=== PATIENT | male | born 1950 | race Caucasian/White ===

== ENCOUNTER 2017-07-05 22:05 | Observation (INO) | payer OTHER ==
[~2017-07-05] VITALS: Ht 172.7 cm; Wt 116.0 kg
[~2017-07-05 22:05] MED LIST: ASPI81TA28 PO; ATV/1 PO; CEPH500C2 PO; CHOL100027 PO; LPT40 PO; LSN/10125 PO; MELA1TAB54 PO; OMEG340C PO; PRLSR20 PO
[2017-07-05] MEDS ORDERED: ASPIRIN 324 MG CHEW PO STA (23:03)
--- NOTE | 2017-07-05 23:15 | EMERGENCY ROOM VISIT NOTE ---
History First contact with patient: 22:53 Chief Complaint: CHEST PAIN Stated Complaint: CHEST PAINS Nursing Triage Summary: Patient states "This afternoon when I was driving home, I started with a pain in my chest but it went away. Then it came back. It comes and goes." Denies pain at present. Denies shortness of breath, nausea, and diaphoresis. Hx anxiety. Patient had a heart catheterization in 1991 that came out negative. History of Present Illness The patient is a 67 year old male who presents to the Emergency Room for evaluation of persistent Chest Pain. Patient notes several increasing episodes of left chest pressure beginning this afternoon. Associated with nothing else. He was in car at the time. Denies sob, nausea, vomiting, palpitations, weakness, lightheadedness, leg swelling, calf pain. He has no dvt/pe history nor family history of this. Denies CAD history. He had cath 1991 and stress test "several years ago" which were both normal per patient. He has history of DLP, HTN, Obesity, Extensive Fam Hx CAD. Denies DMII, smoking. No trauma, injuries. Admits chronic sob with stairs which he relates secondary to sedentary lifestyle. No medications prior to arrival. Nothing makes better nor worse. Denies pain currently. No medications taken for this pain but he did take his normal ASA, Lisinopril and Statin today. Source of History: patient Onset: this afternoon Position: chest Quality: other (chest pain) Timing: other (persistent) Associated Symptoms: No nausea, No vomiting, No weakness Note: Patient denies: sob, palpitations, lightheadedness, leg swelling, calf pain Review of Systems See HPI for pertinent positives & negatives. A total of 10 systems reviewed and were otherwise negative. Past Medical/Surgical History Medical Problems: (1) Chest pain (2) Diverticulosis Colon (W/O Ment Of Hemorrhage) (3) Hyperlipidemia Nec/Nos (4) Hypertension Nos Family History Cancer Heart disease Social History Smoking Status: Never Smoker Marital Status: Housing Status: lives with family Occupation Status: employed Current/Historical Medications Scheduled Aspirin (Aspirin Ec), 81 MG PO DAILY Atorvastatin (Lipitor), 40 MG PO DAILY Cholecalciferol (Vitamin D 1000 Unit), 1,000 INTER.UNIT PO DAILY Hctz/Lisinopril (Lisinopril/Hctz 10/12.5 Mg), 1 TAB PO DAILY Melatonin (Melatonin), 5 MG PO HS [place]-3 Fatty Acids ([place] 3), 1 CAP PO DAILY Omeprazole (Prilosec), 20 MG PO DAILY Scheduled PRN Lorazepam (Ativan), 1 MG PO HS PRN for Sleep Meclizine HCl (Meclizine 25), 25 MG PO TID PRN for Dizziness or Vertigo Trazodone Hcl (Trazodone), 1-3 TABS PO HS PRN for Sleep Physical Exam Vital Signs Date Time Temp Pulse Resp B/P (MAP) Pulse Ox O2 Delivery O2 Flow Rate FiO2 07/06/17 00:36 51 17 95 07/06/17 00:31 120/65 07/06/17 00:06 54 18 95 07/06/17 00:01 115/62 07/05/17 23:36 58 19 96 07/05/17 23:31 119/59 07/05/17 23:30 57 19 94 07/05/17 23:23 113/59 07/05/17 22:38 55 07/05/17 22:37 55 20 144/80 97 Room Air 07/05/17 22:11 37.0 64 18 155/68 97 Room Air Physical Exam GENERAL: Patient is well appearing and in no acute distress. HEENT: No acute trauma, normocephalic atraumatic, mucous membranes moist, no nasal congestion, no scleral icterus. NECK: No stridor, no adenopathy, no meningismus, trachea is midline. LUNGS: No dyspnea. Clear to auscultation and equal bilaterally. No wheeze, no rhonchi. HEART: Regular rate and rhythm. No murmurs, rubs, gallops appreciated. ABDOMEN: Soft, nontender, bowel sounds positive, no masses appreciated, no peritonitis. BACK: No midline tenderness, no CVA tenderness EXTREMITIES: Normal motion all extremities, no cyanosis, no edema. NEUROLOGIC: Alert and oriented, no acute motor or sensory deficits, no focal weakness, cranial nerves grossly intact. SKIN: No rash, no jaundice, no diaphoresis. Medical Decision & Procedures ER Provider Diagnostic Interpretation: Radiology results and stated below per my review and radiologist interpretation: Chest x-ray: 2 views: Multiple nodules, no infiltrate, and no effusion. Laboratory Results Test 07/05/17 22:45 07/05/17 22:57 07/06/17 00:19 Est Creatinine Clear Calc Drug Dose 66.3 ml/min Creatine Kinase MB 1.9 ng/ml (0.5-3.6) Creatine Kinase MB Ratio (0-3.0) Bedside Troponin I < 0.030 ng/ml (0-0.045) Magnesium Level 1.9 mg/dl (1.8-2.4) Direct Bilirubin < 0.1 mg/dl (0-0.2) Total Creatine Kinase 115 U/L (39-308) Lipase 195 U/L (73-393) Thyroid Stimulating Hormone (TSH) 2.980 uIu/ml (0.300-4.500) Laboratory results as reviewed by me. Medications Administered Medications (Trade) Dose Ordered Sig/Terence Route Start Time Stop Time Status Last Admin Dose Admin Aspirin (Aspirin Chew) 162 mg NOW STAT PO 07/05/17 23:03 07/05/17 23:04 DC 07/05/17 23:03 162 MG ECG Per My Interpretation Indication: chest pain Rate (beats per minute): 63 Rhythm: normal sinus Findings: PVC, no acute ischemic change ED Course 2250: The patient was evaluated in room C9. A complete history and physical exam was performed. 0016: I reevaluated the patient and discussed some test findings. 0017: Discussed the patient's case with Evelin Zapata. He will evaluate the patient for further treatment. 0026: I reevaluated the patient and updated him on test findings and the treatment plan. He verbalized agreement of the treatment plan. Medical Decision Differential: Cardiac Ischemia (STEMI, NSTEMI, Unstable Angina, etc), Aortic Dissection, Arrhythmia, Pulmonary Embolism, Pneumonia, Pneumothorax, MSK, Infectious, Pericarditis/Myocarditis, Esophageal Rupture, Gastrointestinal, amongst other pathologies entertained. 67 yr old male arrives with left sided intermittent chest pressure. Multiple cardiac risk factors. No current symptoms. Given ASA. EKG negative for ischemia. Trop currently negative. Reviewed this with patient who is agreeable to staying in hospital for cardiac rule out as well as further eval of previously known lung nodules. Abdomen is soft, nontender. No current pain. Did just have care travel though without shob, tachy, leg pain/swelling, nor PE/DVT history I will defer CT Chest decision to hospitalist. Medication Reconcilliation Current Medication List: was personally reviewed by me Blood Pressure Screening Patient's blood pressure: Elevated blood pressure Blood pressure disposition: Elevated BP felt to be situational Consults Time Called: 16 Consulting Physician: Evelin Zapata Returned Call: 16 Discussed the patient's case with Evelin Zapata. He will evaluate the patient for further treatment. Impression Primary Impression: Left sided chest pain Departure Information Dispostion Being Evaluated By Hospitalist Referrals No Doctor, Assigned (PCP) Patient Instructions [facility]
[2017-07-05 23:30] LABS: BASO % 0.3 %; BASO ABS # 0.02 K/uL (0-0.2); EOS % 2.6 %; EOS ABS # 0.17 K/uL (0-0.5); HEMATOCRIT 38.4 % (42-52); HEMOGLOBIN 13.4 g/dL (14.0-18.0); IG# 0.02 K/uL (0.00-0.02); LYMPH % 40.8 %; LYMPH ABS # 2.66 K/uL (1.2-3.4); MEAN CELL VOLUME 92.8 fL (80-100); MEAN CORPUSCULAR HEMOGLOBIN 32.4 pg (25-34); MEAN CORPUSCULAR HGB CONC 34.9 g/dl (32-36); MEAN PLATELET VOLUME 9.1 fL (7.4-10.4); MONO % 7.1 %; MONO ABS # 0.46 K/uL (0.11-0.59); NEUT % 48.9 %; NEUT ABS # 3.19 K/uL (1.4-6.5); PLATELET COUNT 232 K/uL (130-400); RED CELL DISTRIBUTION WIDTH CV 13.4 % (11.5-14.5); RED CELL DISTRIBUTION WIDTH SD 45.7 fL (36.4-46.3); WHITE BLOOD COUNT 6.52 K/uL (4.8-10.8)
[2017-07-06] VITALS (7 sets, daily range): BP systolic 124–170; BP diastolic 68–78; PULSE 56–72; TEMP 36.7–37; O2SAT 94–98; Ht 172.7 cm; Wt 116.0 kg
[2017-07-06 00:08] LABS: BLOOD UREA NITROGEN 29 mg/dl (7-18); CALCIUM 8.9 mg/dl (8.5-10.1); CARBON DIOXIDE 25 mmol/L (21-32); CKMB 1.9 ng/ml (0.5-3.6); GLUCOSE 105 mg/dl (70-99); SODIUM 139 mmol/L (136-145)
[2017-07-06 00:40] LABS: POTASSIUM 4.2 mmol/L (3.5-5.1)
[2017-07-06 01:02] LABS: ALBUMIN 3.5 gm/dl (3.4-5.0); ALKALINE PHOSPHATASE 178 U/L (45-117); ALT/SGPT 107 U/L (12-78); AST/SGOT 64 U/L (15-37); LIPASE 195 U/L (73-393); TOTAL PROTEIN 7.1 gm/dl (6.4-8.2)
[2017-07-06] MEDS ORDERED: LORAZEPAM 1 MG TAB PO ONE (01:04)
[2017-07-06] MEDS ORDERED: NITROGLYCERIN 0.4 MG SL PER TAB CHARGE SL PRN (01:15)
[2017-07-06] MEDS ORDERED: ACETAMINOPHEN 325 MG TAB PO PRN ×2 (01:15→04:45)
[2017-07-06] MEDS ORDERED: LORAZEPAM 2 MG/ML 1 ML VIAL IV PRN (01:15)
[2017-07-06] MEDS ORDERED: MoRPHine SULFATE 4 MG/ML 1 ML CARP\\VIAL IV PRN (01:15)
[2017-07-06] MEDS ORDERED: PROCHLORPERAZINE INJ 5 MG in SYRINGE 4 ML IV PRN (01:15)
[2017-07-06] MEDS ORDERED: LORAZEPAM 1 MG TAB PO PRN (01:15)
[2017-07-06] MEDS ORDERED: TRAMADOL HCL 50 MG TAB PO PRN (01:15)
[2017-07-06 01:20] LABS: PTT PATIENT 26.1 SECONDS (21.0-31.0)
[2017-07-06] MEDS ORDERED: LORAZEPAM 1 MG TAB ONE (01:26)
[2017-07-06] MEDS ORDERED: OPTIRAY 320 IV PRN (01:30)
[2017-07-06] MEDS ORDERED: LORAZEPAM INJ 0.5 MG in SYRINGE 0.75 ML IV PRN (02:00)
[2017-07-06] MEDS ORDERED: NSS + 20MEQ KCL 1000ML 1,000 ML IV SCH (02:00)
[2017-07-06] MEDS ORDERED: TRAZ50TA35 PO (02:10)
[2017-07-06] MEDS ORDERED: MECL-91 PO (02:10)
[2017-07-06 04:18] LABS: BASO % 0.2 %; BASO ABS # 0.01 K/uL (0-0.2); EOS % 3.5 %; HEMATOCRIT 37.7 % (42-52); HEMOGLOBIN 12.9 g/dL (14.0-18.0); IG# 0.01 K/uL (0.00-0.02); LYMPH % 41.1 %; LYMPH ABS # 2.36 K/uL (1.2-3.4); MEAN CELL VOLUME 93.5 fL (80-100); MEAN CORPUSCULAR HGB CONC 34.2 g/dl (32-36); MEAN PLATELET VOLUME 8.9 fL (7.4-10.4); MONO % 5.1 %; MONO ABS # 0.29 K/uL (0.11-0.59); NEUT % 49.9 %; NEUT ABS # 2.87 K/uL (1.4-6.5); PLATELET COUNT 203 K/uL (130-400); RED CELL DISTRIBUTION WIDTH CV 13.2 % (11.5-14.5); RED CELL DISTRIBUTION WIDTH SD 45.2 fL (36.4-46.3); RETIC COUNT % 1.3 % (0.5-2.0); WHITE BLOOD COUNT 5.74 K/uL (4.8-10.8)
[2017-07-06 04:36] LABS: ALBUMIN 3.1 gm/dl (3.4-5.0); ALT/SGPT 97 U/L (12-78); AST/SGOT 54 U/L (15-37); BLOOD UREA NITROGEN 26 mg/dl (7-18); CALCIUM 8.1 mg/dl (8.5-10.1); CARBON DIOXIDE 24 mmol/L (21-32); GLUCOSE 115 mg/dl (70-99); POTASSIUM 4.1 mmol/L (3.5-5.1); SODIUM 139 mmol/L (136-145)
[2017-07-06 04:39] LABS: ALKALINE PHOSPHATASE 165 U/L (45-117); TOTAL PROTEIN 6.6 gm/dl (6.4-8.2); TRANSFERRIN 194 mg/dl (200-360)
[2017-07-06] MEDS ORDERED: IV FLUIDS COMPLETED PRN (05:30)
--- NOTE | 2017-07-06 05:59 | HISTORY & PHYSICAL EXAMINATION ---
DATE OF ADMISSION: 07/06/2017 PRIMARY CARE DOCTOR: Dr. Irby. HISTORY OF PRESENT ILLNESS: History obtained from patient, family, records. Medical history significant for hypertension, sleep apnea on CPAP, past tobacco abuse, hyperlipidemia, pulmonary nodules, anxiety disorder, chronic anemia (baseline hemoglobin of 13) Patient had left-sided chest pain today, nonradiating with some shortness of breath while driving. May have been from anxiety as per family. Patient currently comfortable in the Emergency Room. MEDICAL HISTORY: As above. A stress echo from February 2013 was normal, SURGERIES: He has had a hernia repair, shoulder repair, rotator cuff repair, knee surgery, and hand dorsum tendon repair. HOME MEDICATIONS: Include aspirin, atorvastatin, lisinopril/HCTZ, lorazepam, meclizine, melatonin, omeprazole. ALLERGIES: No known drug allergies. FAMILY HISTORY: Family history of heart disease, strokes, colon cancer. PERSONAL AND SOCIAL HISTORY: Past tobacco use. No chronic alcoholic beverages. 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 REVIEW OF SYSTEMS: As per HPI, all other ROS negative. PHYSICAL EXAMINATION: VITAL SIGNS: Blood pressure was noted to be 138/75, pulse rate 72, RR 17, T 37 sats 97% on room air. GENERAL: Noted to be obese, slightly anxious, no respiratory distress. SKIN: Pallor, warm. HEENT: alopecia. Pale conjunctivae. No ptosis. Dry mucosa. NECK: Short, supple. CHEST: Decreased effort. No tenderness. HEART: RRR, no murmur. ABDOMEN: Some distention, nontender EXTREMITIES: Minimal LE edema, no tenderness. no gross deformity ____ NEUROLOGIC: Coherent, no gross focality. LABORATORY DATA: Hemoglobin noted to be 13.4, WBC 4 platelets 200 Sodium noted to be 138, potassium 4.2, chloride noted to be 107, CO2 25, BUN 29, creatinine 1.3, glucose 105. Troponin 0.015. IMAGING DATA: CTA initial read CAD, no evidence of pulmonary embolus or aortic dissection, extensive mitral annular calcification; calcified granuloma, left lower lobe; small hiatal hernia. EKG as per my interpretation - rate 65, normal sinus rhythm, PVCs. ASSESSMENT: 1. Chest pain Possibly from anxiety rule out acute coronary syndrome. 2. Hyperlipidemia as per records. 3. Hypertension. Stable 4. Chronic anemia, hemoglobin at baseline Patient unaware of previous diagnosis 5. Past tobacco abuse 6. KINSEY on CPAP PLAN: Observation PCU ASA for now for CAD prevention until ACS ruled out. Follow cardiac markers. Dobutamine stress echo in the morning if next troponin negative. Anxiolytic when necessary Anemia workup DVT prophylaxis. Lovenox subQ. Full code. MTDD
[2017-07-06] MEDS ORDERED: ENOXAPARIN 40 MG/0.4 ML SYR SC SCH (06:00)
--- NOTE | 2017-07-06 06:30 | DIAGNOSTIC IMAGING REPORT ---
(CHEST FOR PE) ANGIO WITH CT DOSE: 759.20 mGy.cm HISTORY: Chest pain dyspnea TECHNIQUE: Multiaxial CT images of the chest were performed following the intravenous administration of contrast to evaluate the pulmonary arteries. Maximal intensity projection images were also obtained. A dose lowering technique was utilized adhering to the principles of ALARA. COMPARISON STUDY: None. FINDINGS: There is a normal caliber thoracic aorta with no evidence for dissection. There is no evidence for pulmonary embolus. No pleural effusions. No pneumothorax. The liver and spleen are unremarkable. No mediastinal or hilar lymphadenopathy. The central airways are patent. The lungs are clear. Slight peribronchial thickening throughout both hemithoraces. Scattered atelectasis. Calcified granuloma left midlung. Several calcified hilar and mediastinal nodes. IMPRESSION: No evidence for pulmonary embolus. The lungs are clear. Mild peribronchial thickening. The above report was generated using voice recognition software. It may contain grammatical, syntax or spelling errors. Electronically signed by: Cj Garcia M.D. 07/06/2017 6:29 AM Dictated Date/Time: 07/06/2017 6:22 AM
--- NOTE | 2017-07-06 06:46 | DIAGNOSTIC IMAGING REPORT ---
CHEST ONE VIEW PORTABLE CLINICAL HISTORY: Chest Pain dyspnea COMPARISON STUDY: 04/29/2011 FINDINGS: Poorly defined parenchymal atelectasis left lung base. Lungs otherwise are clear. Diaphragms are smooth. Costophrenic angles are sharp. IMPRESSION: Minimal atelectasis left base. Otherwise negative chest. The above report was generated using voice recognition software. It may contain grammatical, syntax or spelling errors. Electronically signed by: Cj Garcia M.D. 07/06/2017 6:45 AM Dictated Date/Time: 07/06/2017 6:43 AM
[2017-07-06] MEDS ORDERED: PANTOprazole SOD 40 MG TAB PO SCH (09:00)
[2017-07-06] MEDS ORDERED: LISINOPRIL 10 MG TAB PO SCH (09:00)
[2017-07-06] MEDS ORDERED: ASPIRIN 81 MG ECTAB PO SCH (09:00)
[2017-07-06] MEDS ORDERED: METOPROLOL TARTRATE 1 MG/ML VIAL ONE ×2 (13:57)
[2017-07-06] MEDS ORDERED: ATROPINE SULFATE 0.1 MG/ML 5ML SYR ONE ×2 (13:57)
[2017-07-06] MEDS ORDERED: DOBUTamine HCL 12.5 MG/ML 20 ML VIAL ONE (13:57)
--- NOTE | 2017-07-06 14:12 | Progress Note ---
Internal Med Progress Note Date of Service: Jul 06, 2017. Provider Documentation: SUBJECTIVE: Seen and examined at bedside States chest pain resolved Denies dizziness, nausea, SOB Family at bedside No other complaints OBJECTIVE: Vital Signs-as noted below Physical Exam: General Appearance: Obese, no apparent distress Head: normocephalic, Atraumatic Eyes: normal inspection, EOMI, PERRL Neck: supple, Trachea midline Respiratory/Chest: Normal breath sounds, CTA Cardiovascular: S1, S2, No murmur Abdomen/GI:Soft, Non tender, Bowel sounds present Extremities/Musculoskelatal:normal inspection, no edema Neurologic/Psych:AAOX3, grossly no focal neurological deficits Skin: normal color, warm Lab data as noted below. ASSESSMENT & PLAN: Chest Pain: R/O ACS Troponin: X 2:Negative EKG:NSR, 1st degree AV block CXR:Minimal atelectasis left base. Otherwise negative chest. CTA:No evidence for pulmonary embolus. The lungs are clear. Mild peribronchial thickening. TSH normal Continue Aspirin Negative stress test. Hypertension: Stable continue lisinopril Chronic anemia: hemoglobin at baseline Anxiety disorder: Lorazepam PRN Past tobacco abuse KINSEY continue CPAP Pulmonary Nodules: Advised to follow up with his Etl Bi Developer as outpatient DVT Px: Lovenox SQ Code Status: Full code Disposition: Expect to discharge home when stable Follow up with your PCP on July 11, 2017 at 10:45AM Follow up with your Match Maker on July at 2:45pm Seek immediate medical attention if your symptoms reoccur or worsen Vital Signs: Date Time Temp Pulse Resp B/P (MAP) Pulse Ox O2 Delivery O2 Flow Rate FiO2 07/06/17 11:37 36.7 57 16 125/74 (91) 94 Room Air 07/06/17 08:00 36.8 62 18 129/68 (88) 98 Room Air 07/06/17 08:00 98 Room Air 07/06/17 06:25 52 07/06/17 05:35 68 16 170/78 (108) 97 Room Air 07/06/17 03:11 56 17 07/06/17 03:04 97 Room Air 07/06/17 02:55 97 Room Air 07/06/17 02:41 66 16 07/06/17 02:37 36.9 56 16 137/75 97 Room Air 07/06/17 02:12 83 07/06/17 02:11 80 19 07/06/17 01:56 138/75 07/06/17 01:41 71 17 07/06/17 01:32 111/105 07/06/17 01:11 58 15 07/06/17 01:01 112/97 07/06/17 00:41 55 19 95 07/06/17 00:36 51 17 95 07/06/17 00:31 120/65 07/06/17 00:06 54 18 95 07/06/17 00:01 115/62 07/05/17 23:36 58 19 96 07/05/17 23:31 119/59 07/05/17 23:30 57 19 94 07/05/17 23:23 113/59 07/05/17 22:38 55 07/05/17 22:37 55 20 144/80 97 Room Air 07/05/17 22:11 37.0 64 18 155/68 97 Room Air Lab Results: Results Past 24 Hours Test 07/05/17 22:45 07/05/17 22:57 07/06/17 00:19 07/06/17 00:59 Range/Units White Blood Count 6.52 4.8-10.8 K/uL Red Blood Count 4.14 4.7-6.1 M/uL Hemoglobin 13.4 14.0-18.0 g/dL Hematocrit 38.4 42-52 % Mean Corpuscular Volume 92.8 80-100 fL Mean Corpuscular Hemoglobin 32.4 25-34 pg Mean Corpuscular Hemoglobin Concent 34.9 32-36 g/dl Platelet Count 232 130-400 K/uL Mean Platelet Volume 9.1 7.4-10.4 fL Neutrophils (%) (Auto) 48.9 % Lymphocytes (%) (Auto) 40.8 % Monocytes (%) (Auto) 7.1 % Eosinophils (%) (Auto) 2.6 % Basophils (%) (Auto) 0.3 % Neutrophils # (Auto) 3.19 1.4-6.5 K/uL Lymphocytes # (Auto) 2.66 1.2-3.4 K/uL Monocytes # (Auto) 0.46 0.11-0.59 K/uL Eosinophils # (Auto) 0.17 0-0.5 K/uL Basophils # (Auto) 0.02 0-0.2 K/uL RDW Standard Deviation 45.7 36.4-46.3 fL RDW Coefficient of Variation 13.4 11.5-14.5 % Immature Granulocyte % (Auto) 0.3 % Immature Granulocyte # (Auto) 0.02 0.00-0.02 K/uL Sodium Level 139 136-145 mmol/L Potassium Level 4.2 3.5-5.1 mmol/L Chloride Level 107 98-107 mmol/L Carbon Dioxide Level 25 21-32 mmol/L Anion Gap 7.0 3-11 mmol/L Blood Urea Nitrogen 29 7-18 mg/dl Creatinine 1.30 0.60-1.40 mg/dl Est Creatinine Clear Calc Drug Dose 66.3 ml/min Estimated GFR () 64.5 Estimated GFR (Non- 55.7 BUN/Creatinine Ratio 22.3 10-20 Random Glucose 105 70-99 mg/dl Calcium Level 8.9 8.5-10.1 mg/dl Total Creatine Kinase 115 39-308 U/L Creatine Kinase MB 1.9 0.5-3.6 ng/ml Creatine Kinase MB Ratio 0-3.0 Troponin I < 0.015 0-0.045 ng/ml Bedside Troponin I < 0.030 0-0.045 ng/ml Magnesium Level 1.9 1.8-2.4 mg/dl Total Bilirubin 0.3 0.2-1 mg/dl Direct Bilirubin < 0.1 0-0.2 mg/dl Aspartate Amino Transf (AST/SGOT) 64 15-37 U/L Alanine Aminotransferase (ALT/SGPT) 107 12-78 U/L Alkaline Phosphatase 178 45-117 U/L Total Protein 7.1 6.4-8.2 gm/dl Albumin 3.5 3.4-5.0 gm/dl Lipase 195 73-393 U/L Thyroid Stimulating Hormone (TSH) 2.980 0.300-4.500 uIu/ml Prothrombin Time 10.0 9.0-12.0 SECONDS Prothromb Time International Ratio 1.0 0.9-1.1 Activated Partial Thromboplast Time 26.1 21.0-31.0 SECONDS Partial Thromboplastin Ratio 1.0 D-Dimer 740 0-500 ug/L FEU Test 07/06/17 04:05 Range/Units White Blood Count 5.74 4.8-10.8 K/uL Red Blood Count 4.03 4.7-6.1 M/uL Hemoglobin 12.9 14.0-18.0 g/dL Hematocrit 37.7 42-52 % Mean Corpuscular Volume 93.5 80-100 fL Mean Corpuscular Hemoglobin 32.0 25-34 pg Mean Corpuscular Hemoglobin Concent 34.2 32-36 g/dl Platelet Count 203 130-400 K/uL Mean Platelet Volume 8.9 7.4-10.4 fL Neutrophils (%) (Auto) 49.9 % Lymphocytes (%) (Auto) 41.1 % Monocytes (%) (Auto) 5.1 % Eosinophils (%) (Auto) 3.5 % Basophils (%) (Auto) 0.2 % Neutrophils # (Auto) 2.87 1.4-6.5 K/uL Lymphocytes # (Auto) 2.36 1.2-3.4 K/uL Monocytes # (Auto) 0.29 0.11-0.59 K/uL Eosinophils # (Auto) 0.20 0-0.5 K/uL Basophils # (Auto) 0.01 0-0.2 K/uL RDW Standard Deviation 45.2 36.4-46.3 fL RDW Coefficient of Variation 13.2 11.5-14.5 % Immature Granulocyte % (Auto) 0.2 % Immature Granulocyte # (Auto) 0.01 0.00-0.02 K/uL Absolute Reticulocyte Count 0.05 0.02-0.10 10^6/uL Percent Reticulocyte Count 1.3 0.5-2.0 % Sodium Level 139 136-145 mmol/L Potassium Level 4.1 3.5-5.1 mmol/L Chloride Level 108 98-107 mmol/L Carbon Dioxide Level 24 21-32 mmol/L Anion Gap 7.0 3-11 mmol/L Blood Urea Nitrogen 26 7-18 mg/dl Creatinine 1.20 0.60-1.40 mg/dl Est Creatinine Clear Calc Drug Dose 71.8 ml/min Estimated GFR () 71.1 Estimated GFR (Non- 61.3 BUN/Creatinine Ratio 22.0 10-20 Random Glucose 115 70-99 mg/dl Calcium Level 8.1 8.5-10.1 mg/dl Iron Level 77 35-175 mcg/dl Total Iron Binding Capacity 242 250-450 mcg/dl Transferrin 194 200-360 mg/dl Transferrin % Saturation 28 20-50 % Ferritin 482.7 8.0-388.0 ng/ml Total Bilirubin 0.2 0.2-1 mg/dl Aspartate Amino Transf (AST/SGOT) 54 15-37 U/L Alanine Aminotransferase (ALT/SGPT) 97 12-78 U/L Alkaline Phosphatase 165 45-117 U/L Troponin I < 0.015 0-0.045 ng/ml Total Protein 6.6 6.4-8.2 gm/dl Albumin 3.1 3.4-5.0 gm/dl Globulin 3.5 2.5-4.0 gm/dl Albumin/Globulin Ratio 0.9 0.9-2 Vitamin B12 Level 241 211-911 pg/mL Folate 7.64 >5.38 ng/mL
[2017-07-06] MEDS ORDERED: PERFLUTREN LIPID MICROSPHERE (DEFINITY) IV ONE (15:26)
--- NOTE | 2017-07-06 16:37 | Discharge Instructions ---
Discharge Instructions Date of Service Jul 06, 2017. Admission Reason for Admission: Chest Pain Discharge Discharge Diagnosis / Problem: Chest Pain Discharge Goals Goal(s): Decrease discomfort, Improve function Activity Recommendations Activity Limitations: resume your previous activity Exercise/Sports Limitations: as tolerated . Instructions / Follow-Up Instructions / Follow-Up Follow up with your PCP on July 11, 2017 at 10:45AM Follow up with your Military Analyst on July at 2:45pm Seek immediate medical attention if your symptoms reoccur or worsen Current Hospital Diet Patient's current hospital diet: AHA Diet (Heart Healthy) Discharge Diet Recommended Diet: AHA Diet (Heart Healthy) Pending Studies Studies pending at discharge: no Medical Emergencies . Who to Call and When: Medical Emergencies: If at any time you feel your situation is an emergency, please call 911 immediately. . Non-Emergent Contact Non-Emergency issues call your: Primary Care Provider, Military Analyst Call Non-Emergent contact if: you have a fever, your pain is not controlled, your pain is worsening, your pain is unusual for you, your pain is concerning you, you have any medication questions Seek immediate medical attention if your symptoms reoccur or worsen . . "Provider Documentation" section prepared by Jeremy Donato. .
--- NOTE | 2017-07-06 16:40 | DOBUTAMINE ECHO ---
*NOTICE TO RECEIVING LIBERTARIAN AGENCY This information is strictly Confidential and protected under [place] law. [place] law prohibits you from making any further disclosure of this information unless further disclosure is expressly permitted by the written consent of the person to whom it pertains or is authorized by law. A general authorization for the release of medical or other information is not sufficient for this purpose. Hospital accepts no responsibility if the information is made available to any other person, INCLUDING THE PATIENT. Interpretation Summary * Name: SLADE FORTUNE Study Date: 07/06/2017 02:24 PM BP: 149/66 mmHg * Patient Location: [facility]\S\N288\S\1 HR: 63 * : 1950 (M/d/yyyy) Gender: Male Height: 68 in * Age: 67 yrs Ethnicity: [place] Weight: 255 lb * Ordering Physician: Arnol Massey * Referring Physician: Self, Referred * Performed By: Darwin Krueger RCS * * Reason For Study: CHEST PAIN * BSA: 2.3 m2 * -- Conclusions -- * Nonischemic exercise stress echocardiogram. * No arrhythmias. * Normal HR and BP response to dobutamine infusion. * At rest, normal LV chamber size with mild concentric LVH. * Normal LV systolic function, EF 65-70%. * No segmental left ventricular wall motion abnormalities are noted. * Grade II diastolic dysfunction. * Aortic valve sclerosis moderate, without significant aortic valvular stenosis. * Moderate mitral annular calcifications. * Mild left atrial enlargement. Procedure Details * DOBUTAMINE ECHO, CPT#[id number] * ECHO COLOR FLOW, CPT #[id number] * ECHO DOPPLER, CPT #[id number] * A contrast injection of Definity was performed to improve assessment of LV function. * Contrast was injected into an intravenous site in the right arm. * One vial of Definity ultrasound contrast was diluted in normal saline to a total volume of 10 ml. A total of '3' ml of solution was administered during imaging. * Lot # [id number] of Definity utilized for procedure. * Expiration date . * The attending nurse who injected the contrast agent was Mark Callahan RN. Left Ventricle * The left ventricle is normal in size. * There is mild concentric left ventricular hypertrophy. * Left ventricular systolic function is normal. * No segmental left ventricular wall motion abnormalities are noted. * Ejection Fraction = 65-70%. * Resting wall motion: Normal. Stress wall motion: Appropriate increase in Left ventricular systolic function and decrease in cavity size. No stress induced segmental wall motion abnormalities. Right Ventricle * The right ventricular cavity size is normal (basal dimension <4.2 cm in right ventricular apical 4-chamber view). * The right ventricular systolic function is normal as assessed by tricuspid annular plane systolic excursion (TAPSE) (normal >1.5 cm). Atria * The left atrium is mildly dilated. * Right atrial size is normal. * No ASD detected; PFO is not assessed. * The atrial septum is aneurysmal. Mitral Valve * There is moderate mitral annular calcification. * There is no mitral valve stenosis. * There is no mitral regurgitation noted. Tricuspid Valve * The tricuspid valve is normal in structure and function. Aortic Valve * The aortic valve is trileaflet. * Aortic valve sclerosis moderate, without significant aortic valvular stenosis. * There is no significant aortic regurgitation. Pulmonic Valve * The pulmonary valve is not well seen, but the Doppler examination is normal without significant regurgitation or stenosis. Great Vessels * The aortic root and proximal ascending aorta are normal sized. Pericardium * There is no pericardial effusion. Stress Parameters * Normal baseline electrocardiogram. * No arrhythmia were noted with stress. * Stress ECG: No ST changes. No arrhythmias. * The stress portion of this study was personally supervised by the undersigned interpreting physician. * Rest heart rate was '63' BPM. * Rest blood pressure was '149/66' * Maximum heart rate achieved was 148 bpm. * Maximum heart rate was 98 % of maximum age-predicted heart rate. * Maximum blood pressure was '151/64' * Maximum Dobutamine infusion rate was '40' mcg/kg/min. * Dobutamine infusion was terminated due to achieving target heart rate * A total of 5 mg of IV Metoprolol was administered to reverse Dobutamine-induced tachycardia. * The patient did not exhibit any symptoms during drug infusion. * Normal blood pressure response to exercise. Left Ventricular Diastolic Function * Diastolic dysfunction, Grade II (pseudonormalization pattern). MMode 2D Measurements and Calculations IVSd 1.1 cm IVSs 1.8 cm LVIDd 5.2 cm LVIDs 3.6 cm LVPWd 1.1 cm LVPWs 1.8 cm IVS/LVPW 1.0 FS 30.6 % EDV(Teich) 130.5 ml ESV(Teich) 55.2 ml EF(Teich) 57.7 % EDV(cubed) 142.0 ml ESV(cubed) 47.5 ml EF(cubed) 66.6 % % IVS thick 59.8 % % LVPW thick 55.6 % LV mass(C)d 229.3 grams LV mass(C)dI 101.2 grams/m\S\2 LV mass(C)s 268.3 grams LV mass(C)sI 118.4 grams/m\S\2 SV(Teich) 75.3 ml SI(Teich) 33.2 ml/m\S\2 SV(cubed) 94.5 ml SI(cubed) 41.7 ml/m\S\2 Ao root diam 3.6 cm Ao root area 10.4 cm\S\2 ACS 1.5 cm LA dimension 4.5 cm asc Aorta Diam 3.7 cm LA/Ao 1.3 EDV(MOD-sp4) 139.1 ml ESV(MOD-sp4) 41.3 ml EF(MOD-sp4) 70.3 % EDV(MOD-sp2) 131.8 ml ESV(MOD-sp2) 39.9 ml EF(MOD-sp2) 69.7 % SV(MOD-sp4) 97.8 ml SI(MOD-sp4) 43.2 ml/m\S\2 SV(MOD-sp2) 91.9 ml SI(MOD-sp2) 40.6 ml/m\S\2 Doppler Measurements and Calculations MV E max elroy 91.0 cm/sec MV A max elroy 83.8 cm/sec MV E/A 1.1 MV P1/2t max elroy 96.0 cm/sec MV P1/2t 73.5 msec MVA(P1/2t) 3.0 cm\S\2 MV dec slope 382.4 cm/sec\S\2 MV dec time 0.23 sec Ao V2 max 171.4 cm/sec Ao max PG 11.7 mmHg Ao max PG (full) 4.8 mmHg LV V1 max PG 6.9 mmHg LV V1 max 131.5 cm/sec PA V2 max 97.4 cm/sec PA max PG 3.8 mmHg TR max elroy 245.5 cm/sec
--- NOTE | 2017-07-06 16:42 | Discharge Summary ---
Discharge Summary Date of Service Jul 06, 2017. Discharge Summary Admission Date: Jul 06, 2017 at 00:36 Discharge Date: Jul 06, 2017 Discharge Disposition: Home Principal Diagnosis: Chest Pain Procedures: CTA: No evidence for pulmonary embolus. The lungs are clear. Mild peribronchial thickening. CXR: Minimal atelectasis left base. Otherwise negative chest. Stress Test: * Nonischemic exercise stress echocardiogram. * No arrhythmias. * Normal HR and BP response to dobutamine infusion. * At rest, normal LV chamber size with mild concentric LVH. * Normal LV systolic function, EF 65-70%. * No segmental left ventricular wall motion abnormalities are noted. * Grade II diastolic dysfunction. * Aortic valve sclerosis moderate, without significant aortic valvular stenosis. * Moderate mitral annular calcifications. * Mild left atrial enlargement. Consultations: None Medication Reconciliation Continued Medications: Aspirin (Aspirin Ec) 81 Mg Tab 81 MG PO DAILY Atorvastatin (Lipitor) 40 Mg Tab 40 MG PO DAILY Cholecalciferol (Vitamin D 1000 Unit) 1,000 Unit Cap 1000 INTER.UNIT PO DAILY, CAP Hctz/Lisinopril (Lisinopril/Hctz 10/12.5 Mg) 1 Ea Tab 1 TAB PO DAILY, TAB Lorazepam (Ativan) 1 Mg Tab 1 MG PO HS PRN for Sleep Meclizine HCl (Meclizine 25) 25 Mg Tab 25 MG PO TID PRN for Dizziness or Vertigo Melatonin (Melatonin) 5 Mg Tab 5 MG PO HS [place]-3 Fatty Acids ([place] 3) 1 Cap Cap 1 CAP PO DAILY Omeprazole (Prilosec) 20 Mg Capcr 20 MG PO DAILY, CAP TAKE THIS MEDICATION ONCE A DAY 30 MINUTES BEFORE A MEAL. Trazodone Hcl (Trazodone) 50 Mg Tab 1-3 TABS PO HS PRN for Sleep Admission Information HPI (per Admitting provider): HISTORY OF PRESENT ILLNESS: History obtained from patient, family, records. Medical history significant for hypertension, sleep apnea on CPAP, past tobacco abuse, hyperlipidemia, pulmonary nodules, anxiety disorder, chronic anemia (baseline hemoglobin of 13) Patient had left-sided chest pain today, nonradiating with some shortness of breath while driving. May have been from anxiety as per family. Patient currently comfortable in the Emergency Room. Physical Exam (per Admitting): PHYSICAL EXAMINATION: VITAL SIGNS: Blood pressure was noted to be 138/75, pulse rate 72, RR 17, T 37 sats 97% on room air. GENERAL: Noted to be obese, slightly anxious, no respiratory distress. SKIN: Pallor, warm. HEENT: alopecia. Pale conjunctivae. No ptosis. Dry mucosa. NECK: Short, supple. CHEST: Decreased effort. No tenderness. HEART: RRR, no murmur. ABDOMEN: Some distention, nontender EXTREMITIES: Minimal LE edema, no tenderness. no gross deformity ____ NEUROLOGIC: Coherent, no gross focality. Hospital Course Chest Pain: R/O ACS Troponin: X 2:Negative EKG:NSR, 1st degree AV block CXR:Minimal atelectasis left base. Otherwise negative chest. CTA:No evidence for pulmonary embolus. The lungs are clear. Mild peribronchial thickening. TSH normal Continue Aspirin Negative stress test. Hypertension: Stable continue lisinopril Chronic anemia: hemoglobin at baseline Anxiety disorder: Lorazepam PRN Past tobacco abuse KINSEY continue CPAP Pulmonary Nodules: Advised to follow up with his Head Bookkeeper as outpatient DVT Px: Lovenox SQ Code Status: Full code Disposition: Expect to discharge home when stable Follow up with your PCP on July 11, 2017 at 10:45AM Follow up with your Digital Printer on July at 2:45pm Seek immediate medical attention if your symptoms reoccur or worsen Total time spent on discharge = This includes examination of the patient, discharge planning, medication reconciliation, and communication with other providers. Discharge Instructions Discharge Instructions Date of Service Jul 06, 2017. Admission Reason for Admission: Chest Pain Discharge Discharge Diagnosis / Problem: Chest Pain Discharge Goals Goal(s): Decrease discomfort, Improve function Activity Recommendations Activity Limitations: resume your previous activity Exercise/Sports Limitations: as tolerated . Instructions / Follow-Up Instructions / Follow-Up Follow up with your PCP on July 11, 2017 at 10:45AM Follow up with your Digital Printer on July at 2:45pm Seek immediate medical attention if your symptoms reoccur or worsen Current Hospital Diet Patient's current hospital diet: AHA Diet (Heart Healthy) Discharge Diet Recommended Diet: AHA Diet (Heart Healthy) Pending Studies Studies pending at discharge: no Medical Emergencies . Who to Call and When: Medical Emergencies: If at any time you feel your situation is an emergency, please call 911 immediately. . Non-Emergent Contact Non-Emergency issues call your: Primary Care Provider, Digital Printer Call Non-Emergent contact if: you have a fever, your pain is not controlled, your pain is worsening, your pain is unusual for you, your pain is concerning you, you have any medication questions Seek immediate medical attention if your symptoms reoccur or worsen . . "Provider Documentation" section prepared by Jeremy Donato. . <Electronically signed by Jeremy Donato MD> Signed: 07/06/17 [id number] Signed: The status of this report is Signed * If report status is Draft, the document has not been finalized by the responsible provider.
== END 2017-07-06 16:25 | disposition home or self-care (01) ==
LOC: C.EDB 22:05 → C.EDINP 07-06 00:36 → ENRESERV 07-06 08:27 → C.MED 07-06 10:47
PROVIDERS: ADMIT Internal Medicine; ATTEND Internal Medicine
DX: R07.9 Chest pain, unspecified (principal); I10 Essential (primary) hypertension; G47.33 Obstructive sleep apnea (adult) (pediatric); D64.9 Anemia, unspecified; E78.5 Hyperlipidemia, unspecified; E66.9 Obesity, unspecified; Z68.38 Body mass index [BMI] 38.0-38.9, adult; Z79.82 Long term (current) use of aspirin; Z87.891 Personal history of nicotine dependence; Z99.89 Dependence on other enabling machines and devices; Z82.49 Family history of ischemic heart disease and other diseases of the circulatory system; Z82.3 Family history of stroke; Z80.0 Family history of malignant neoplasm of digestive organs

== ENCOUNTER 2018-12-25 07:54 | Inpatient (IN) ==
--- NOTE | 2018-11-05 14:30 | PAT Medication Instructions ---
Medication Instructions Date of Service November 05, 2018 Continue as directed Fish Oil 1 dose PO QAM aspirin 81 mg PO QAM atorvastatin 40 mg PO HS cholecalciferol (vitamin D3) [Vitamin D3] 1,000 unit PO QAM lisinopril-hydrochlorothiazide 1 tab PO QAM lorazepam 1 mg PO HS PRN meclizine 25 mg PO DAILY PRN melatonin 10 mg PO HS PRN omeprazole 20 mg PO BID STOP taking 2 weeks before surgery (or as soon as possible if surgery is within 2 weeks) Fish Oil 1 dose PO QAM DO NOT take the morning of surgery cholecalciferol (vitamin D3) [Vitamin D3] 1,000 unit PO QAM lisinopril-hydrochlorothiazide 1 tab PO QAM Take morning of surgery With a small sip of water, OTHERWISE NOTHING TO EAT OR DRINK AFTER MIDNIGHT: aspirin 81 mg PO QAM meclizine 25 mg PO DAILY PRN (if needed) omeprazole 20 mg PO BID Take evening before surgery atorvastatin 40 mg PO HS lorazepam 1 mg PO HS PRN meclizine 25 mg PO DAILY PRN (if needed) melatonin 10 mg PO HS PRN (if needed) omeprazole 20 mg PO BID Other Notes If you have any questions please call us at [phone] or [phone] or [phone] or [phone]
--- NOTE | 2018-11-06 12:52 | Anesthesiology Consultation ---
Date of Service November 06, 2018 Assessment & Plan (1) Encounter for pre-operative examination: - Preop EKG done 11/06/18 still unconfirmed at time of review. Will need to review confirmed EKG AM DOS. - ASA: OK to continue ASA perioperatively per surgeon. Chart Review Chart Review: Acceptable Risk for Surgery and Patient seen in Pre Admission Testing Teaching & Discussion Pre-Anesthesia Teaching/Discussion Notes: Instructed NPO after midnight before surgery,except medications with 15 cc of water. Medication instructions provided according to the PAT guidelines. History Surgery Operation Date: 12/25/18 07:00 Proposed Procedures p Left Knee Arthroplasty Uni Compartment versus - Rafael Keating MD s Total Knee Replacement - Rafael Keating MD Height/Weight Height: 5 ft 10 in Weight: 120.2 kg Allergies Allergy/AdvReac Type Severity Reaction Status Date / Time No Known Allergies Allergy Unknown Verified 11/01/18 14:38 Medications Home Medications Medication Instructions Recorded Confirmed Last Taken Fish Oil 1 dose PO QAM 11/01/18 11/01/18 Unknown aspirin 81 mg PO QAM 11/01/18 11/01/18 Unknown atorvastatin 40 mg PO HS 11/01/18 11/01/18 Unknown cholecalciferol (vitamin D3) 1,000 unit PO QAM 11/01/18 11/01/18 Unknown [Vitamin D3] lisinopril-hydrochlorothiazide 1 tab PO QAM 11/01/18 11/01/18 Unknown lorazepam 1 mg PO HS PRN 11/01/18 11/01/18 Unknown meclizine 25 mg PO DAILY PRN 11/01/18 11/01/18 Unknown melatonin 10 mg PO HS PRN 11/01/18 11/01/18 Unknown omeprazole 20 mg PO BID 11/01/18 11/01/18 Unknown Past Medical History Medical History Anxiety Degenerative disc disease Fatty liver GERD (gastroesophageal reflux disease) OCCASIONAL HTN (hypertension) Hard of hearing RIGHT EAR Hyperlipidemia Insomnia Obesity Osteoarthritis Sleep apnea CPAP Vertigo Exercise / Class Metabolic Activity III < 4 Walking/Shop/Light housework Past Family History Family History Brother Family history of diabetes mellitus Mother Family history of diabetes mellitus Brother Family hx of colon cancer Past Surgical History Surgical History History of arthroscopy of right knee History of cardiac cath 1994= NO STENTS History of carpal tunnel release LT History of colonoscopy W/ POLYPECTOMY History of esophagogastroduodenoscopy (EGD) History of inguinal hernia repair RT History of repair of rotator cuff RT History of tooth extraction History of umbilical hernia repair Past Anesthesia History No Hx of Anesthesia Complications and No Family Hx of Anesthesia Complications History of PONV No Hx of PONV and No Hx of Motion Sickness Social History Smoking Status: Never smoker Do You Dip or Chew Tobacco: No (QUIT ) Hx Alcohol Use: Yes alcohol intake frequency: holidays/special occasions only Hx Substance Use: No substance use type: does not use Review of Systems Occasional reflux. Patient denies chest pain, shortness of breath, cough, wheezing, palpitations. Physical Exam Vital Signs VITALS BP 110/64 P 68 TEMP 98.2 SP02 97%RA RESP 18 PHYSICAL Full neck and c-spine range of motion. Full TMJ range of motion. TMD 3 finger breaths Mallampati Score 2 Dentition: upper front "glued" in permanent teeth, several missing sides/molars Lungs: clear throughout to auscultation Cardiac: regular rate and rhythm, no murmurs noted, distant heart sounds Spine: normal Carotid arteries: negative bruit Extremities: no edema Short, thick neck Testing Laboratory Results 11/06/18 13:10 11/06/18 13:10 PT 10.1 Seconds (9.0-12.0) 11/06/18 13:10 INR 1.0 (0.9-1.1) 11/06/18 13:10 APTT 25.6 Seconds (21.0-31.0) 11/06/18 13:10 Blood Type O Positive 11/06/18 13:10 Antibody Screen NEGATIVE 11/06/18 13:10 Electrocardiogram Date: 11/06/18 SR with first degree AVB at 63bpm. Otherwise "normal" EKG (unconfirmed). Chest X-Ray Date: 11/07/18 Findings: + NAD Stress Test Date: 07/06/17 Type: exercise (+ DSE) Nonischemic exercise stress test. No arrhythmias. Mild cLVH. EF 65-70%. Grade II DD. Moderate AV sclerosis. Mild LAE. Moderate annular calcifications. 98% MPHR.
--- NOTE | 2018-11-06 13:55 | XRay Report ---
XR chest Pre-admission PA/Lat HISTORY: Preop. COMPARISON: Chest CTA 07/06/2017. FINDINGS: The lungs are clear. Cardiac silhouette is normal in size. No pleural effusions. No pneumot horax. IMPRESSION: No acute process. Electronically signed by: Sudeep Livingston M.D. 11/06/2018 1:54 PM
[2018-11-06 15:37] LABS: Basophils # (auto) 0.02 K/uL (0-0.2); Basophils % (auto) 0.3 %; Eosinophils # (auto) 0.18 K/uL (0-0.5); Eosinophils % (auto) 2.9 %; Hematocrit (blood only) 39.6 % (42-52); Hemoglobin 13.8 g/dL (14.0-18.0); Immature Granulocytes # (auto) 0.01 K/uL (0.00-0.02); Immature Granulocytes % (auto) 0.2 %; Lymphocytes # (auto) 2.32 K/uL (1.2-3.4); Lymphocytes % (auto) 37.7 %; Mean Corpuscular Hgb Conc 34.8 g/dL (32-36); Mean Corpuscular Volume 91.7 fL (80-100); Mean Platelet Volume 9.4 fL (7.4-10.4); Monocytes # (auto) 0.35 K/uL (0.11-0.59); Monocytes % (auto) 5.7 %; Neutrophils # (auto) 3.27 K/uL (1.4-6.5); Neutrophils % (auto) 53.2 %; Platelet Count 251 K/uL (130-400); RDW Coefficient of Variation 12.7 % (11.5-14.5); RDW Standard Deviation 42.6 fL (36.4-46.3); Red Blood Count 4.32 M/uL (4.7-6.1); White Blood Count 6.15 K/uL (4.8-10.8)
[2018-11-06 15:46] LABS: BUN Creatinine Ratio 21.3 (10-20); Calcium 9.2 mg/dl (8.5-10.1); Creatinine Clr Calc Pharmacy 66.2 ml/min; Est GFR (African American) 61.2; Est GFR (Non-African American) 52.8
[2018-11-06 15:49] LABS: Partial Thromboplastin Ratio 0.9; Partial Thromboplastin Time 25.6 Seconds (21.0-31.0); Prothrombin Time 10.1 Seconds (9.0-12.0)
--- NOTE | 2018-12-22 19:44 | History and Physical Report ---
DATE OF ADMISSION: 12/25/2018 CHIEF COMPLAINT: Bilateral knee pain and discomfort, left side greater than the right. HISTORY OF PRESENT ILLNESS: A 68-year-old gentleman who presents for surgical treatment of his left knee. He has a long history of bilateral knee pain and discomfort, left side a bit worse than the right. We have been treating with injections over the past several years that has become less successful over time. Pain is mostly on the medial side of his knee. He has a limited walking tolerance. The more he walks, the more it hurts. He now would like to proceed with surgical treatment. PAST MEDICAL HISTORY: 1. Hypertension. 2. Elevated cholesterol. 3. Sleep apnea with CPAP machine. 4. Anxiety/depression. 5. Spinal stenosis. 6. Obesity, BMI of 38. 7. Gastroesophageal reflux disease. PAST SURGICAL HISTORY: 1. Herniorrhaphy. 2. Left carpal tunnel release. 3. Right rotator cuff repair. 4. Right knee arthroscopy and microfracture in 2009. ALLERGIES: None. CURRENT MEDICATIONS: 1. Atorvastatin. 2. Lisinopril. 3. Omeprazole. 4. Lorazepam. 5. Low dose aspirin. 6. Fish oil. 7. Vitamin D. 8. Melatonin. SOCIAL HISTORY: A 68-year-old male. He is from [place]. Does not smoke. One drink per week. FAMILY HISTORY: Noncontributory. REVIEW OF HISTORY: Negative for diabetes, neurologic problems, vascular problems, or bleeding disorders. No chest pain or shortness of breath. No history of DVT or PE. PHYSICAL EXAMINATION: GENERAL: Shows a pleasant, middle-aged male. He looks to be in reasonably good health. HEENT: Benign. NECK: Supple, no lymphadenopathy. LUNGS: Clear to auscultation. HEART: Regular rate and rhythm. ABDOMEN: Soft, nontender, nondistended. EXTREMITIES: Grossly neurovascularly intact except as follows: Examination of both knees reveals the patient ambulates independently. He has got varus alignment to both knees. Examination of the left knee reveals tenderness over the medial joint line. Small knee effusion. Range of motion 0-125. No instability. ACL seems to be working appropriately. Examination of the right knee reveals varus alignment. He has got bony hypertrophy medially. Small knee effusion. Range of motion 5-125. No instability. X-RAYS: X-rays of both knees were reviewed. X-rays of left knee revealed fairly advanced medial compartment DJD. He has got complete loss of his medial joint space. The rest of his knee looks pretty good. Examination of the right knee reveals moderate tricompartment disease. He has got medial compartment narrowing. He has got osteophytes of the medial femoral condyle, subchondral sclerosis and chondrocalcinosis. ASSESSMENT: A 68-year-old male with advanced bilateral knee degenerative joint disease, left side more symptomatic than the right. He has been through extensive conservative treatment. He would like to proceed with left knee surgery. PLAN: We talked about treatment options. We are going to proceed with a left partial knee replacement. If we get in there and his knee is too advanced, we will do a full knee replacement. We are likely going to inject his right knee at the same time. The risks and benefits of these procedures were explained to the patient including but not limited to DVT, PE, , infection, neurological injury, vascular injury, bleeding problem, pain, limited range of motion, stiffness, failure to relieve symptoms, incomplete relief of symptoms, need for further surgery in the future, fracture, leg length inequality, nerve palsy, etc. The patient understands and desires to proceed. Informed consent was obtained. We did talk about bringing his CPAP to the hospital and holding lisinopril the morning of surgery. He is planning to be discharged home using [facility] home health program.
[~2018-12-25 07:54] MED LIST changes: +ACETAMINOPHEN 500 MG TAB PO SCH; -ASPI81TA28 PO; -ATV/1 PO; +BUPIVACAINE 0.25% 30 ML VIAL ONE; +BUPIVACAINE 0.5 % 5 MG/1 ML PF 10ML VIAL ONE; +BUPIVACAINE LIPOSOME/PF 266 MG, BUPIVACAINE/EPINEPHRINE 50 ML, SODIUM CHLORIDE 0.9% 30 ... INFIL SCH; +CEFAZOLIN 3000MG 72.5 ML IV SCH; -CEPH500C2 PO; -CHOL100027 PO; +FAMOTIDINE 20 MG TAB PO SCH; +GABAPENTIN 300 MG CAP PO SCH; +LACTATED RINGER'S 1,000 ML IV SCH; -LPT40 PO; +LR 500ML BOLUS, THEN 15ML/HR IV SCH; -LSN/10125 PO; -MELA1TAB54 PO; +METOCLOPRAMIDE HCL 10 MG TABLET PO SCH; -OMEG340C PO; -PRLSR20 PO; +TRANEXAMIC ACID 1,000 MG **IV Intra-op IV SCH
--- NOTE | 2018-12-25 08:27 | History & Physical Bridge Note ---
Date of Service December 25, 2018 History & Physical Bridge Note I have examined the patient, reviewed the History & Physical and in the interval since the performance of the History & Physical I have noted the following changes of clinical significance: no changes noted
[2018-12-25] MEDS ORDERED: PROPOFOL IV EMULSION 10 MG/ML 20 ML VIAL IV ONE ×2 (09:11→11:38)
[2018-12-25] MEDS ORDERED: fentaNYL citrate 100 MCG/2 ML VIAL ONE (09:11)
[2018-12-25] MEDS ORDERED: LIDOCAINE HCL 2% 2 ML VIAL/AMP(20MG/ML) INFIL ONE (09:11)
[2018-12-25] MEDS ORDERED: MIDAZOLAM HCL 1 MG/ML 2ML VIAL ONE ×2 (09:12→11:09)
[2018-12-25] MEDS ORDERED: BETAMETH SOD PHOS/ACETATE IA 6 MG/ML IM SCH (10:00)
[2018-12-25] MEDS ORDERED: BUPIVACAINE LIPOSOME 1.3% 266 MG/20 ML VIAL ONE (10:43)
[2018-12-25] MEDS ORDERED: BACITRACIN INJ 50,000 UNIT VIAL ONE (10:43)
[2018-12-25] MEDS ORDERED: SODIUM CHLORIDE 0.9% PF 50 ML VIAL ONE (10:43)
[2018-12-25] MEDS ORDERED: BUPIVACAINE 0.25% 30 ML VIAL ONE (10:44)
[2018-12-25] MEDS ORDERED: EPINEPHrine INJ 1 MG/ML AMP ONE (10:44)
[2018-12-25] MEDS ORDERED: BUPIVACAINE 0.5 % 5 MG/1 ML MPF 30ML VIAL ONE (10:45)
--- NOTE | 2018-12-25 10:53 | History & Physical Bridge Note ---
Date of Service December 25, 2018 History & Physical Bridge Note I have examined the patient, reviewed the History & Physical and in the interval since the performance of the History & Physical I have noted the following changes of clinical significance: Patient wants knee injection on right side during surgery. We will provide Celestone/Marcaine knee injection to right knee in OR.
[2018-12-25] MEDS ORDERED: fentaNYL citrate 100 MCG/2 ML VIAL IV PRN (11:21)
[2018-12-25] MEDS ORDERED: ePHEDrine sulfate 50 MG/ML AMP IV PRN (11:21)
[2018-12-25] MEDS ORDERED: ONDANSETRON INJ 2 MG/ML 2 ML VIAL IV PRN ×2 (11:21→14:48)
[2018-12-25] MEDS ORDERED: ATROPINE SULFATE 0.1 MG/ML 10ML SYR IV PRN (11:21)
--- NOTE | 2018-12-25 13:00 | Post Operative Brief Note ---
PG Immediate Post Op with CF Date of Surgery December 25, 2018 Pre & Post Diagnosis Operation Date: 12/25/18 10:40 Pre-Op Diagnosis: Bilateral Knee Advanced Degenerative Joint Disease Post-Op Diagnosis: Bilateral Knee Advanced Degenerative Joint Disease Procedure Operation Date: 12/25/18 10:40 Actual Procedures p Left Knee Arthroplasty Uni Compartmental(Left) - Rafael Keating MD s Right Knee Injection(Right) - Rafael Keating MD Surgeon Rafael Keating MD Warehouse Packaging Supervisor Astrid, PAC Estimated Blood Loss 25 Findings Consistent with Post-Op Diagnosis Specimens Specimen Description: A. Left Knee Bone and Tissue Drains Anderson Catheter (16 Tun[place]ian Anderson catheter inserted by Lizandro Duncan PA-C without difficulty. Clear yellow urine obtained, Anesthesia to monitor) Anesthesia Type Spinal MAC Complications none Disposition Accompanied Patient To Recovery: No Disposition: Recovery Room
--- NOTE | 2018-12-25 13:25 | XRay Report ---
XR knee LT 2V routine CLINICAL HISTORY: Surgical Post Op COMPARISON: 01/06/2009 DISCUSSION: Anatomic alignment post medial joint compartment hemiarthroplasty. Mild degenerative changes lateral joint compartment. Expected postoperative soft tissue change. IMPRESSION: 1. Anatomic alignment post medial joint compartment hemiarthroplasty. The above report was generated using voice recognition software. It may contain grammatical, syntax or spelling errors. Electronically signed by: Cj Garcia M.D. 12/25/2018 1:23 PM
--- NOTE | 2018-12-25 13:30 | Operative Report ---
DATE OF OPERATION: 12/25/2018 SURGEON: Rafael Keating MD TRANSMISSION SYSTEMS OPERATOR: BLU Campbell PREOPERATIVE DIAGNOSIS: Left knee medial compartment degenerative joint disease. Right Knee DJD POSTOPERATIVE DIAGNOSIS: Left knee medial compartment degenerative joint disease. Right Knee DJD PROCEDURE PERFORMED: Left Biomet [place] mobile bearing partial knee replacement. Right Knee Injection of Celestone/Marcain. COMPLICATIONS: None. ESTIMATED BLOOD LOSS: 25 mL. FLUID REPLACEMENT: 900 mL crystalloid fluid replacement. TOURNIQUET TIME: 69 minutes at 300 mmHg. ANESTHESIA: Spinal with adductor canal block. DRAINS: None. SPECIMENS: Left knee sent for pathology. OPERATIVE INDICATIONS: The patient is a 68-year-old gentleman who has a long history of bilateral knee pain and discomfort. He has been through extensive conservative treatment over the years. This became less successful and his left knee was bothered more than the right. He had more tricompartment disease in the right, but fairly isolated medial compartment disease on the left with medial side symptoms. He failed conservative care and elected to proceed with left partial knee replacement. Patient has tricompartment DJD in right knee and desired knee injection while spinal in effect. OPERATIVE FINDINGS: Operative findings were advanced left knee DJD. He had grade 4 [id number] disease of the medial femoral condyle and medial tibial plateau. He had some spotty grade 3 changes of the trochlea. The patella was pretty well preserved. The lateral compartment was well preserved. He did have a fairly large knee joint effusion with slight varus alignment to his knee. OPERATIVE IMPLANTS: Operative implants consisted of: 1. A Biomet [place] size large medial femoral component. 2. A Biomet [place] left medial size C tibial tray. 3. A 7 mm mobile-bearing insert. OPERATIVE PROCEDURE: The patient was taken to the operating room, identified and placed on the operating table in supine position. All contact areas were appropriately padded. IV antibiotics provided by anesthesia team. A spinal anesthetic and adductor canal block had been provided in the holding area. Anderson catheter was placed in sterile fashion. The right knee was prepped with alcohol and 2cc of Celestone and 8 cc of .5% Marcaine were injected into the left knee in a sterile fashion. A left thigh tourniquet was then placed. The left lower extremity was then prepped and draped in the usual sterile fashion. Left leg was elevated and exsanguinated with an Esmarch and tourniquet was placed at 300 mmHg. An anterior approach to the left knee was then performed through a longitudinal incision centered over the patella. Sharp dissection was carried through subcutaneous tissues down to the level of the extensor mechanism. A medial parapatellar arthrotomy incision was made. Some subperiosteal dissection was carried out medially. Great care was taken to protect the MCL from injury. The fat pad resected from beneath the patellar tendon. I then examined the lateral compartment and it was well preserved. He did have some mild to at best moderate patellofemoral changes particularly in the trochlea and I elected to accept these as he did not appear to have any symptoms from this. The intercondylar notch osteophyte was removed. The femur was then sized to a size large. The femoral spoon was placed. It was attached to the external tibial alignment jig with a 4G clamp. The tibial guide was then pinned in place. The proximal tibial cut was made. I did take a fairly large piece of the tibia. The tibia was then sized to a size C. Attention was then drawn to the femur. The distal femur was entered with a sharp drill bit. Intramedullary khalida was placed. The femoral template was then attached to the IM guide and the holes were drilled for the femoral component. Posterior cutting guide was placed and the posterior cut was made. The 0 spigot was used and the distal femur was milled. The medial meniscus was excised. I then trialed the knee and the 7 feeler gauge fit good in flexion and 6 in extension. We therefore removed the implants. I placed a 1 spigot and milled the distal femur. We did get down to bone with this. We then irrigated the wound extensively. We then placed the femoral preparation guide and the posterior osteophyte was removed as well as the milling for the anterior portion of the femoral component. The cement drill was then used to create holes in the distal femur for cement interdigitation. The tibial tray was then pinned and then a saw was used to create the keel for the tibial tray. I then trialed the knee and the 7 mm insert fit appropriately in flexion and extension. We elected to place these implants. All trial implants were removed. The wound was irrigated with copious amounts of pulsatile lavage solution. I injected with 100 mL a combination of 20 mL of Exparel, 30 mL of normal saline, 50 mL of 0.25% Marcaine with epinephrine. A single batch of [place] G cement was mixed. A left Biomet [place] size C medial tibial tray was then cemented in position followed by a large femoral component. I then placed the 7 feeler gauge. All extraneous cement was removed. The knee was brought down into 30 degrees short of full extension until the cement hardened. Once the cement was then hardened, a final cement check was then performed. I then trialed the knee with a 7 insert fit most appropriately. We placed a permanent 7 mm insert. The knee was once again irrigated. The tourniquet was then let down for a tourniquet time of 69 minutes. Hemostasis was assured with use of electrocautery. Extensor mechanism was then closed with combination of #1 PDS suture and #1 Vicryl suture in [id number] fashion. Extensor mechanism was checked and found to be intact. The subcutaneous tissue was then closed with #2 Dexon suture in a buried interrupted fashion. Skin was closed with skin flakito. Leg was then cleaned, dried and a sterile dressing of Xeroform, 4 x 4, sterile ABD pad and foam tape was applied. The patient then transferred to the recovery room in stable condition. The patient tolerated the procedure well with no complication. All needle and sponge counts were correct at the end of the operation. I attest to the content of the Intraoperative Record and any orders documented therein. Any exceptions are noted below. DIANA
--- NOTE | 2018-12-25 13:32 | Operative Report ---
DATE OF OPERATION: 12/25/2018 ADDENDUM The patient has right knee arthritis as well. He desired a right knee injection, so we provided a right knee injection to him at that time he was under anesthesia. Before the procedure was started, the right knee was prepped with alcohol. I then injected the right knee with 2 mL of Celestone and 8 mL of Marcaine. He tolerated the procedure well. A Band-Aid was placed and a NEDA stocking was placed followed by his SCD and then the left partial knee replacement procedure was performed. I attest to the content of the Intraoperative Record and any orders documented therein. Any exception s are noted below.
--- NOTE | 2018-12-25 14:16 | Anesthesiology Progress Note ---
Date of Service December 25, 2018 Anesthesia Post Procedure Vital Signs Vital Signs: Temp Pulse Pulse Resp BP Pulse Ox 12/25/18 14:10 36.8 C 73 14 133/68 98 12/25/18 14:00 36.8 C 66 15 135/62 97 12/25/18 13:50 36.8 C 66 16 129/68 98 12/25/18 13:40 36.6 C 67 14 129/68 98 12/25/18 13:30 36.6 C 71 14 138/65 99 12/25/18 13:20 36.6 C 65 60 16 136/65 98 12/25/18 13:10 36.6 C 75 60 14 134/67 96 12/25/18 13:03 36.6 C 75 18 113/61 96 12/25/18 08:29 36.6 C 67 18 155/69 H 96 Transfer of Care Handoff Completed per policy Notes Mental Status: alert / awake / arousable and participated in evaluation Nausea / Vomiting: adequately controlled Pain: adequately controlled Airway Patency, RR, SpO2: stable & adequate BP & HR: stable & adequate Hydration State: stable & adequate Neuraxial Anesthesia: was administered and sensory block is resolving Anesthetic Complications: no major complications apparent and Pt Satisfied with anesthetic care
[2018-12-25] MEDS ORDERED: MECLIZINE HCL 25 MG TAB PO PRN (14:48)
[2018-12-25] MEDS ORDERED: NO NSAIDS SCH (14:48)
[2018-12-25] MEDS ORDERED: SODIUM CHLORIDE 0.9% 1000ML 1,000 ML IV SCH (14:48)
[2018-12-25] MEDS ORDERED: OXYCODONE HCL IR 5 MG TAB (IMMEDIATE RELEASE) PO PRN (14:48)
[2018-12-25] MEDS ORDERED: ALUMINUM/MAGNESIUM SUSP 30 ML UDC PO PRN (14:48)
[2018-12-25] MEDS ORDERED: TAMSULOSIN HCL 0.4 MG CAP PO PRN (14:48)
[2018-12-25] MEDS ORDERED: NALOXONE HCL 0.4 MG/1 ML VIAL/CARP IV PRN (14:48)
[2018-12-25] MEDS ORDERED: HYDROmorphone INJ 0.5 MG/0.5 ML SYR IV PRN (14:48)
[2018-12-25] MEDS ORDERED: BISACODYL 10 MG SUPP PR PRN (14:48)
[2018-12-25] MEDS ORDERED: MAGNESIUM HYDROXIDE SUSP 30 ML UDC PO PRN (14:48)
[2018-12-25] MEDS ORDERED: LORazepam 1 MG TAB PO PRN (14:48)
[2018-12-25] MEDS ORDERED: METOCLOPRAMIDE HCL INJ 5 MG/ML 2 ML VIAL IV PRN (14:48)
[2018-12-25] MEDS: ACETAMINOPHEN 500 MG TAB PO SCH ×2 (15:27→21:02)
[2018-12-25] MEDS: ASCORBIC ACID 500 MG TAB PO SCH (16:59)
[2018-12-25] MEDS: FERROUS GLUCONATE 324 MG TAB PO SCH (16:59)
[2018-12-25] MEDS: CEFAZOLIN 2000MG 2,000 MG/15 ML SYR IV SCH (17:00)
[2018-12-25] MEDS ORDERED: TRANEXAMIC ACID 1,000 MG in 0.9 % SODIUM CHLORIDE 100 ML IV SCH (19:00)
[2018-12-25] MEDS: PANTOprazole 40 MG TAB PO SCH (20:03)
[2018-12-25] MEDS: DOCUSATE SODIUM 100 MG CAP PO SCH (20:03)
[2018-12-25] MEDS: ASPIRIN 81 MG ECTAB PO SCH (20:03)
[2018-12-25] MEDS: TAPENTADOL HCL ER 50 MG TABCR PO SCH (20:08)
[2018-12-25] MEDS ORDERED: SENNA 8.6 MG TAB PO SCH (21:00)
[2018-12-25] MEDS ORDERED: ATORVASTATIN 40 MG TAB PO SCH (21:00)
[2018-12-26] MEDS: CEFAZOLIN 2000MG 2,000 MG/15 ML SYR IV SCH (01:53)
[2018-12-26] MEDS: ACETAMINOPHEN 500 MG TAB PO SCH (05:21)
[2018-12-26 06:01] LABS: Hematocrit (blood only) 37.2 % (42-52); Hemoglobin 13.2 g/dL (14.0-18.0); Mean Corpuscular Hgb Conc 35.5 g/dL (32-36); Mean Corpuscular Volume 91.2 fL (80-100); Mean Platelet Volume 9.1 fL (7.4-10.4); Platelet Count 259 K/uL (130-400); RDW Coefficient of Variation 13.2 % (11.5-14.5); RDW Standard Deviation 43.7 fL (36.4-46.3); Red Blood Count 4.08 M/uL (4.7-6.1); White Blood Count 9.08 K/uL (4.8-10.8)
[2018-12-26 06:27] LABS: BUN Creatinine Ratio 18.4 (10-20); Calcium 8.7 mg/dl (8.5-10.1); Creatinine Clr Calc Pharmacy 70.6 ml/min; Est GFR (African American) 65.9; Est GFR (Non-African American) 56.9
--- NOTE | 2018-12-26 08:28 | Anesthesiology Progress Note ---
Date of Service December 26, 2018 Anesthesia Post Procedure Vital Signs Vital Signs: Temp Pulse Pulse Pulse Resp BP Pulse Ox 12/26/18 07:11 36.5 C 80 16 161/78 H 96 12/26/18 03:43 36.7 C 87 18 156/89 H 95 12/25/18 23:10 36.5 C 90 20 161/66 H 96 12/25/18 19:18 36.4 C L 87 16 166/78 H 95 12/25/18 16:36 36.4 C L 80 16 157/73 H 94 12/25/18 15:36 36.4 C L 83 16 143/74 H 93 12/25/18 14:59 36.5 C 75 16 124/66 93 12/25/18 14:49 36.8 C 76 16 130/75 12/25/18 14:10 36.8 C 73 14 133/68 98 12/25/18 14:00 36.8 C 66 15 135/62 97 12/25/18 13:50 36.8 C 66 16 129/68 98 12/25/18 13:40 36.6 C 67 14 129/68 98 12/25/18 13:30 36.6 C 71 14 138/65 99 12/25/18 13:20 36.6 C 65 60 16 136/65 98 12/25/18 13:10 36.6 C 75 60 14 134/67 96 12/25/18 13:03 36.6 C 75 18 113/61 96 12/25/18 08:29 36.6 C 67 18 155/69 H 96 Pain Intensity Left Knee: Pain Intensity: 3 Notes Mental Status: alert / awake / arousable and participated in evaluation Patient Amnestic to Procedure: Yes Nausea / Vomiting: adequately controlled Pain: adequately controlled Airway Patency, RR, SpO2: stable & adequate BP & HR: stable & adequate Hydration State: stable & adequate Neuraxial Anesthesia: was administered and sensory block resolved Anesthetic Complications: no major complications apparent and Pt Satisfied with anesthetic care
--- NOTE | 2018-12-26 08:30 | Progress Note ---
DATE: 12/26/2018 SUBJECTIVE: A 68-year-old gentleman postop day 1 from a left partial knee replacement and injection to his right knee. He is doing well. Pain is controlled. He did get up and walking around some yesterday and did pretty well. Denies any chest pain or shortness of breath. Not feeling dizzy or lightheaded. OBJECTIVE: VITAL SIGNS: Temperature 36.5. Vital signs stable. GENERAL: Physical examination shows a pleasant, middle-aged male. He is sitting up and eating his breakfast. EXTREMITIES: Examination of both legs reveals the dressing to be clean and dry, and intact. He does have just a little bit of bloody drainage in the left knee. His calves are soft and supple. He is neurologically intact. He can dorsiflex and plantar flex his feet on both sides. LABORATORY DATA: Hemoglobin 13.2. Hematocrit 37.2. Electrolytes are stable. ASSESSMENT: A 68-year-old gentleman postop day 1 from a left partial knee replacement and injection to his right knee, doing well. His pain is controlled. He is neurologically intact. PLAN: 1. DVT prophylaxis including thigh-high TEDs, SCDs, and aspirin twice a day. 2. PT/OT. Weight bear as tolerated. Left total knee protocol. 3. Pain control, doing well with current pain regimen. 4. Disposition: Plan to discharge to home with some home health later today if pain controlled and does okay in therapy.
[2018-12-26] MEDS: DOCUSATE SODIUM 100 MG CAP PO SCH (08:50)
[2018-12-26] MEDS: FERROUS GLUCONATE 324 MG TAB PO SCH (08:50)
[2018-12-26] MEDS: ASPIRIN 81 MG ECTAB PO SCH (08:50)
[2018-12-26] MEDS: PANTOprazole 40 MG TAB PO SCH (08:50)
[2018-12-26] MEDS: ASCORBIC ACID 500 MG TAB PO SCH (08:50)
[2018-12-26] MEDS: TAPENTADOL HCL ER 50 MG TABCR PO SCH (08:54)
[2018-12-26] MEDS ORDERED: LISINOPRIL/HCTZ 10/12.5MG TAB PO SCH (09:00)
[2018-12-26] MEDS ORDERED: CHOLECALCIFEROL 1,000 UNITS TAB PO SCH (09:00)
[2018-12-26] MEDS ORDERED: MULTIVITAMIN TAB PO SCH (09:00)
--- NOTE | 2018-12-31 22:17 | Discharge Summary ---
ADMITTING PHYSICIAN AND SURGEON: Rafael Keating MD ADMITTING DIAGNOSES: 1. Left knee medial compartment degenerative joint disease. 2. Right knee degenerative joint disease. PROCEDURE PERFORMED: 1. Left partial knee replacement. 2. Right knee injection. SECONDARY DIAGNOSES: Hypertension, elevated cholesterol, sleep apnea, anxiety, depression, spinal stenosis, obesity, gastroesophageal reflux disease. CONSULTATIONS: None obtained. HISTORY AND PHYSICAL EXAMINATION: Well documented in the patient's chart. HOSPITAL COURSE: The patient was admitted on 12/25/2018, underwent partial knee replacement as well as a right knee injection, tolerated the procedure well and there were no complications. He was transferred to the PACU postoperatively and later to the orthopedic floor for further care. He was given Ancef for antibiotic prophylaxis, NEDA stockings, SCDs and aspirin for DVT prophylaxis. Hemoglobin, hematocrit and vital signs were monitored during his hospital stay and remained stable. He did not require any blood transfusions. There were no complications. By postoperative day 1, he was tolerating a regular diet. Pain was controlled with oral pain medicine. He was participating in physical therapy. Postop day 1, he was discharged home, set up with home health services, given printed discharge instructions as well as new prescriptions for Extra Strength Tylenol, aspirin, and oxycodone. Continue his home medicines. Continue physical therapy, weightbearing as tolerated, NEDA stockings. Follow up in approximately 2 weeks postop or sooner if there are any problems or concerns.
== END 2018-12-26 14:02 | disposition home health service (06) | DRG 470 ==
LOC: ASU 07:54 → 3E 13:04

== ENCOUNTER 2022-02-03 22:21 | Inpatient (IN) ==
[2022-02-03] MEDS ORDERED: SODIUM CHLORIDE 0.9% 1000ML 500 ML IV ONE (23:14)
--- NOTE | 2022-02-03 23:14 | Emergency Department Note ---
Impression & Plan Lower gastrointestinal hemorrhage Admission ED Provider Note HPI: The patient is a 71-year-old male with history of atrial fibrillation, on Coumadin, presents to the emergency department tonight with 4 episodes of rectal bleeding that he has been experiencing since around 7 PM this evening status post colonoscopy that was performed at [facility] earlier today. Patient states that shortly prior to my assessment here in the ED he did have another episode of bleeding per rectum. Patient denies any abdominal pain, denies any vomiting, on arrival here to the ED the patient is hemodynamically stable, he is in no acute distress. ROS: -GI: Rectal bleeding status post colonoscopy this morning *10 point review systems was conducted and is otherwise negative unless stated above *Outpatient medications and allergy history reviewed PE: General: Alert HEENT: Normocephalic, trachea midline Eyes: Extraocular eye movement is intact, no scleral erythema Pulmonary: Clear to auscultation bilaterally, no wheezing Cardio: Regular rate and rhythm GI: Abdomen is soft, nontender : No suprapubic tenderness MSK: No evidence of trauma or malformation of the extremities, no edema Skin: No evidence of rash Neuro: Alert, no focal deficits Psychiatric: Cooperative shelter monitor: - An order was placed for continuous cardiac monitoring - Patient was noted to be in sinus rhythm with a rate of 59 CT ABDOMEN & PELVIS With Contrast: Trace bilateral lower lobe subpleural atelectasis otherwise clear lung bases. Normal cardiac size with coronary artery calcifications. Atherosclerotic disease of aorta with no aneurysm or dissection. Normal liver. Contracted gallbladder otherwise unremarkable biliary system. Normal pancreas and spleen. Normal bilateral adrenal glands. Mild bilateral perinephric stranding otherwise normal right kidney. Left mid upper renal pole stone measuring 3.8 mm. Otherwise normal left kidney. Unremarkable stomach. Nonspecific small bowel. Normal appendix. Mild gaseous distention of the transverse portion of the colon, nonspecific. No significant dilatation to suggest obstruction. Normal urinary bladder. Normal size of prostate gland. No free fluid. Advanced degenerative disease of the spine. Radiologist: Julia Brice MD Medical Decision Making: Shortly after the patient arrived IV was established, lab work obtained, patient was placed on phototypesetting equipment monitor, CT imaging of the abdomen pelvis does not show any evidence of perforation or free air, no evidence of active extravasation per stat rad radiology preliminary read. Patient's hemoglobin is stable at 13.4, patient is hemodynamically stable here in the ED but he did have one episode of bright red blood per rectum. He states this was his fourth overall this evening. Patient's INR is subtherapeutic at 1.5, I discussed all the above findings with on-call gastroenterology tonight, Dr. Mcdaniel, who does recommend observation admission for the patient to the hospitalist service with GI consultation in the morning for reevaluation. I discussed this with the patient and his family at the bedside and they are in agreement. Patient was discussed with the on-call hospitalist for [facility], Dr. Bae, and the patient was admitted in stable condition. Diagnosis: 1. Blood per rectum status post colonoscopy 2. Subtherapeutic INR Disposition: Admission Cj Gomes DO Emergency Medicine Past Med/Surg History Medical History (Updated 02/04/22 @ 02:59 by Cj Gomes DO) Anxiety Degenerative disc disease Fatty liver GERD (gastroesophageal reflux disease) OCCASIONAL Hard of hearing RIGHT EAR HTN (hypertension) Hyperlipidemia Insomnia Obesity Osteoarthritis Right knee DJD Sleep apnea CPAP Vertigo Surgical History History of arthroscopy of right knee History of cardiac cath 1994= NO STENTS History of carpal tunnel release LT History of colonoscopy W/ POLYPECTOMY History of esophagogastroduodenoscopy (EGD) History of inguinal hernia repair RT History of repair of rotator cuff RT History of tooth extraction History of umbilical hernia repair Status post left partial knee replacement Family History Brother Family history of diabetes mellitus Mother Family history of diabetes mellitus Brother Family hx of colon cancer Social History Smoking Status: Never smoker Tobacco Type: Cigars Second Hand Exposure: No; Hx Alcohol Use: Yes Hx Substance Use: No Preferred Language: Swazi Communication Ability: Effective Information Delivery Analyst Required: No Beliefs That Will Affect Care: None marital status: Current Living Situation: Spouse Feels Safe at Home: Yes Assistive Devices: CPAP Allergies Allergies Allergy/AdvReac Type Severity Reaction Status Date / Time No Known Allergies Allergy Unknown Verified 06/23/21 22:08 Home Meds Home Medications Medication Instructions Recorded Confirmed cholecalciferol (vitamin D3) 25 1,000 unit PO QAM 11/01/18 10/28/20 mcg (1,000 unit) tablet (Vitamin D3) aspirin 81 mg chewable tablet 162 mg PO QAM 10/28/20 10/28/20 atorvastatin 80 mg tablet 80 mg PO .AFTERNOON 10/28/20 10/28/20 metoprolol tartrate 25 mg tablet 25 mg PO BID 10/28/20 10/28/20 omega-3 fatty acids 1,000 mg 1,000 mg PO QAM 10/28/20 10/28/20 capsule (Fish Oil Concentrate) omeprazole 20 mg capsule,delayed 20 mg PO DAILY 10/28/20 10/28/20 release trazodone 50 mg tablet 50 mg PO HS 10/28/20 10/28/20 warfarin 5 mg tablet 2.5 mg PO 2XWK 10/28/20 10/28/20 warfarin 5 mg tablet 5 mg PO 5XWK 10/28/20 10/28/20 albuterol sulfate 90 mcg/actuation 2 puff inhalation Q4H PRN 02/04/22 02/04/22 aerosol inhaler Shortness Of Breath Or Wheezing ezetimibe 10 mg tablet 10 mg PO DAILY 02/04/22 02/04/22 lorazepam 1 mg tablet 0.5 mg PO HS PRN Insomnia 02/04/22 02/04/22 Results & Data (ED) Vital Signs Vital Signs - 24 hr 02/03/22 22:26 02/03/22 23:15 02/04/22 00:00 Temperature 37.0 C Temperature Source Temporal Artery Scan Pulse Rate 62 Pulse Rate [Apical] 53 L 52 L Pulse Rate from SpO2 Sensor Pulse Rhythm [Apical] Regular Regular Pulse Strength [Apical] Normal Normal Respiratory Rate 18 18 18 Respiratory Effort / Characteristics Non-Labored Spontaneous Non-Labored Non-Labored Respiratory Depth Normal Normal Normal Respiratory Pattern Regular Regular Regular Blood Pressure 129/66 Blood Pressure [Right Arm] 136/62 163/66 H Blood Pressure Mean 87 Blood Pressure Mean [Right Arm] 86 98 Blood Pressure Position Sitting Blood Pressure Position [Right Arm] Sitting Pulse Oximetry 96 97 96 Oxygen Delivery Method Room Air Room Air Room Air Sepsis Recent Fever Within 48 Hours No Sepsis New/Unexplained Change in Mental Status N/A Sepsis Action Taken by Nursing No Action Required 02/04/22 00:17 02/03/22 23:01 02/03/22 23:30 Temperature Temperature Source Pulse Rate 53 L 52 L Pulse Rate [Apical] Pulse Rate from SpO2 Sensor 53 L 52 L Pulse Rhythm [Apical] Pulse Strength [Apical] Respiratory Rate 20 19 Respiratory Effort / Characteristics Respiratory Depth Respiratory Pattern Blood Pressure 136/62 Blood Pressure [Right Arm] Blood Pressure Mean 86 Blood Pressure Mean [Right Arm] Blood Pressure Position Blood Pressure Position [Right Arm] Pulse Oximetry 96 95 96 Oxygen Delivery Method Room Air Sepsis Recent Fever Within 48 Hours Sepsis New/Unexplained Change in Mental Status Sepsis Action Taken by Nursing 02/04/22 00:14 02/04/22 00:30 02/04/22 01:00 Temperature Temperature Source Pulse Rate 70 50 L 51 L Pulse Rate [Apical] Pulse Rate from SpO2 Sensor 70 50 L 52 L Pulse Rhythm [Apical] Pulse Strength [Apical] Respiratory Rate 15 18 20 Respiratory Effort / Characteristics Respiratory Depth Respiratory Pattern Blood Pressure 163/66 H Blood Pressure [Right Arm] Blood Pressure Mean 98 Blood Pressure Mean [Right Arm] Blood Pressure Position Blood Pressure Position [Right Arm] Pulse Oximetry 95 96 95 Oxygen Delivery Method Sepsis Recent Fever Within 48 Hours Sepsis New/Unexplained Change in Mental Status Sepsis Action Taken by Nursing 02/04/22 01:26 02/04/22 01:30 02/04/22 02:30 Temperature Temperature Source Pulse Rate 50 L 50 L 57 L Pulse Rate [Apical] Pulse Rate from SpO2 Sensor 50 L 50 L 54 L Pulse Rhythm [Apical] Pulse Strength [Apical] Respiratory Rate 16 16 18 Respiratory Effort / Characteristics Respiratory Depth Respiratory Pattern Blood Pressure 164/7 H 165/81 H 176/80 H Blood Pressure [Right Arm] Blood Pressure Mean 59 109 112 Blood Pressure Mean [Right Arm] Blood Pressure Position Blood Pressure Position [Right Arm] Pulse Oximetry 96 97 97 Oxygen Delivery Method Sepsis Recent Fever Within 48 Hours Sepsis New/Unexplained Change in Mental Status Sepsis Action Taken by Nursing Laboratory Data Result diagrams: 02/03/22 22:06 02/03/22 22:06 Lab Results 02/03/22 02/03/22 02/03/22 Range/Units 22:06 22:06 22:06 WBC 6.98 (4.8-10.8) K/ul RBC 4.09 L (4.63-6.08) M/uL Hgb 13.4 L (14.0-18.0) g/dl Hct 38.2 L (40.1-51.0) % MCV 93.4 (80.0-100.0) fL MCH 32.8 (25.0-34.0) pg MCHC 35.1 (32.0-36.0) g/dL RDW Std Deviation 45.1 (36.4-46.3) fL RDW Coeff of Geovani 13.2 (11.5-14.5) % Plt Count 225 (130-400) K/uL MPV 9.2 L (9.4-12.4) fL Immature Gran % (Auto) 0.3 % Neut % (Auto) 59.3 % Lymph % (Auto) 31.4 % Burnett % (Auto) 6.0 % Eos % (Auto) 2.3 % Baso % (Auto) 0.7 % Neut # (Auto) 4.14 (1.4-6.5) K/uL Lymph # (Auto) 2.19 (1.2-3.4) K/uL Burnett # (Auto) 0.42 (0.24-0.82) K/uL Eos # (Auto) 0.16 (0-0.50) K/uL Baso # (Auto) 0.05 (0-0.2) K/uL Immature Gran # (Auto) 0.02 (0.00-0.02) K/uL PT 15.6 H (9.0-12.0) Seconds INR 1.5 H (0.9-1.1) Sodium 139 (136-145) mmol/L Potassium 3.8 (3.5-5.1) mmol/L Chloride 107 (98-107) mmol/L Carbon Dioxide 25 (21-32) mmol/L Anion Gap 7 (3-11) BUN 18 (6-23) mg/dl Creatinine 1.17 (0.6-1.4) mg/dl Est Cr Clr Drug Dosing 73.7 ml/min Est GFR ( Amer) 71.3 ml/min Est GFR (Non-Af Amer) 61.5 ml/min BUN/Creatinine Ratio 15.4 (10-20) Glucose 131 H (70-99(Fasting)) mg/dl Calcium 9.2 (8.5-10.1) mg/dl Total Bilirubin 0.5 (0.2-1.0) mg/dl AST 18 (13-39) U/L ALT 15 (7-52) U/L Alkaline Phosphatase 93 (34-104) U/L Total Protein 7.5 (6.0-8.3) gm/dl Albumin 4.2 (3.4-5.0) gm/dl Globulin 3.3 (2.5-4.0) gm/dl Albumin/Globulin Ratio 1.3 (0.9-2) Lipase 31 (11-82) U/L Urine Color Urine Appearance (Clear) Urine pH (4.5-7.5) Ur Specific [place] (1.000-1.030) Urine Protein (Negative) Urine Glucose (UA) (Negative) Urine Ketones (Negative) Urine Blood (Negative) Urine Nitrite (Negative) Urine Bilirubin (Negative) Urine Urobilinogen (Negative) Ur Leukocyte Esterase (Negative) SARS-CoV-2, RNA, NAAT (NEGATIVE) 02/04/22 02/04/22 Range/Units 00:15 01:20 WBC (4.8-10.8) K/ul RBC (4.63-6.08) M/uL Hgb (14.0-18.0) g/dl Hct (40.1-51.0) % MCV (80.0-100.0) fL MCH (25.0-34.0) pg MCHC (32.0-36.0) g/dL RDW Std Deviation (36.4-46.3) fL RDW Coeff of Geovani (11.5-14.5) % Plt Count (130-400) K/uL MPV (9.4-12.4) fL Immature Gran % (Auto) % Neut % (Auto) % Lymph % (Auto) % Burnett % (Auto) % Eos % (Auto) % Baso % (Auto) % Neut # (Auto) (1.4-6.5) K/uL Lymph # (Auto) (1.2-3.4) K/uL [place]ett # (Auto) (0.24-0.82) K/uL Eos # (Auto) (0-0.50) K/uL Baso # (Auto) (0-0.2) K/uL Immature Gran # (Auto) (0.00-0.02) K/uL PT (9.0-12.0) Seconds INR (0.9-1.1) Sodium (136-145) mmol/L Potassium (3.5-5.1) mmol/L Chloride (98-107) mmol/L Carbon Dioxide (21-32) mmol/L Anion Gap (3-11) BUN (6-23) mg/dl Creatinine (0.6-1.4) mg/dl Est Cr Clr Drug Dosing ml/min Est GFR ( Amer) ml/min Est GFR (Non-Af Amer) ml/min BUN/Creatinine Ratio (10-20) Glucose (70-99(Fasting)) mg/dl Calcium (8.5-10.1) mg/dl Total Bilirubin (0.2-1.0) mg/dl AST (13-39) U/L ALT (7-52) U/L Alkaline Phosphatase (34-104) U/L Total Protein (6.0-8.3) gm/dl Albumin (3.4-5.0) gm/dl Globulin (2.5-4.0) gm/dl Albumin/Globulin Ratio (0.9-2) Lipase (11-82) U/L Urine Color Yellow Urine Appearance Clear (Clear) Urine pH 5.5 (4.5-7.5) Ur Specific [place] 1.029 (1.000-1.030) Urine Protein Negative (Negative) Urine Glucose (UA) Negative (Negative) Urine Ketones Negative (Negative) Urine Blood Negative (Negative) Urine Nitrite Negative (Negative) Urine Bilirubin Negative (Negative) Urine Urobilinogen Negative (Negative) Ur Leukocyte Esterase Negative (Negative) SARS-CoV-2, RNA, NAAT NEGATIVE (NEGATIVE) Administered Medications Discontinued Medications Sodium Chloride (Nss 1000ml) 500 mls @ 999 mls/hr IV .Q31M ONE Stop: 02/03/22 23:44 Last Infusion: 02/04/22 00:15 Dose: 0 mls/hr Documented By: Admin: 02/03/22 23:17 Dose: 999 mls/hr Documented By: MARIELENA Ioversol (Ioversol 350 Mg 100ml Prefilled Syringe) 92 ml IV ONCE ONE Stop: 02/04/22 00:35 Last Admin: 02/04/22 00:35 Dose: 92 ml Documented By: SHAILESH Discharge Plan Visit Data Chief Complaint: Rectal Bleed Stated Complaint: RECTAL BLEED ED Provider: Cj Gomes Discharge Problem: Lower gastrointestinal hemorrhage Forms Stand Alone Forms: My [facility] Prescriptions Prescriptions: No Action cholecalciferol (vitamin D3) [Vitamin D3] 1,000 unit Tablet 1,000 unit PO QAM lorazepam 1 mg tablet 0.5 mg PO HS PRN (Reason: Insomnia) albuterol sulfate 90 mcg/actuation HFA aerosol inhaler 2 puff INHALATION Q4H PRN (Reason: Shortness Of Breath Or Wheezing) ezetimibe 10 mg tablet 10 mg PO DAILY atorvastatin 80 mg tablet 80 mg PO .AFTERNOON omega-3 fatty acids [Fish Oil Concentrate] 1,000 mg Capsule 1,000 mg PO QAM aspirin 81 mg tablet,chewable 162 mg PO QAM Rx Instructions: TWO TABLET DOSE EVERY MORNING warfarin 5 mg tablet 5 mg PO 5XWK Rx Instructions: TAKE 5MG EVERY MONDAY/MONDAY/MONDAY/MONDAY/MONDAY. TAKE MID-DAY. warfarin 5 mg tablet 2.5 mg PO 2XWK Rx Instructions: TAKE 2.5MG EVERY MONDAY AND MONDAY. TAKE THIS MED MID-DAY. omeprazole 20 mg capsule,delayed release(DR/EC) 20 mg PO DAILY metoprolol tartrate 25 mg tablet 25 mg PO BID trazodone 50 mg tablet 50 mg PO HS Referrals Referrals: Cj Irby MD [Primary Care Provider] -
[2022-02-03 23:23] LABS: Basophils # (auto) 0.05 K/uL (0-0.2); Basophils % (auto) 0.7 %; Eosinophils # (auto) 0.16 K/uL (0-0.50); Eosinophils % (auto) 2.3 %; Hematocrit (blood only) 38.2 % (40.1-51.0); Hemoglobin 13.4 g/dl (14.0-18.0); Immature Granulocytes # (auto) 0.02 K/uL (0.00-0.02); Immature Granulocytes % (auto) 0.3 %; Lymphocytes # (auto) 2.19 K/uL (1.2-3.4); Lymphocytes % (auto) 31.4 %; Mean Corpuscular Hemoglobin 32.8 pg (25.0-34.0); Mean Corpuscular Hgb Conc 35.1 g/dL (32.0-36.0); Mean Corpuscular Volume 93.4 fL (80.0-100.0); Mean Platelet Volume 9.2 fL (9.4-12.4); Monocytes # (auto) 0.42 K/uL (0.24-0.82); Neutrophils # (auto) 4.14 K/uL (1.4-6.5); Neutrophils % (auto) 59.3 %; Platelet Count 225 K/uL (130-400); RDW Coefficient of Variation 13.2 % (11.5-14.5); RDW Standard Deviation 45.1 fL (36.4-46.3); Red Blood Count 4.09 M/uL (4.63-6.08); White Blood Count 6.98 K/ul (4.8-10.8)
[2022-02-03 23:35] LABS: INR 1.5 (0.9-1.1); Prothrombin Time 15.6 Seconds (9.0-12.0)
[2022-02-03 23:49] LABS: Albumin Globulin Ratio 1.3 (0.9-2); Albumin Level 4.2 gm/dl (3.4-5.0); BUN Creatinine Ratio 15.4 (10-20); Bilirubin,Total 0.5 mg/dl (0.2-1.0); Calcium 9.2 mg/dl (8.5-10.1); Creatinine Clr Calc Pharmacy 73.7 ml/min; Est GFR (African American) 71.3 ml/min; Est GFR (Non-African American) 61.5 ml/min; Globulin 3.3 gm/dl (2.5-4.0); Potassium 3.8 mmol/L (3.5-5.1); Total Protein 7.5 gm/dl (6.0-8.3)
[2022-02-04 00:31] LABS: Appearance Urine Clear (Clear); Bilirubin Urine Negative (Negative); Blood Urine Negative (Negative); Color Urine Yellow; Glucose Urine UA Negative (Negative); Ketones Urine Negative (Negative); Leukocyte Esterase Urine Negative (Negative); Nitrite Urine Negative (Negative); Protein Urine Negative (Negative); Specific Gravity Urine 1.029 (1.000-1.030); Urobilinogen Urine Negative (Negative); pH Urine 5.5 (4.5-7.5)
[2022-02-04] MEDS ORDERED: IOVERSOL 350 MG 100mL Prefilled Syringe IV ONE (00:34)
[2022-02-04] MEDS ORDERED: traZODone HCL 50 MG TAB PO ONE (02:24)
--- NOTE | 2022-02-04 04:01 | History and Physical Report ---
DATE OF ADMISSION: 02/03/2022. CHIEF COMPLAINT: Rectal bleed. HISTORY OF PRESENT ILLNESS: A 71-year-old male with past medical history significant for hyperlipidemia, prediabetes, sleep apnea, on CPAP; paroxysmal atrial fibrillation, hypertension, CAD, history of phlebitis of right arm, history of obesity, Boateng's esophagus without dysplasia, chronic kidney disease, stage III; osteoarthrosis, Mnire syndrome, history of postoperative anemia due to acute blood loss, history of seasonal affective disorder, history of anxiety, status post CABG, presents with rectal bleed. The patient had colonoscopy in the morning and had polypectomy and also found to have diverticulosis. After that, he started to have rectal bleed, came to the ER, had several episodes of rectal bleed so far. No abdominal pain, no nausea, no vomiting. Normal bladder movements. No chest pain, no shortness of breath, no cough, no headache, no dizziness, no blurred visions, no earache, no runny nose, no sore throat. Currently, resting comfortably and hemodynamically stable. His Coumadin was held for his colonoscopy. His INR is 1.5 in the ER. ALLERGIES: No known drug allergies. PAST MEDICAL HISTORY: As mentioned above. PAST SURGICAL HISTORY: CABG, left heart catheterization, colonoscopy, EGDs, lumbosacral spine injections, right hand dorsal tendon repair, right knee medial meniscal repair, right shoulder repair, inguinal hernia repair, umbilical hernia repair. MEDICATIONS: The patient is on albuterol 2 puffs inhalation q.4 hours p.r.n., aspirin 162 mg p.o. daily, atorvastatin 80 mg p.o. daily, vitamin D 1000 units p.o. a.m., Zetia 10 mg p.o. daily, lorazepam 0.5 mg p.o. at bedtime p.r.n., metoprolol tartrate 25 mg p.o. b.i.d., [place] fish oil 1000 mg p.o. a.m., omeprazole 20 mg p.o. daily, trazodone 50 mg p.o. at bedtime, warfarin 5 mg five times a week and 2.5 mg p.o. two times a week. FAMILY HISTORY: Significant for brother has diabetes; father has heart disorder; mother has hypertension and stroke. SOCIAL HISTORY: . Chews tobacco. Alcohol, social drinking. No drug use. REVIEW OF SYSTEMS: As per HPI. Rest of review of systems is negative. PHYSICAL EXAMINATION: GENERAL: The patient is obese, not in acute distress. VITAL SIGNS: Temperature 37, pulse 57, respiratory rate 18, blood pressure 176/80, oxygen 97% on room air. HEENT: Pupils equal, round and reactive to light. Oral mucosa moist. NECK: No JVD or neck masses. CARDIOVASCULAR: S1 and S2 heard. Regular rate and rhythm. No murmur, no gallop. RESPIRATORY SYSTEM: Normal AP diameter. No accessory muscle use. No wheezing or crackles. ABDOMEN: Soft, bowel sounds present, nontender, no distention. CENTRAL NERVOUS SYSTEM: Cranial nerves II-XII grossly intact, nonfocal. EXTREMITIES: Mild pedal edema, no erythema seen. LABORATORY DATA: WBC 6.9, hemoglobin 13.4, hematocrit 38.2, platelets 225. PT 15.6, INR 1.5. Sodium 139, potassium 3.8, chloride 107, bicarb 25, BUN 18, creatinine 1.1, serum glucose 131, calcium 9.2, total bilirubin 0.5, AST 18, ALT 15, alkaline phosphatase 93, lipase 31. Urinalysis negative. SARS-CoV-2 rapid test negative. IMAGING DATA: CT of abdomen and pelvis preliminary report, trace bilateral lower lobe subpleural atelectasis, left mid upper renal pole stone measuring 3.8 mm, otherwise unremarkable study. EKG: Sinus bradycardia with first-degree AV block at a rate of 51. No acute ST changes seen. ASSESSMENT AND PLAN: This 71-year-old male presents with rectal bleed. 1. Rectal bleed post-colonoscopy and polypectomy also found to have diverticulosis on colonoscopy. Hemoglobin stable at 13.4. Blood consent obtained. We will follow hemoglobin and hematocrit. We will keep him n.p.o., IV Protonix 40 b.i.d., IV fluids. Consult GI in the a.m. Closely monitor in the tele floor. 2. History of sleep apnea: On CPAP at bedtime. 3. History of prediabetes: Currently n.p.o. Will follow the blood sugars, follow HbA1c levels. 4. History of paroxysmal atrial fibrillation: Continue his metoprolol tartrate. Holding aspirin and Coumadin. 5. Hyperlipidemia: On statin. 6. History of coronary artery disease: Holding aspirin. Continue statin and beta alen. 7. Morbid obesity: Needs counseling. 8. Boateng's esophagus. We will place him on IV Protonix b.i.d. for now. 9. Chronic kidney disease, stage III: Presently creatinine of 1.1. We will follow the labs. 10. Deep venous thrombosis prophylaxis: SCDs for now. DISPOSITION: Closely monitor in the tele floor. Level 1 full code. Expect to discharge home and follow with family doctor. Job ID: [id number] GENESEE HOSPITALAshley
[2022-02-04] MEDS ORDERED: ONDANSETRON INJ 2 MG/ML 2 ML VIAL IV PRN (04:25)
[2022-02-04] MEDS ORDERED: NITROGLYCERIN SL 0.4 MG/TAB TAB SL PRN (04:25)
[2022-02-04] MEDS ORDERED: LORazepam 0.5 MG TAB PO PRN (04:25)
[2022-02-04] MEDS ORDERED: ACETAMINOPHEN 325 MG TAB PO PRN (04:25)
[2022-02-04] MEDS ORDERED: ALBUTEROL HFA 8 GM INHALER INH PRN (04:25)
[2022-02-04] MEDS: SODIUM CHLORIDE 0.9% 1000ML 1,000 ML IV SCH ×2 (04:43→14:22)
[2022-02-04] MEDS ORDERED: INFLUENZA VACCINE HIGH DOSE PF 65+ 0.7 ML SYR IM ONE (04:44)
[2022-02-04 05:48] LABS: Basophils # (auto) 0.04 K/uL (0-0.2); Basophils % (auto) 0.7 %; Eosinophils # (auto) 0.19 K/uL (0-0.50); Eosinophils % (auto) 3.2 %; Hemoglobin 12.5 g/dl (14.0-18.0); Immature Granulocytes # (auto) 0.01 K/uL (0.00-0.02); Immature Granulocytes % (auto) 0.2 %; Lymphocytes # (auto) 2.04 K/uL (1.2-3.4); Lymphocytes % (auto) 34.9 %; Mean Corpuscular Hgb Conc 34.7 g/dL (32.0-36.0); Mean Corpuscular Volume 92.1 fL (80.0-100.0); Mean Platelet Volume 9.2 fL (9.4-12.4); Monocytes # (auto) 0.39 K/uL (0.24-0.82); Monocytes % (auto) 6.7 %; Neutrophils # (auto) 3.18 K/uL (1.4-6.5); Neutrophils % (auto) 54.3 %; Platelet Count 194 K/uL (130-400); RDW Standard Deviation 43.6 fL (36.4-46.3); Red Blood Count 3.91 M/uL (4.63-6.08); White Blood Count 5.85 K/ul (4.8-10.8)
[2022-02-04 05:56] LABS: INR 1.5 (0.9-1.1); Prothrombin Time 15.3 Seconds (9.0-12.0)
[2022-02-04 06:13] LABS: BUN Creatinine Ratio 16.8 (10-20); Calcium 8.9 mg/dl (8.5-10.1); Creatinine Clr Calc Pharmacy 81.4 ml/min; Est GFR (African American) 79.4 ml/min; Est GFR (Non-African American) 68.5 ml/min; Magnesium 1.7 mg/dl (1.7-2.4)
[2022-02-04] MEDS ORDERED: PHYTONADIONE 5 MG TAB PO STA (08:21)
[2022-02-04] MEDS ORDERED: EZETIMIBE 10 MG TABLET PO SCH ×2 (09:00→17:00)
[2022-02-04] MEDS: PANTOprazole 40 MG in SYRINGE 0 ML IV SCH ×2 (09:24→19:33)
--- NOTE | 2022-02-04 09:59 | CT Scan Report ---
ABDOMEN AND PELVIS CT WITH IV CONTRAST CT DOSE: 1409.15 mGy.cm HISTORY: rectal bleeding, colonoscopy today TECHNIQUE: Multiaxial CT images of the abdomen and pelvis were performed following the use of intrave nous contrast. A dose lowering technique was utilized adhering to the principles of ALARA. COMPARISON STUDY: Chest CT 07/06/2017. FINDINGS: Stable partially calcified 1.4 cm nodule within the left lower lobe. This is likely benign given the long-term stability. A few additional subcentimeter nodules within the left lower lobe are also stable and therefore likely benign. No pneumoperitoneum. No pneumatosis. There are poststernotom y changes. Coronary artery and mitral annulus calcifications are noted. The liver, gallbladder, splee n, adrenal glands, and pancreas are unremarkable. Bilateral renal sinus calcifications may be vascula r. There is mild bilateral cortical renal scarring and mild bilateral perinephric edema. This is like ly chronic. No ureteral stones. No hydronephrosis. Main portal vein is patent. No retroperitoneal lym phadenopathy. Moderate calcified plaque within the normal caliber abdominal aorta. No pelvic free flu id. A few colonic diverticula. No evidence for acute diverticulitis. No bowel wall thickening or obst ruction. Normal appendix. IMPRESSION: 1. No bowel wall thickening or obstruction. 2. No pneumoperitoneum. No pneumatosis. 3. Colonic diverticulosis. No evidence for acute diverticulitis. 4. Bilateral renal sinus calcifications which may be vascular. No ureteral stones. No hydronephrosis. ACT 112: Negative or not required by law. Electronically signed by: Sudeep Livingston M.D. 02/04/2022 9:57 AM
[2022-02-04] MEDS ORDERED: Nursing to Pharmacy Communication SCH ×2 (10:15→13:45)
[2022-02-04] MEDS: METOPROLOL TARTRATE 25 MG TAB PO SCH ×2 (10:19→19:31)
[2022-02-04 11:28] LABS: Hematocrit (blood only) 38.2 % (40.1-51.0); Hemoglobin 13.5 g/dl (14.0-18.0)
--- NOTE | 2022-02-04 11:37 | Gastrointestinal Consultation ---
Date of Consultation February 04, 2022 Assessment & Plan (1) Lower gastrointestinal hemorrhage: Pt is a 71 yo male who presented w rectal bleeding, s/p colonoscopy w polypectomy. Blood ct stable, no acute changes in CT. - Monitor blood ct and transfuse prn - Keep NPO for now - Vit K 5mg PO x 1 dose - Monitor for further rectal bleeding, if present and increased in amt, may consider colonoscopy for bleeding management Supervising Physician Co-Signing Physician Notes I performed a history and physical examination of the patient today, including specifically on physical exam - soft abdomen. I have discussed the patient's management with the advanced practitioner. Please refer to the nurse practitioner's note for the documented findings and plan of care. Bleeding stopped spontaneously. Can start PO diet. May resume Coumadin after 48 hrs if no recurrent bleeding. Recall GI if needed. History of Present Illness Reason for Consultation: Rectal bleeding Requesting Physician: Dr. Shannan Terrazas Attending Physician: Dr. Frank Orourke History of Present Illness Pt is a 71 years old male with past medical histories including hyperlipidemia, prediabetes, KINSEY on CPAP, A. fib on Coumadin, hypertension, CAD, Boateng's esophagus without dysplasia, CKD type III, osteoarthritis, Mnire's disease, s/p CABG who presented last night with complaints of rectal bleeding. Patient had colonoscopy and EGD yesterday morning by Dr. Rojas. Was found to have several colon polyps in the ascending and transverse colon, removed by cold snare. He was doing well after his colonoscopy, came home around 11 AM. By 6 PM he had bowel movement with lots of bright red blood per rectum. He had a total of 3 bloody bowel movements before coming into the ER. Had 2 more episodes of bloody bowel movement while in the ER, and another 1 this morning around 830 however noticed that the amount of bleeding has significantly decreased, only noticeable on his toilet paper. He has held his Coumadin since before his colonoscopy. Has not restarted since his procedure was completed, INR upon recheck was 1.5. Lab work including CBC, CMP unremarkable. Blood count stable. CT abdomen pelvis with contrast without acute changes including no signs of obstruction, pneumoperitoneum or pneumonitis. Allergies Allergy/AdvReac Type Severity Reaction Status Date / Time No Known Allergies Allergy Unknown Verified 10/28/20 22:08 Home Medications Medication Instructions Recorded Confirmed Type cholecalciferol (vitamin D3) 25 1,000 unit PO QAM 11/01/18 10/28/20 History mcg (1,000 unit) tablet (Vitamin D3) aspirin 81 mg chewable tablet 162 mg PO QAM 10/28/20 10/28/20 History atorvastatin 80 mg tablet 80 mg PO .AFTERNOON 10/28/20 10/28/20 History metoprolol tartrate 25 mg tablet 25 mg PO BID 10/28/20 10/28/20 History omega-3 fatty acids 1,000 mg 1,000 mg PO QAM 10/28/20 10/28/20 History capsule (Fish Oil Concentrate) omeprazole 20 mg capsule,delayed 20 mg PO DAILY 10/28/20 10/28/20 History release trazodone 50 mg tablet 50 mg PO HS 10/28/20 10/28/20 History warfarin 5 mg tablet 2.5 mg PO 2XWK 10/28/20 10/28/20 History warfarin 5 mg tablet 5 mg PO 5XWK 10/28/20 10/28/20 History albuterol sulfate 90 mcg/actuation 2 puff inhalation Q4H PRN 02/04/22 02/04/22 History aerosol inhaler Shortness Of Breath Or Wheezing ezetimibe 10 mg tablet 10 mg PO DAILY 02/04/22 02/04/22 History lorazepam 1 mg tablet 0.5 mg PO HS PRN Insomnia 02/04/22 02/04/22 History Patient History Medical History Anxiety Degenerative disc disease Fatty liver GERD (gastroesophageal reflux disease) OCCASIONAL Hard of hearing RIGHT EAR HTN (hypertension) Hyperlipidemia Insomnia Obesity Osteoarthritis Right knee DJD Sleep apnea CPAP Vertigo Surgical History History of arthroscopy of right knee History of cardiac cath 1994= NO STENTS History of carpal tunnel release LT History of colonoscopy W/ POLYPECTOMY History of esophagogastroduodenoscopy (EGD) History of inguinal hernia repair RT History of repair of rotator cuff RT History of tooth extraction History of umbilical hernia repair Status post left partial knee replacement Family History Brother Family history of diabetes mellitus Mother Family history of diabetes mellitus Brother Family hx of colon cancer Social History Smoking Status: Never smoker Tobacco Type: Cigars Second Hand Exposure: No; Hx Alcohol Use: No Hx Substance Use: No Preferred Language: [place] Citizen Communication Ability: Effective Sample Builder Required: No Beliefs That Will Affect Care: None marital status: Current Living Situation: Spouse Other Information That Helps Us Care for You: No Feels Safe at Home: Yes Safety Concerns: Feels Safe At This Time Assistive Devices: Cane Review of Systems Review of Systems: All systems reviewed & are unremarkable except as noted in HPI & below Physical Exam Constitutional: WD/WN, vitals as above well groomed, cooperative and comfortable Eyes: PERRL, conjunctivae normal, anicteric sclerae ENMT: external ear and nose normal, oropharynx normal Respiratory: normal respiratory effort, lungs clear to auscultation Cardiovascular: RRR, no murmur, no edema Gastrointestinal (Abdomen): normal bowel sounds, soft, nontender, no hepatosplenomegaly Skin: no rashes, warm and dry no jaundice Psychiatric: A+Ox3, euthymic affect Lymphatic: no lymphedema Results & Data ([facility]) Vital Signs (Past 12 Hours) Vital Signs Temp Pulse Pulse Pulse Resp BP BP 02/04/22 10:18 52 L 138/88 02/04/22 07:37 36.6 C 58 L 19 02/04/22 05:07 177/84 H 02/04/22 04:29 36.4 C L 57 L 16 02/04/22 02:30 57 L 18 176/80 H 02/04/22 01:30 50 L 16 165/81 H 02/04/22 01:26 50 L 16 164/7 H 02/04/22 01:00 51 L 20 02/04/22 00:30 50 L 18 163/66 H 02/04/22 00:14 70 15 02/03/22 23:30 52 L 19 02/04/22 00:17 02/04/22 00:00 52 L 18 BP Pulse Ox O2 Del Method 02/04/22 10:18 02/04/22 07:37 156/83 H 98 Room Air 02/04/22 05:07 02/04/22 04:29 179/90 H 97 Room Air 02/04/22 02:30 97 02/04/22 01:30 97 02/04/22 01:26 96 02/04/22 01:00 95 02/04/22 00:30 96 02/04/22 00:14 95 02/03/22 23:30 96 02/04/22 00:17 96 Room Air 02/04/22 00:00 163/66 H 96 Room Air
--- NOTE | 2022-02-04 11:55 | Communication Note ---
Date of Service: February 04, 2022 Patient seen and examined Reported 2 bloody BM overnight since admission but none so far today. Exam is only notable for obesity. Hemoglobin currently stable Had received Vit K in AM per GI Discussed with GI. OK to start liquid diet Patient asked that his Shift Supervisor Melting be made aware. I discussed with Dr Damon his manager harbor. He recommends resuming ASA once possible and warfarin can be held for up to a week Will monitor overnight. Possible dc in AM Agree with other plans as detailed in H&P by Dr Bae this AM
[2022-02-04] MEDS ORDERED: ATORVASTATIN 40 MG TAB PO SCH ×2 (14:00→17:00)
[2022-02-04] MEDS ORDERED: traZODone HCL 50 MG TAB PO SCH (21:00)
--- NOTE | 2022-02-04 21:21 | Electrocardiogram Report ---
Test Reason : Blood Pressure : / mmHG Vent. Rate : 051 BPM Atrial Rate : 051 BPM P-R Int : 250 ms QRS Dur : 104 ms QT Int : 464 ms P-R-T Axes : 056 011 068 degrees QTc Int : 427 ms Sinus bradycardia with 1st degree A-V block Otherwise normal ECG When compared with ECG of 06-NOV-2018 13:08, Questionable change in QRS axis Confirmed by Jacob Doherty ([id number]) on 02/04/2022 9:20:51 PM Referred By: REFERRED SELF Confirmed By:Jacob Doherty
[2022-02-05] MEDS: SODIUM CHLORIDE 0.9% 1000ML 1,000 ML IV SCH (00:01)
[2022-02-05 07:17] LABS: Hematocrit (blood only) 35.5 % (40.1-51.0); Hemoglobin 12.4 g/dl (14.0-18.0); Mean Corpuscular Hemoglobin 32.4 pg (25.0-34.0); Mean Corpuscular Hgb Conc 34.9 g/dL (32.0-36.0); Mean Corpuscular Volume 92.7 fL (80.0-100.0); Mean Platelet Volume 9.3 fL (9.4-12.4); Platelet Count 199 K/uL (130-400); Red Blood Count 3.83 M/uL (4.63-6.08); White Blood Count 5.26 K/ul (4.8-10.8)
[2022-02-05 07:36] LABS: INR 1.2 (0.9-1.1); Prothrombin Time 12.6 Seconds (9.0-12.0)
[2022-02-05] MEDS: PANTOprazole 40 MG in SYRINGE 0 ML IV SCH (07:47)
[2022-02-05] MEDS: METOPROLOL TARTRATE 25 MG TAB PO SCH (07:47)
[2022-02-05 08:17] LABS: BUN Creatinine Ratio 14.4 (10-20); Calcium 8.7 mg/dl (8.5-10.1); Creatinine Clr Calc Pharmacy 89.8 ml/min; Est GFR (African American) 89.4 ml/min; Est GFR (Non-African American) 77.1 ml/min; Potassium 3.8 mmol/L (3.5-5.1)
[2022-02-05] MEDS ORDERED: amLODIPine BESYLATE 5 MG TAB PO SCH (09:00)
--- NOTE | 2022-02-05 12:11 | Discharge Summary ---
Discharge Summary Date of Service February 05, 2022 Notes For Next Care Provider Monitor blood pressure and manage Patient to follow up with Anticoagulation for INR check within the week Medication Changes From Visit Resume home ASA Can resume home warfarin tomorrow Started on amlodipine 5mg daily for hypertension Admission HPI Per Admitting Provider A 71-year-old male with past medical history significant for hyperlipidemia, prediabetes, sleep apnea, on CPAP; paroxysmal atrial fibrillation, hypertension, CAD, history of phlebitis of right arm, history of obesity, Boateng's esophagus without dysplasia, chronic kidney disease, stage III; osteoarthrosis, Mnire syndrome, history of postoperative anemia due to acute blood loss, history of seasonal affective disorder, history of anxiety, status post CABG, presents with rectal bleed. The patient had colonoscopy in the morning and had polypectomy and also found to have diverticulosis. After that, he started to have rectal bleed, came to the ER, had several episodes of rectal bleed so far. No abdominal pain, no nausea, no vomiting. Normal bladder movements. No chest pain, no shortness of breath, no cough, no headache, no dizziness, no blurred visions, no earache, no runny nose, no sore throat. Currently, resting comfortably and hemodynamically stable. His Coumadin was held for his colonoscopy. His INR is 1.5 in the ER. Admission Exam Per Admitting Provider GENERAL: The patient is obese, not in acute distress. VITAL SIGNS: Temperature 37, pulse 57, respiratory rate 18, blood pressure 176/80, oxygen 97% on room air. HEENT: Pupils equal, round and reactive to light. Oral mucosa moist. NECK: No JVD or neck masses. CARDIOVASCULAR: S1 and S2 heard. Regular rate and rhythm. No murmur, no gallop. RESPIRATORY SYSTEM: Normal AP diameter. No accessory muscle use. No wheezing or crackles. ABDOMEN: Soft, bowel sounds present, nontender, no distention. CENTRAL NERVOUS SYSTEM: Cranial nerves II-XII grossly intact, nonfocal. EXTREMITIES: Mild pedal edema, no erythema seen. Principal Dx & Hospital Course #1 = Principal Diagnosis (1) Lower gastrointestinal hemorrhage: (2) Hypertension: Plan Patient presented with rectal bleed episodes after colonoscopy with polypectomy Had 3 episodes at home On presentation, INR was 1.5. Had 2 episode of bloody bowel movements in the hospital. He was managed for post procedural gastrointestinal bleeding, likely complication of colonoscopy with polypectomy on patient on warfarin. Patient has been off warfarin for a few days prior to procedure Patient was evaluated by GI and got vitamin K Rectal bleeding resolved. Reported brown stool today. Hemoglobin remained stable. Patient to resume ASA today. Per discussion with GI yesterday, ok to resume warfarin tomorrow evening. Patient advised to follow up with Anticoagulation clinic within the week for INR check. Patient's blood pressure was persistently elevated during his stay with systolic BP of 160-179. He was started on 5mg amlodipine. This was prescribed on discharge. Patient reported he will get BP machine at his pharm today. Advised to keep a blood pressure log for PCP. Discharge Exam Constitutional + well hydrated and + obese; no acute distress Eyes PERRL, conjunctivae normal, anicteric sclerae ENMT external ear and nose normal, oropharynx normal Respiratory normal respiratory effort, lungs clear to auscultation Cardiovascular Rate/Rhythm: regular rate and regular rhythm S1 S2 Gastrointestinal (Abdomen) normal bowel sounds, soft, nontender, no hepatosplenomegaly Musculoskeletal no cyanosis or clubbing, extremities motor strength 5/5 Neurologic PERRL, EOMI, accommodation nl, no face palsy, no dysarthria Psychiatric A+Ox3, euthymic affect Updated Medication List Medication Instructions Recorded Confirmed Type cholecalciferol (vitamin D3) 25 1,000 unit PO QAM 11/01/18 10/28/20 History mcg (1,000 unit) tablet (Vitamin D3) aspirin 81 mg chewable tablet 162 mg PO QAM 10/28/20 10/28/20 History atorvastatin 80 mg tablet 80 mg PO .AFTERNOON 10/28/20 10/28/20 History metoprolol tartrate 25 mg tablet 25 mg PO BID 10/28/20 10/28/20 History omega-3 fatty acids 1,000 mg 1,000 mg PO QAM 10/28/20 10/28/20 History capsule (Fish Oil Concentrate) omeprazole 20 mg capsule,delayed 20 mg PO DAILY 10/28/20 10/28/20 History release trazodone 50 mg tablet 50 mg PO HS 10/28/20 10/28/20 History warfarin 5 mg tablet 2.5 mg PO 2XWK 10/28/20 10/28/20 History warfarin 5 mg tablet 5 mg PO 5XWK 10/28/20 10/28/20 History albuterol sulfate 90 mcg/actuation 2 puff inhalation Q4H PRN 02/04/22 02/04/22 History aerosol inhaler Shortness Of Breath Or Wheezing ezetimibe 10 mg tablet 10 mg PO DAILY 02/04/22 02/04/22 History lorazepam 1 mg tablet 0.5 mg PO HS PRN Insomnia 02/04/22 02/04/22 History amlodipine 5 mg tablet (Norvasc) 5 mg PO QAM #30 tabs 02/05/22 Rx Hospital Stay Data Consultations 02/04/22 00:58 ED Decision to Admit Stat 02/04/22 08:00 Consult Gastroenterology Routine Diagnostic Imagining Performed 02/03/22 23:14 CT abd pelvis IV con only Stat Stable partially calcified 1.4 cm nodule within the left lower lobe. This is likely benign given the long-term stability. A few additional subcentimeter nodules within the left lower lobe are also stable and therefore likely benign. No pneumoperitoneum. No pneumatosis. There are poststernotomy changes. Coronary artery and mitral annulus calcifications are noted. The liver, gallbladder, spleen, adrenal glands, and pancreas are unremarkable. Bilateral renal sinus calcifications may be vascular. There is mild bilateral cortical renal scarring and mild bilateral perinephric edema. This is likely chronic. No ureteral stones. No hydronephrosis. Main portal vein is patent. No retroperitoneal lymphadenopathy. Moderate calcified plaque within the normal caliber abdominal aorta. No pelvic free fluid. A few colonic diverticula. No evidence for acute diverticulitis. No bowel wall thickening or obstruction. Normal appendix. IMPRESSION: 1. No bowel wall thickening or obstruction. 2. No pneumoperitoneum. No pneumatosis. 3. Colonic diverticulosis. No evidence for acute diverticulitis. 4. Bilateral renal sinus calcifications which may be vascular. No ureteral stones. No hydronephrosis. Pending Results Patient Have Any Pending Studies at Discharge: No Discharge Instructions Given to Patient (Per Discharging Provider) Mr Virgen You came to the hospital with rectal bleeding after colonoscopy. Your aspirin was held. Your rectal bleeding stopped. You can resume your aspirin today. You can resume your home warfarin tomorrow evening and ensure follow up with Anticoagulation for testing within the week. You were started on amlodipine for high blood pressure. Please check your BP at home and keep a log for your Primary Doctor as we discussed. It was a pleasure taking care of you. Total Time Total Time Spent Total Time Spent (In Minutes): 45 Total Time Includes: Examination of the Patient, Discharge Planning and Medication Reconciliation
--- NOTE | 2022-02-05 12:24 | Communication Note ---
Date of Service: February 05, 2022 By CMS guidelines, a determination that the admission or continued stay is not medically necessary has been made by a member of the UR committee and a phy sician for this hospital stay, therefore a Code 44 will be completed and the Inpatient admission will be changed to outpatient. Lawson Tse MD Member, Utilization review committee
== END 2022-02-05 15:20 | disposition home or self-care (01) | DRG 920 ==
LOC: ED 22:21 → 2S 02-04 02:29 → SUATTDRO 02-04 02:29 → INTOOBSV 02-04 02:29 → OBSVTOIN 02-04 02:29 → 2S 02-04 04:14

== ENCOUNTER 2024-03-20 08:32 | Observation (INO) ==
--- NOTE | 2024-02-13 15:00 | PAT Medication Instructions ---
Medication Instructions Date of Service February 13, 2024 Home Medications cholecalciferol (vitamin D3) 25 mcg (1,000 unit) tablet (Vitamin D3) 1,000 unit PO QAM aspirin 81 mg chewable tablet 162 mg PO QAM atorvastatin 80 mg tablet 80 mg PO QPM metoprolol tartrate 25 mg tablet 25 mg PO BID omega-3 fatty acids 1,000 mg capsule (Fish Oil Concentrate) 1,000 mg PO QAM omeprazole 20 mg capsule,delayed release 20 mg PO QAM trazodone 50 mg tablet 50 mg PO HS PRN Insomnia warfarin 5 mg tablet 2.5 mg PO WK warfarin 5 mg tablet 5 mg PO 6XWK albuterol sulfate 90 mcg/actuation aerosol inhaler 2 puff inhalation Q4H PRN Shortness Of Breath Or Wheezing ezetimibe 10 mg tablet 10 mg PO QPM lorazepam 1 mg tablet 0.5 mg PO HS PRN Insomnia allopurinol 100 mg tablet 100 mg PO QAM amlodipine 2.5 mg tablet 2.5 mg PO QAM cyanocobalamin (vitamin B-12) 1,000 mcg tablet (Vitamin B-12) 1,000 mcg PO QAM furosemide 20 mg tablet 20 mg PO 3XWK lisinopril 10 mg tablet 10 mg PO QAM MEDICATION INSTRUCTIONS: Continue as directed albuterol sulfate 90 mcg/actuation aerosol inhaler 2 puff inhalation Q4H PRN Shortness Of Breath Or Wheezing (use if needed; BRING TO HOSPITAL) ASK your prescriber and surgeon warfarin 5 mg tablet 2.5 mg PO WK warfarin 5 mg tablet 5 mg PO 6XWK aspirin 81 mg chewable tablet 162 mg PO QAM STOP taking 2 weeks before surgery omega-3 fatty acids 1,000 mg capsule (Fish Oil Concentrate) 1,000 mg PO QAM DO NOT take the morning of surgery lisinopril 10 mg tablet 10 mg PO QAM cholecalciferol (vitamin D3) 25 mcg (1,000 unit) tablet (Vitamin D3) 1,000 unit PO QAM cyanocobalamin (vitamin B-12) 1,000 mcg tablet (Vitamin B-12) 1,000 mcg PO QAM furosemide 20 mg tablet 20 mg PO 3XWK Take morning of surgery With a small sip of water, OTHERWISE NOTHING TO EAT OR DRINK AFTER MIDNIGHT: metoprolol tartrate 25 mg tablet 25 mg PO BID omeprazole 20 mg capsule,delayed release 20 mg PO QAM allopurinol 100 mg tablet 100 mg PO QAM amlodipine 2.5 mg tablet 2.5 mg PO QAM Take evening before surgery atorvastatin 80 mg tablet 80 mg PO QPM ezetimibe 10 mg tablet 10 mg PO QPM lorazepam 1 mg tablet 0.5 mg PO HS PRN Insomnia metoprolol tartrate 25 mg tablet 25 mg PO BID trazodone 50 mg tablet 50 mg PO HS PRN Insomnia Other Notes If you have any questions please call us at [phone] or [phone] or [phone] or [phone]
--- NOTE | 2024-03-01 10:55 | Anesthesiology Consultation ---
Date of Service March 01, 2024 Assessment & Plan (1) Encounter for pre-operative examination: - optimization form to [facility] cardiology re symptoms with PAT testing. Patient was advised to contact [facility] cardiology to see if provider would still want EKG repeated 03/06. - right tooth pain-upcoming dentist appointment. Surgeon's office made aware. - cardiology office visit 01/15/24: "...preoperative cardiac assessment, history of coronary heart disease, CABG, mild aortic stenosis, paroxysmal atrial fibrillation...feeling well without any chest discomfort, shortness of breath, or subjective palpitations...to have a reassessment with regards to orthopedic surgery in March...will have him return for a resting EKG in late February...as long as the patient continues to do well without any new clinical complaints in [sic] his EKG is stable, I anticipate recommending proceeding to knee surgery with an estimated low risk of perioperative cardiac complication...return in about 1 year..." - Outpatient joint assessment: Patient is currently scheduled for inpatient pathway. If re-evaluated and patient/surgeon requests outpatient pathway, patient is not an advised candidate for outpatient joint program from anesthesia standpoint. Chart Review Chart Review: Pending: Refer to Additional Notes / Consult section and Patient seen in Pre Admission Testing Teaching & Discussion Pre-Anesthesia Teaching/Discussion Notes: Instructed NPO after midnight before surgery, except medications with 15 cc of water. Medication instructions provided according to the PAT guidelines. History Surgery Operation Date: 03/20/24 07:00 Proposed Procedures p Right Total Knee Arthroplasty - Rafael Keating MD Height/Weight Height: 5 ft 9 in Weight: 117 kg Allergies Allergy/AdvReac Type Severity Reaction Status Date / Time No Known Allergies Allergy Unknown Verified 02/13/24 13:15 Medications Home Medications Medication Instructions Recorded Confirmed Last Taken cholecalciferol (vitamin D3) 25 1,000 unit PO QAM 11/01/18 02/13/24 12/24/18 14:00 mcg (1,000 unit) tablet (Vitamin D3) aspirin 81 mg chewable tablet 162 mg PO QAM 10/28/20 02/13/24 Unknown atorvastatin 80 mg tablet 80 mg PO QPM 10/28/20 02/13/24 Unknown metoprolol tartrate 25 mg tablet 25 mg PO BID 10/28/20 02/13/24 03/22/23 05:15 omega-3 fatty acids 1,000 mg 1,000 mg PO QAM 10/28/20 02/13/24 Unknown capsule (Fish Oil Concentrate) omeprazole 20 mg capsule,delayed 20 mg PO QAM 10/28/20 02/13/24 03/22/23 05:15 release trazodone 50 mg tablet 50 mg PO HS PRN Insomnia 10/28/20 02/13/24 Unknown warfarin 5 mg tablet 2.5 mg PO WK 10/28/20 02/13/24 03/21/23 warfarin 5 mg tablet 5 mg PO 6XWK 10/28/20 02/13/24 03/21/23 albuterol sulfate 90 mcg/actuation 2 puff inhalation Q4H PRN 02/04/22 02/13/24 Unknown aerosol inhaler Shortness Of Breath Or Wheezing ezetimibe 10 mg tablet 10 mg PO QPM 02/04/22 02/13/24 Unknown lorazepam 1 mg tablet 0.5 mg PO HS PRN Insomnia 02/04/22 02/13/24 Unknown allopurinol 100 mg tablet 100 mg PO QAM 03/08/23 02/13/24 Unknown amlodipine 2.5 mg tablet 2.5 mg PO QAM 03/08/23 02/13/24 03/22/23 05:15 cyanocobalamin (vitamin B-12) 1,000 mcg PO QAM 03/08/23 02/13/24 Unknown 1,000 mcg tablet (Vitamin B-12) furosemide 20 mg tablet 20 mg PO 3XWK 03/08/23 02/13/24 Unknown lisinopril 10 mg tablet 10 mg PO QAM 02/13/24 02/13/24 Unknown Past Medical History Medical History (Updated 03/01/24 @ 14:33 by Tram Sparks PA-C) Anxiety Aortic stenosis mild CAD (coronary artery disease) CABG x 3 Degenerative disc disease Exertional angina "thinks it may be more of a muscular problem, but 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 Exercise / Class Metabolic Activity II 4-5 Yardwork/Stairs/Walk up hill (shortness of breath with one flight of stairs which he attributes to knee pain, denies change or worsening; denies chest discomfort) Past Family History Family History Brother Family history of diabetes mellitus Mother Family history of diabetes mellitus Brother Family hx of colon cancer Other No family history of adverse response to anesthesia Past Surgical History Surgical History History of arthroscopy of right knee History of cardiac cath 1994 @ [facility] or [facility], no stents 01/2020 @ [facility] sent for Triple Bypass @[facility]; f/u jessy mau History of carpal tunnel release lt/rt History of colonoscopy W/ POLYPECTOMY History of esophagogastroduodenoscopy (EGD) History of inguinal hernia repair right History of repair of rotator cuff right History of tooth extraction History of umbilical hernia repair S/P triple vessel bypass 01/2020 @ [facility] Past Anesthesia History No Hx of Anesthesia Complications and No Family Hx of Anesthesia Complications History of PONV No Hx of PONV and No Hx of Motion Sickness Social History Smoking Status: Former smoker tobacco type: smokeless tobacco Smoking cigarettes per day: years ago, only occasional Do You Dip or Chew Tobacco: No (quit 40+ years ago; advised) Hx Alcohol Use: Yes Alcohol type: beer alcohol intake frequency: other Alcohol Intake Frequency Comment: ~1-2 drinks/week Hx Substance Use: No substance use type: does not use Review of Systems Patient denies fever, chills, cough, wheezing, or palpitations. Physical Exam Vital Signs Vitals BP 120/72 P 54 TEMP 97.9 SP02 95% on RA RESP 18 Physical Patient resting comfortably in chair in no acute distress, alert and oriented, responding appropriately throughout visit Full cervical extension range of motion without pain TMD < 3 finger breadths Mallampati Score 3 Dentition: upper implant-also experiencing right lower tooth pain-has soon dentist appt; denies chipped or loose teeth, caps/crowns, or bridges Lungs: normal respiratory effort. Good air movement, clear throughout to auscultation, no adventitious breath sounds Cardiac: regular rate and rhythm, no murmurs noted Carotid arteries: negative bruit bilat Lab Results Anesthesia Preop Results Results Anesthesia Widget: WBC 5.46 K/ul (4.8-10.8) 03/01/24 Hgb 12.8 g/dl (14.0-18.0) L 03/01/24 Hct 37.3 % (42.0-52.0) L 03/01/24 Plt 200 K/uL (130-400) 03/01/24 Na 137 mmol/L (136-145) 03/01/24 K 4.2 mmol/L (3.5-5.1) 03/01/24 Cl 104 mmol/L (98-107) 03/01/24 CO2 25 mmol/L (21-32) 03/01/24 BUN 28 mg/dl (6-23) H 03/01/24 Creat 1.15 mg/dl (0.6-1.4) 03/01/24 Glucose Level 96 mg/dl (70-99(Fasting)) 03/01/24 PT 21.3 Seconds (9.0-12.0) H 03/01/24 PTT 36 Seconds (21-31) H 03/01/24 INR 2.1 (0.9-1.1) H 03/01/24 Blood Type O Positive 03/01/24 Antibody Screen NEGATIVE 03/01/24 Testing Electrocardiogram Date: 03/01/24 Sinus bradycardia with 1st degree AV block, rate 47 bpm Chest X-Ray Date: 03/01/24 No acute chest disease. Echocardiogram Date: 10/10/23 EF 55-59% Sinus bradycardia Normal LV wall motion Mild cLVH Grade II diastolic dysfunction Moderately enlarged LA Moderately calcified with focal calcification of the non coronary cusp Mild aortic stenosis (TRAN 1.3 cm2, mean PG 13 mmHg) Mild tricuspid regurgitation Borderline enlarged aortic root and proximal ascending aorta (3.8/4.0 cm) Stress Test Date: 10/11/23 Normal without evidence of inducible ischemia or myocardial scar MPHR 67% EF > 70% Cardiac Catheterization Date: 01/27/20 Left main: Moderately large caliber vessel with 50% narrowing at ostium and 90% hazy stenosis distally at its bifurcation Left anterior descending: Type III in distribution with modest distal vessel. It gives rise to a small bifurcating first diagonal and a small second diagonal in its midportion and continues to be on the apex. Within the left anterior descending there is a 50% narrowing at its origin and an 80% narrowing after the second diagonal branch Left circumflex: Large dominant vessel giving rise to a small obtuse marginal then along the AV groove to large posterior lateral branches in the posterior descending artery. There is moderate ectasia in the proximal vessel and diffuse luminal irregularities but no high-grade obstruction Right coronary artery: Small nondominant vessel consisting of 2 small right ventricular branches Critical coronary artery disease with left dominant anatomy including 90% distal left main stenosis
--- NOTE | 2024-03-15 07:28 | History & Physical Report ---
Date of Service March 15, 2024 Assessment & Plan (1) Right knee DJD: 74-year-old gentleman status post a left partial knee replacement in the past without underlying coronary artery disease status post bypass grafting with advanced right knee DJD. He is got tricompartment disease. He is failed conservative treatment would like to proceed with surgical treatment. Plan: We are going to take him to the operating room and do a right total knee replacement but the risks and benefits of this procedure explained and he understands. He has been seen by his dental cream maker and cleared from the cardiac standpoint. The left to hold his Coumadin 5 days preop. Will begin this immediately postop. He is planned to be discharged to home using home health. Will be using Coumadin for DVT prophylaxis. (2) Status post left partial knee replacement: (3) Hypertension: (4) CAD (coronary artery disease): (5) Obesity: (6) Hyperlipidemia: History of Present Illness Chief Complaint: . Persistent, progressive right knee pain and discomfort. Primary Care Provider: Cj Irby MD . The patient is a 74-year-old gentleman long-term patient of [facility] who now presents for surgical treatment of his right knee. He has a long history of knee problems and we did a left partial knee replacement on him back in 2019. He has done quite well from this. Over the past several years he has developed progressive right knee pain discomfort. We have been injecting his knee on a regular basis which has become less successful. He now like to proceed with right knee replacement. Of note he does have history of cardiac bypass surgery in 2020. He follows by Dr. Wallace and been cleared for surgery. Allergies Allergy/AdvReac Type Severity Reaction Status Date / Time No Known Allergies Allergy Unknown Verified 02/13/24 13:15 Home Medications Medication Instructions Recorded Confirmed Type cholecalciferol (vitamin D3) 25 1,000 unit PO QAM 11/01/18 02/13/24 History mcg (1,000 unit) tablet (Vitamin D3) aspirin 81 mg chewable tablet 162 mg PO QAM 10/28/20 02/13/24 History atorvastatin 80 mg tablet 80 mg PO QPM 10/28/20 02/13/24 History metoprolol tartrate 25 mg tablet 25 mg PO BID 10/28/20 02/13/24 History omega-3 fatty acids 1,000 mg 1,000 mg PO QAM 10/28/20 02/13/24 History capsule (Fish Oil Concentrate) omeprazole 20 mg capsule,delayed 20 mg PO QAM 10/28/20 02/13/24 History release trazodone 50 mg tablet 50 mg PO HS PRN Insomnia 10/28/20 02/13/24 History warfarin 5 mg tablet 2.5 mg PO WK 10/28/20 02/13/24 History warfarin 5 mg tablet 5 mg PO 6XWK 10/28/20 02/13/24 History albuterol sulfate 90 mcg/actuation 2 puff inhalation Q4H PRN 02/04/22 02/13/24 History aerosol inhaler Shortness Of Breath Or Wheezing ezetimibe 10 mg tablet 10 mg PO QPM 02/04/22 02/13/24 History lorazepam 1 mg tablet 0.5 mg PO HS PRN Insomnia 02/04/22 02/13/24 History allopurinol 100 mg tablet 100 mg PO QAM 03/08/23 02/13/24 History amlodipine 2.5 mg tablet 2.5 mg PO QAM 03/08/23 02/13/24 History cyanocobalamin (vitamin B-12) 1,000 mcg PO QAM 03/08/23 02/13/24 History 1,000 mcg tablet (Vitamin B-12) furosemide 20 mg tablet 20 mg PO 3XWK 03/08/23 02/13/24 History lisinopril 10 mg tablet 10 mg PO QAM 02/13/24 02/13/24 History Past Med/Surg History Problem List Right carpal tunnel syndrome Hypertension Lower gastrointestinal hemorrhage (Acute) 02/04/22 Pain of left great toe 01/27/21 Contusion of right foot 01/27/21 Hematoma 01/27/21 Exertional angina 01/27/20 Rotator cuff tear, left Tear of biceps tendon 10/31/19 Left shoulder pain 10/31/19 Peroneal tendonitis of right lower extremity 05/09/19 Status post left partial knee replacement 12/2018 Right knee DJD Encounter for pre-operative examination Erythema migrans (Lyme disease) (Acute) 05/14/14 Medical History Aortic stenosis mild History of phlebitis (~1980) right leg CAD (coronary artery disease) CABG x 3 Gout denies recent flare Exertional angina "thinks it may be more of a muscular problem, but dental cream maker is aware" patient states is intermittent-denies today/change or worsening Lower gastrointestinal hemorrhage hx, 2021, evening of his colonoscopy and had to stay overnight for observation History of COVID-19 2021--mild symptoms, no symptoms now Obesity Degenerative disc disease Osteoarthritis Fatty liver pt denies GERD (gastroesophageal reflux disease) controlled, stable per pt Hard of hearing right Anxiety Hyperlipidemia HTN (hypertension) controlled, stable per pt Sleep apnea CPAP Surgical History S/P triple vessel bypass 01/2020 @ [facility] History of tooth extraction History of inguinal hernia repair right History of umbilical hernia repair History of carpal tunnel release lt/rt History of arthroscopy of right knee History of repair of rotator cuff right History of esophagogastroduodenoscopy (EGD) History of colonoscopy W/ POLYPECTOMY History of cardiac cath 1994 @ [facility] or [facility], no stents 01/2020 @ [facility] sent for [facility] Bypass @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 Physical Exam . Physical examination reveals a pleasant middle-aged gentleman. Looks to be in pretty good health. Examination of the right knee reveal patient ambulates independently. Is got varus alignment to his knee. He is got bony hypertrophy medially. His range of motion is 5 degrees short of full extension to 120 degrees of flexion. There is no instability. No particular pain with hip motion. He is neurovascularly intact. Constitutional WD/WN, vitals as above Respiratory normal respiratory effort, lungs clear to auscultation Cardiovascular RRR, no murmur, no edema Gastrointestinal (Abdomen) normal bowel sounds, soft, nontender, no hepatosplenomegaly Results & Data Results & Data Laboratory Results . Diagnostic Findings . X-rays of the right knee reviewed. Shows advanced right knee DJD. Is got complete loss of his medial joint space. Got significant lateral compartment disease as well along with some chondrocalcinosis. PG Care Time/CCT Total # of Minutes Spent Total Time Spent with Patient: Total time spent is greater than 50% in coordination of care (as documented) at patient's floor/unit and/or counseling patient: Coding Level of Care Code None Diagnoses Right knee DJD M17.11 Status post left partial knee replacement Z96.652 Hypertension I10 CAD (coronary artery disease) I25.10 Obesity E66.9 Hyperlipidemia E78.5
[~2024-03-20 08:32] MED LIST changes: -ACETAMINOPHEN 500 MG TAB PO SCH; -BUPIVACAINE 0.25% 30 ML VIAL ONE; -BUPIVACAINE LIPOSOME/PF 266 MG, BUPIVACAINE/EPINEPHRINE 50 ML, SODIUM CHLORIDE 0.9% 30 ... INFIL SCH; -CEFAZOLIN 3000MG 72.5 ML IV SCH; -FAMOTIDINE 20 MG TAB PO SCH; -GABAPENTIN 300 MG CAP PO SCH; -LACTATED RINGER'S 1,000 ML IV SCH; -LR 500ML BOLUS, THEN 15ML/HR IV SCH; -METOCLOPRAMIDE HCL 10 MG TABLET PO SCH; +ROPIVACAINE 0.5% 5 MG/ML 30 ML VIAL ONE; -TRANEXAMIC ACID 1,000 MG **IV Intra-op IV SCH
--- NOTE | 2024-03-20 08:47 | History & Physical Bridge Note ---
Date of Service March 20, 2024 History & Physical Bridge Note I have examined the patient, reviewed the History & Physical and in the interval since the performance of the History & Physical I have noted the following changes of clinical significance: no changes noted
[2024-03-20] MEDS ORDERED: MIDAZOLAM HCL 1 MG/ML 2ML VIAL ONE (09:23)
[2024-03-20] MEDS ORDERED: PROPOFOL IV EMULSION 10 MG/ML 20 ML VIAL IV ONE ×4 (09:25→12:00)
[2024-03-20] MEDS: ACETAMINOPHEN 500 MG TAB PO SCH ×2 (09:27→15:28)
[2024-03-20] MEDS: METOCLOPRAMIDE HCL 10 MG TABLET PO SCH (09:27)
[2024-03-20] MEDS: LR 500ML BOLUS, THEN 15ML/HR IV SCH (09:27)
[2024-03-20] MEDS: CeleBREX 200 MG CAP PO SCH (09:27)
[2024-03-20] MEDS: LR 60ML/HR IV SCH (09:28)
[2024-03-20] MEDS: FAMOTIDINE 20 MG TAB PO SCH (09:28)
[2024-03-20] MEDS: dexAMETHasone**PF** 10 MG/ML VIAL ONE (09:28)
[2024-03-20] MEDS: DEXAMETHASONE SOD INJ 4 MG/ML VIAL IV STA (09:34)
[2024-03-20 09:39] LABS: INR 1.1 (0.9-1.1); Partial Thromboplastin Time 28 Seconds (21-31); Prothrombin Time 11.9 Seconds (9.0-12.0)
[2024-03-20] MEDS ORDERED: ONDANSETRON INJ 2 MG/ML 2 ML VIAL IV PRN ×2 (10:13→14:13)
[2024-03-20] MEDS ORDERED: ePHEDrine sulfate 50 MG/ML AMP IV PRN (10:13)
[2024-03-20] MEDS ORDERED: fentaNYL citrate PF 100 MCG/2 ML VIAL IV PRN (10:13)
[2024-03-20] MEDS ORDERED: ATROPINE SULFATE 0.1 MG/ML 10ML SYR IV PRN (10:13)
[2024-03-20] MEDS ORDERED: HYDROmorphone INJ 1 MG/ML SYRINGE IV PRN (10:13)
[2024-03-20] MEDS: ceFAZolin 2000MG 2,000 MG/15 ML SYR IV SCH ×2 (10:58→18:20)
[2024-03-20] MEDS: ORTHO JOINT ANESTHETIC ONE (11:24)
[2024-03-20] MEDS: ROPIV 0.5% 246mg, Ketorolac 30mg, EPINEPHrine 0.5mg in NSS INFIL SCH (11:24)
[2024-03-20] MEDS: TRANEXAMIC ACID 1,000 MG **IV Intra-op IV SCH (11:45)
--- NOTE | 2024-03-20 12:47 | Operative Report ---
PG Post Operative Report Pre & Post Diagnosis Operation Date: 03/20/24 10:40 Pre-Op Diagnosis: Right Knee Degenerative Joint Disease Post-Op Diagnosis: Right Knee Degenerative Joint Disease I identified the patient and participated in the time-out.: Yes Procedure Operation Date: 03/20/24 10:40 Actual Procedures p Right Total Knee Arthroplasty(Right) - Rafael Keating MD Surgeon Rafael Keating MD Drop Machine Operator Lizandro Resendiz PA-C Estimated Blood Loss 50 Findings Consistent with Post-Op Diagnosis Operative findings reveal advanced right knee tricompartment DJD. He had pretty extensive and diffuse changes in all 3 compartments most severe in the medial side. Moderate-sized joint effusion. He had about a 10 to 15 degree flexion contracture. Specimens Right knee sent for pathology. Anesthesia Type Spinal MAC Complications none Disposition Accompanied Patient To Recovery: No Indications Patient is a 74-year-old gentleman whose had a 7-year history of increasing right knee pain discomfort. Has been through extensive conservative treatment over the years which became less successful. X-rays showed advanced knee arthritis. He elected proceed with total knee arthroplasty. Description of Procedure Operative implants consist of: 1. Biomet Vanguard size 75 right posterior stabilized femoral component. 2. Biomet size 79 tibial tray. 3. 10 mm post stabilized polyethylene insert. 4. 34 x 8 and half all poly patella. The patient was taken to the operating, identified, placed on the operating table in the supine position. All contact areas were appropriately padded. IV antibiotics tried by anesthesia team. A spinal anesthetic and adductor canal block had been Weida in the holding area. Of right thigh tourniquet was then placed. The right lower extremity was then prepped and draped in the usual sterile fashion. The right leg was elevated and exsanguinated with use of an Esmarch and turn was placed at 300 mmHg. An anterior approach to the right knee was then performed to longitudinal incision centered over the patella. Sharp dissection was Through subcutaneous tissue down the extensor mechanism. A medial parapatellar arthrotomy incision was made. Some subperiosteal dissection was carried out medially. The fat pad was resected from Neath patella tendon. Lateral patellofemoral ligament was released. Patella subluxated laterally and the knee was flexed. The osteophytes taken off distal femur. The ACL and PCL were then released from distal femur the tibia subluxated anteriorly. The external treatment LYMErix then placed on the anterior face the tibia and adjusted 14 mm medially. Proximal tibial cut was made essentially flush with the most efficient aspect of the posterior medial tibial plateau. Some osteophytes taken off medially. The tibia was then sized to a size 79. Attention drawn the femur. The distal femur was entered with a sharp drill. Intramedullary canal was suction. A right 6 degree valgus cutting guide was placed but the distal femoral cutting block was pinned in place. This femoral cut was made take an additional 3 mm of bone off distal femur. The femur was then sized to a size 75. We downsize this almost an entire size. He is medial/lateral dimensions are smaller than the AP dimensions. The AP cutting block was then placed parallel to the epicondylar axis which was 4 degrees of external rotation. The anterior cut, anterior chamfer, posterior cut, posterior chamfer cuts were made. The box cutting guide was placed and just slight lateral and the box cut was made. The knee was flexed. The remnants of the medial and lateral menisci were excised. The osteophytes taken off the posterior aspect the femur. A trial femoral component was placed. The tibial tray was pinned Olivia external rotation and the drill and stem punch were used to create defect in proximal tibia for the tibial tray. Knee was then trialed and a 10 mm insert fit most appropriately. Attention drawn the patella. Patella was cleaned of all soft tissues. Patella thickness measured 26 mm and was cut down to 16. It was sized to a size 34 patella. The lug holes were drilled for 34 patella. The lateral osteophytes removed. The patella button was placed. Knee was taken through range of motion patella tracked nicely with no thumbs test. Attention then drawn toward placement permanent components. All trial components removed. Bone plug was placed in the distal femur limit blood loss. A double batch Palacos G cement was mixed. A Biomet Vanguard size 75 right posterior stabilized femoral component, a size 79 tibial tray, a 10 mm posterior stabilized polyethylene insert, and a 34 x 8 and half all poly patella then cemented in place. The knee was brought out into full extension till cement hardened. A final cement check was then performed. Pericapsular tissues were injected with total 100 cc of Ortho mix. Patient did receive 1 g tranexamic acid. The tourniquet was then let down for final tourniquet time of 55 minutes. Hemostasis assured use electrocautery. Extensor Metros then closed with combination 1 PDS suture and 1 Vicryl suture in a [id number] fashion. Extensor Meclomen checked found to be intact through the subcutaneous tissues then closed with 2 Dexon suture in a buried interrupted fashion the skin was closed skin flakito. Leg was then cleaned and dried and a sterile dressing with Xeroform, 4 fours, sterile cast padding, Carlton bandage were applied. Patient then transferred to the recovery room in stable condition. Patient tolerated procedure well and there were no complications. Lizandro Resendiz, my physician internal medicine physician assistant, was present for the entire procedure. His assistance was essential and required for appropriate patient positioning, prepping and draping, surgical exposure, performing the technical details of the operation, placement the implants, closure of the wound, and placement of the sterile bandage. I attest to the content of the Intraoperative Record and any orders documented therein. Any exceptions are noted below.
--- NOTE | 2024-03-20 13:07 | XRay Report ---
XR knee RT 1 or 2V routine CLINICAL HISTORY: Surgical Post Op COMPARISON: Right knee radiographs January 18, 2024. FINDINGS: Alignment of the total right knee arthroplasty is anatomic. There is no periprosthetic fra cture or unexpected radiopaque foreign body. There are skin flakito. IMPRESSION: Expected findings following total right knee arthroplasty. ACT 112: Negative or not required by law. Electronically signed by: Aftab James M.D. 03/20/2024 1:06 PM
[2024-03-20] MEDS ORDERED: NALOXONE HCL 0.4 MG/1 ML VIAL/CARP IV PRN (14:13)
[2024-03-20] MEDS ORDERED: MAGNESIUM HYDROXIDE SUSP 30 ML UDC PO PRN (14:13)
[2024-03-20] MEDS ORDERED: LORazepam 0.5 MG TAB PO PRN (14:13)
[2024-03-20] MEDS ORDERED: ALUMINUM/MAGNESIUM SUSP 30 ML UDC PO PRN (14:13)
[2024-03-20] MEDS ORDERED: METOCLOPRAMIDE HCL INJ 5 MG/ML 2 ML VIAL IV PRN (14:13)
[2024-03-20] MEDS ORDERED: ALBUTEROL HFA 8 GM INHALER INH PRN (14:13)
[2024-03-20] MEDS ORDERED: bisacodyL 10 MG SUPP PR PRN (14:13)
[2024-03-20] MEDS ORDERED: HYDROmorphone INJ 0.5 MG/0.5 ML SYR IV PRN (14:13)
--- OUTSIDE RECORDS SUMMARY | 2024-03-20 14:55 | External Medical Summary | Summary of Care ---
Author Name Unknown Organization [facility] Address [address] [facility] [place] [address] Phone [phone] Care Team Providers Care Licensing Representative Name Role Phone Cj Irby MD Primary Care Provider [phone] Reason for Visit * Reason Onset Date Comments Test Results 03/07/2024 Encounter Details Date Type Department Care Team (Late st Contact Info) Description 03/07/2024 Telephone Cardiology, [facility] [address] [place] [address] Rafael Damon, [address] [place] [address] Test Results Allergies No known active allergiesdocumented as of this encounter (statuses as of 03/13/2024) Medications Medication Sig Dispensed Refills Start Date End Date Status VITAMIN D 1000 UNIT PO CAPSIndications:Vi tamin D deficiency 1 capsule daily 30 Cap 11 01/04/2011 Active Vitamin B-12 1000 MCG Oral TabletIndications: B12 deficiency Take by mouth 1 Tablet in the morning. 100 Tablet 3 09/28/2021 Active Aspirin Low Dose 81 MG Oral Tablet Chewable (aspirin)Indicatio ns:Paroxysmal atrial fibrillation (HCC),CAD (coronary artery disease) TAKE 2 TABLETS BY MOUTH EVERY DAY 180 Tablet 3 08/09/2022 Active Meclizine HCl 25 MG Oral Tablet (Antivert)Indicati ons:Benign paroxysmal vertigo, unspecified laterality Take 1 Tablet by mouth 3 times a day as needed for Dizziness. 30 Tablet 1 12/12/2022 Active Ezetimibe 10 MG Oral Tablet (Zetia)Indications :Dyslipidemia, goal LDL below 70 TAKE 1 TABLET BY MOUTH EVERY DAY 90 Tablet 3 05/29/2023 Active Atorvastatin Calcium 80 MG Oral Tablet (Lipitor) TAKE 1 TABLET BY MOUTH EVERY DAY EVERY AFTERNOON 90 Tablet 3 06/07/2023 Active amLODIPine Besylate 2.5 MG Oral Tablet (Norvasc) TAKE 1 TABLET BY MOUTH EVERY DAY IN THE MORNING 90 Tablet 3 08/27/2023 Active Omeprazole 20 MG Oral Capsule Delayed Release (PriLOSEC)Indicati ons:Boateng's esophagus without dysplasia Take 1 capsule by mouth once daily 90 Capsule 3 08/30/2023 Active Furosemide 20 MG Oral Tablet (Lasix)Indications :HTN, goal below 130/80,SOB (shortness of breath) TAKE 1 TABLET BY MOUTH ONCE A DAY ON MONDAY, MONDAY, AND MONDAY ONLY. 90 Tablet 3 10/23/2023 Active Warfarin Sodium 5 MG Oral Tablet (Coumadin)Indicati ons:Paroxysmal atrial fibrillation (HCC) TAKE 1 TABLET BY MOUTH DAILY DIRECTED BY ANTICOAGULATION CLINIC 90 Tablet 3 11/02/2023 Active LORazepam 1 MG Oral Tablet (Ativan)Indication s:Anxiety disorder, unspecified type TAKE 1/2 - 1 TABLET BY MOUTH DAILY NEEDED FOR ANXIETY 30 Tablet 12/06/2023 Active Additional Information Patient not taking.Reported on 01/15/2024 Fish Oil 300 MG Oral Capsule Take by mouth. Active Allopurinol 100 MG Oral Tablet (Zyloprim)Indicati ons:Gouty arthropathy TAKE 1 TABLET BY MOUTH EVERY DAY IN THE MORNING 90 Tablet 1 12/08/2023 Active Lisinopril 10 MG Oral Tablet (Prinivil) Take 1 Tablet by mouth in the morning. 90 Tablet 3 01/15/2024 Active Metoprolol Tartrate 25 MG Oral Tablet (Lopressor)Indicat ions:HTN, goal below 140/90 TAKE 1 TABLET BY MOUTH EVERY 12 HOURS 180 Tablet 3 02/02/2024 Active traZODone HCl 50 MG Oral Tablet (Desyrel) TAKE 1 TO 2 TABLETS BY MOUTH AT BEDTIME 180 Tablet 3 03/06/2024 Active documented as of this encounter (statuses as of 03/13/2024) Active Problems Problem Noted Date Diagnosed Date Nonrheumatic aortic valve stenosis 07/31/2023 SHILOH (generalized anxiety disorder) 05/12/2022 Gouty arthropathy 05/12/2022 Prediabetes 09/13/2021 Overview: Per Prediabetes protocol Chronic kidney disease, stage 3a 09/15/2020 Overview: Per CKD protocol S/P CABG x 3 02/02/2020 Paroxysmal atrial fibrillation 02/02/2020 Coronary artery disease invo lving jena coronary artery of jena heart without angina pectoris 01/27/2020 Boateng's esophagus without dysplasia 07/22/2019 Seasonal affective disorder 10/18/2016 Meniere syndrome 08/18/2015 Lumbar degenerative disc disease 05/02/2014 Severe obstructive sleep apnea 10/04/2013 Overview: Auto CPAP 8 cwp. [facility] Vitamin D deficiency 08/12/2011 HTN, goal below 130/80 06/02/2010 Obesity, Class II, BMI 35-39.9, isolated (see ac tual BMI) 10/19/2009 Overview: Per Obesity Protocol, #19 Dyslipidemia 04/20/2009 Overview: Per Lipid Taxonomy. Generalized osteoarthritis 07/27/2001 documented as of this encounter (statuses as of 03/13/2024) Resolved Problems Problem Noted Date Diagnosed Date Resolved Date Hypertensive kidney disease with stage 3a chronic kidney disease 05/18/2020 05/12/2022 Overview: Per CKD protocol Atherosclerosis of aorta 05/13/202009/2022 Phlebitis of right arm 02/12/202005/12 Postoperative anemia due to acute blood loss 0 05/12/2022 Unstable angina 01/28/2020 05/13/2020 Class 2 severe obesity due t o excess calories with serious comorbidity and body mass index (BMI) of 39.0 to 39.9 in adult 03/18/2019 3 Hypertensive kidney disease with stage 3 chronic kidney disease 03/18/2019 05/21/2020 Overview: Per CKD protocol Calcified granuloma of lung 07/11/2017 07/13/2018 Anxiety 10/23/2014 05/12/2022 Dyslipidemia, goal LDL below 70 01/31/2012 05/12/2022 Overview: ICD-10 update of inactive term ADVANCE DIRECTIVE INFORMATION 01/25/2005 07/12/2017 Overview: No, Advance Directive brochure offered , patient declined. CHEST [id number] 11/25/200411/2017 Lung field abnormal 09/24/2004 07/07/19 19 BENIGN NEOPLASM LG BOWEL 05/08/2000 COUGH SECONDARY TO POST-NASAL DRIP 11/16/1999 10/18/2016 Mixed dyslipidemia 9 Overview: Per Lipid Taxonomy. documented as of this encounter (statuses as of 03/13/2024) Immunizations Name Administration Dates Next Due COVID-19 mRNA, LNP-s, No Pre serve, 2-Dose Series (Moderna) 06/26/2020,05/29/2020 Pneumococcal Conjugate Vacc, 13 Valent (Prevnar) 04/15/2015 Pneumococcal Polysaccharide PPV23 (Pneumovax) 03/17/2014,04/10/2013 Seasonal Influenza Vac., MDV , IM, 0.5 mL (Fluzone) 01/22/2015,02/06/2014,01/22/2013,01/07,03/06/2011,06/30/2008(Deferred : Patient Refused) Seasonal Influenza, High Dos e, Trivalent, PF, IM (Fluzone HD) 01/31/2024 Seasonal Influenza, PF, 6 M & above, IM , (FluLaval or Fluzone) 01/14/2020,01/14/2019,01/12/2018,01/0701/15/2020 Seasonal Influenza, Quadriva lent Hd (Fluzone Hd) 01/12/2023,02/10/2022,01/18/2021 Seasonal Influenza, Quadriva lent, No Preserve, IM 03/11/2016 TD - Tetanus/Diptheria (ADULT) 07/07/2000 TD, Preservative Free 10/15/2020 TDAP, Age 7 and older, IM (Adacel) 09/08/2010 Varicella Zoster Vaccine (Adult) 11/10/2011 documented as of this encounter Social History Tobacco Use Types Packs/Day Years Used Date Smoking Tobacco: Never Passive Smoke Exposure: Never Smokeless Tobacco: Former Chew Quit: 12/10/1979 Comments:Chewed 35 years ago . Alcohol Use Standard Drinks/Week Comments Yes 0 (1 standard drink = 0.6 oz pur e alcohol) on occasion PHQ-2 Answer Date Recorded PHQ Adult Total Score 0 10/24/2023 Hunger Vital Sign Answer Date Recorded Within the past 12 months, y ou worried that your food would run out before you got the money to buy more. Patient declined Within the past 12 months, t he food you bought just didn't last and you didn't have money to get more. Patient declined Childcare Answer Date Recorded Do you feel overwhelmed with taking care of a child, family member or friend? No 10/24/2023 Does your family need help f inding childcare? (Household - for ages 0-17 years) Not on file 10/24/2023 Clothing Answer Date Recorded Have you been unable to get clothing when it was really needed? No 10/24/2023 Is your family able to get c lothes or diapers when needed? (Household - for ages 0-17 years) Not on file 10/24/2023 Personal Safety Answer Date Recorded Do you feel unsafe or have concerns for your saf ety? No 10/24/2023 Do you have concerns for you r family's safety? (Household - for ages 0-17 years) Not on file 10/24/2023 Utilities Answer Date Recorded Do you have trouble paying y our heating, water, or electric bill? No 10/24/2023 Is your family able to pay t he heat, water, or electric bill? (Household - for ages 0-17 years) Not on file 10/24/2023 Does your family have access to good internet? (Household - for ages 0-17 years) Not on file 10/24/2023 Employment Status Answer Date Recorded Are you unemployed or without regular income? No 10/24/2023 Does the household have a re gular source of income? (Household - for ages 0-17 years) Not on file 10/24/2023 Social Connections Answer Date Recorded How often do you feel lonely or isolated from th ose around you? Never 10/24/2023 Financial Resource Strain Answer Date R ecorded Do you have any trouble payi ng for your medications, or do you think you might in the future? No 10/24/2023 Does your family have troubl e paying for medicine? (Household - for ages 0-17 years) Not on file 10/24/2023 Transportation Needs Answer Date Record ed Do you have trouble getting a ride to medical visits or work? (Adult - for ages 18 years and over) Not on file 10/24/2023 Does your family have a hard time getting a ride to doctors visits? (Household - for ages 0-17 years) Not on file 10/24/2023 Has lack of transportation k ept you from medical appointments, meetings, work, or from getting things needed for daily living? Check all that apply. No 10/24/2023 Do you (or your family) have trouble finding or paying for a ride (transportation)? (Household - for ages 0-17 years) Not on file 10/24/2023 Housing Stability Answer Date Recorded Do you currently live in a s helter or have no steady place to sleep at night? No 10/24/2023 Do you think you are at risk of becoming homeless? (Adult - for ages 18 years and over) Not on file 10/24/2023 Does your family worry about paying for your home or becoming homeless? (Household - for ages 0-17 years) Not on file 0 10/24/2023 Are you homeless or worried that you might be in the future? No 10/24/2023 Are you (or your family) he eless or worried that you might be in the future? (Household - for ages 0-17 years) Not on file Food Insecurity Answer Date Recorded Do you need food for this week? No 10/24/2023 Are you able to get enough f ood for your family? (Household - for ages 0-17 years) Not on file 10/24/2023 Does your family need food t his week? (Household - for ages 0-17 years) Not on file 10/24/2023 Do you always have enough fo od for your family? (Household - for ages 0-17 years) Not on file 10/24/2023 Sex and Gender Information Value Date Recorded Sex Assigned at Male 09/04/2018 7:32 AM EDT Gender Identity Male 09/04/2018 7:32 AM EDT Sexual Orientation Straight 09/04/2018 7: 32 AM EDT Job Start Date Occupation Industry Not on file Not on file Not on file documented as of this encounter Functional Status Functional Status Response Date of Assess ment Are you deaf or do you have serious difficulty h earing? No 01/28/2020 Are you blind or do you have serious difficulty seeing, even when wearing glasses? No 01/28/2020 Do you have serious difficul ty walking or climbing stairs? (5 years old or older) No 01/30/2020 Do you have difficulty dress ing or bathing? (5 years old or older) No 01/28/2020 Because of a physical, menta l, or emotional condition, do you have difficulty doing errands alone such as visiting a doctor s office or shopping? (15 years old or older) No 01/28/20 20 Cognitive Status Response Date of Assessm ent Because of a physical, menta l, or emotional condition, do you have serious difficulty concentrating, remembering, or making decisions? (5 years old or older) No 01/28/2020 documented as of this encounter Miscellaneous Notes * Telephone Encounter - Tunde Man LPN - 03/13/2024 9:46 AM EST Patient had repeat lab work and spoke to Dr. Damon on 03/11/24. Plan discussed with the patient. Questions answered to his satisfaction. Rafael Damon, * Telephone Encounter - Tunde Man LPN - 03/08/2024 9:52 AM EDT Sent patient a Drill Map message to make aware. * Telephone Encounter - Rafael Damon DO - 03/07/2024 2:06 PM EDT Cardiology nursing: Notify patient that I reviewed his lab work performed on 03/06/2024. His cholesterol looks great, LDL 68 which is less than his goal of less than 70. He should continue his present treatment. His chemistry panel however reveals that his kidney function is slightly worse than his previous baseline, in May his creatinine was 1.3 and now it is 1.6. Also his potassium has increased to 5. Continue lisinopril for now. He should have a repeat chemistry panel performed on 03/11/24 so that we make sure that we optimize his kidney function and electrolytes before his upcoming orthopedic surgery which is in mid March. I placed the bmp order Rafael Damon DO documented in this encounter Plan of Treatment Upcoming Encounters Date Type Department Care Team (Late st Contact Info) Description 04/12/2024 9:10 AM EST Anticoagulation Pharmacy, [place] [address] [place] [address] [facility] [address] [place] [address] 04/24/2024 2:00 PM EST Office Visit [facility] [address] [place] [address] Cj Irby MD [address] [place] [address] 07/01/2024 8:30 AM EST Office Visit Cardiology, [facility] [address] [place] [address] Rafael Damon DO [address] [place] [address] 09/18/2024 10:00 AM EDT Office Visit [facility] [place] [address] [place] [address] Vivian Del Cid CRNP [address] [place] [address] 10/07/2024 1:00 PM EDT Cardiac Studies Cardiac Studies, [facility] [address] [place] [address] 01/28/2025 9:30 AM EDT Office Visit Cardiology, [facility] [address] [place] [address] Rafael Damon, [address] [place] [address] Scheduled Procedures Name Priority Associated Diagnoses Date/Ti me COLONOSCOPY FLEXIBLE PROXIMAL DIAGNOSTIC Recall History of colon polyps Health Maintenance Due Date Last Done Comments Adult Wellness Visit 12/19/2018 12/19/2017 COVID-19 Vaccine ( season) 2024 02/24/2023, 06/26/2020, 05/29/2020 HbA1c 05/24/2024 05/24/2023, 10/07, 09/07/2021, Additional history exists GFR 09/08/2024 03/11/2024, 02/07, 05/24/2023, Additional history exists Albumin/Creatinine Ratio 10/23/2024 024, 10/27/2022, 09/07/2021, Additional history exists Depression Monitoring 10/23/2024 10/24/2023 Boateng's Esophagus Surveilance 02/03/2025 02/03/2022, 02/03/2022, 09/20/2018, Additional history exists CKD HGB USE SMARTSET 31320 03/06/202503/06, 03/29/2023, 03/29/2023, Additional history exists CKD PHOS USE SMARTSET 04344 03/06/202502/07, 10/27/2022, 09/05/2003 Colonoscopy 02/03/2027 02/03/2022, 01/07, 11/23/2016, Additional history exists DTap/Tdap Vaccines (3 - Td or Tdap) 10/15/2030 10/15/2020, 09/08/2010, 07/07/2000 Pneumococcal Vaccine: 65+ Years Completed 04/15/2015, 03/17/2014, 04/10/2013 RETIRED - COLONOSCOPY-EVERY 5 YRS AGES 18-100 Discontinued 02/03/2022, 02/03/2022, 11/23/2016, Additional history exists Zoster Vaccines Completed 02/02/2023, 08/2022, 11/10/2011 Influenza Vaccine (FLU shot) Completed 01/31/2024, 01/12/2023, 02/10/2022, Additional history exists HPV (Gardasil) Vaccine Aged Out No lo nger eligible based on patient's age to complete this topic Hepatitis B Vaccine Aged Out No longe r eligible based on patient's age to complete this topic MENINGOCOCCAL (MENACTRA/MENVEO) Aged Out No longer eligible based on patient's age to complete this topic documented as of this encounter Medical Devices Implanted Type Area Parliamentary Counsel Device Identifier Shelf Expiration Date Model / Serial / Lot Suture Steel 6 [id number] - [id number] Implanted:Qty: 4 on 01/29/2020 by Pavan Hernandez MD at OR [facility] [place] N/A: Sternum JNJ : [employer] 08/05/2024 [id number] / / QDBAKS documented as of this encounter Results * (ABNORMAL) BASIC METABOLIC PANEL (03/11/2024 9:04 AM EST) BUN 30(H) 6 - 20 mg/dL 03/11/2024 3:48 PM EST [facility] CREATININE 1.3(H) 0.6 - 1.2 mg/dL 03/11/2024 3:48 PM EST [facility] EGFR 56(L) >=60 mL/min 03/11/2024 3:48 PM EST [facility] Comment:eGFR is calculated b ased on the CKD-EPI 2020 equation. SODIUM 140 135 - 146 mmol/L 03/11/2024 3:48 PM EST [facility] POTASSIUM 4.7 3.5 - 5.1 mmol/L 03/11/2024 3:48 PM EST [facility] CHLORIDE 108(H) 98 - 107 mmol/L 03/11/2024 3:48 PM EST [facility] CO2 23 22 - 32 mmol/L 03/11/2024 3:48 PM EST [facility] ANION GAP 9 7 - 15 mmol/L 03/11/2024 3:48 PM EST [facility] GLUCOSE 101 70 - 120 mg/dL 03/11/2024 3:48 PM EST [facility] CALCIUM 9.1 8.4 - 10.2 mg/dL 03/11/2024 3:48 PM EST [facility] Blood Venous blood specimen / Unknown Venipuncture / Unknown 03/11/2024 9:04 AM EST 03/11/2024 9:04 AM EST Rafael Damon DO LAB BLOOD ORDERABLES [facility] [address] [place] [address] documented in this encounter Visit Diagnoses Diagnosis HTN, goal below 130/80- Primary Unspecified essential hypertension documented in this encounter Advance Directives * Full Code (Latest Code Status on File) Date Activated Date Inactivated Comments 01/29/2020 1:08 PM 02/03/2020 7:23 PM This order r eflects the patients wishes and were consensually agreed upon. Question Answer Comments Discussion of Advance Directives occurred with: Patient Does the patient have a Living Will? No Does the patient have Health Care Power of Attor sri? No * Full Code Date Activated Date Inactivated Comments 01/27/2020 7:38 PM 01/29/2020 1:08 PM This order r eflects the patients wishes and were consensually agreed upon. Question Answer Comments Discussion of Advance Directives occurred with: Patient Does the patient have a Living Will? Yes, not cu rrently available Care Teams Licensing Representative Relationship Specialty Start Date End Date Cj Irby MD [address] [place] [address] PCP - General 10/29/1997 documented as of this encounter
--- OUTSIDE RECORDS SUMMARY | 2024-03-20 14:55 | External Medical Summary | Summary of Care ---
Author Name Unknown Organization [facility] Address [address] [facility] [place] [address] Phone [phone] Care Team Providers Care Diamond Assorter Name Role Phone Cj Irby MD Primary Care Provider [phone] Reason for Visit * Reason Comments Dosage Adjustment Via Phone (anticoag Cl inic) Encounter Details Date Type Department Care Team (Latest Contact Info) Description 03/12/2024 6:00 AM [facility] Anticoagulation Pharmacy, [place] [address] [place] [address] [facility] [address] [place] [address] Anticoagulation management encounter*; Paroxysmal atrial fibrillation (HCC) Allergies No known active allergiesdocumented as of this encounter (statuses as of 03/11/2024) Medications Medication Sig Dispensed Refills Start Date [...] as of this encounter (statuses as of 03/11/2024) Active Problems Problem Noted Date Diagnosed Date Nonrheumatic aortic valve stenosis 07/31/2023 SHILOH (generalized anxiety disorder) 05/12/2022 Gouty arthropathy 05/12/2022 Prediabetes 09/13/2021 Overview: Per Prediabetes protocol Chronic kidney disease, stage 3a 09/15/2020 Overview: Per CKD protocol S/P CABG x 3 02/02/2020 Paroxysmal atrial fibrillation 02/02/2020 Coronary artery disease invo lving [place] coronary artery of [place] heart without angina pectoris 01/27/2020 Boateng's esophagus [...] as of this encounter (statuses as of 03/11/2024) Resolved Problems Problem Noted Date Diagnosed Date [...] Directive brochure offered , patient declined. CHEST [id number] 11/25/200411/2017 Lung field abnormal 09/24/2004 07/07/19 19 BENIGN NEOPLASM LG BOWEL 05/08/2000 COUGH SECONDARY TO POST-NASAL DRIP 11/16/1999 10/18/2016 Mixed dyslipidemia 9 Overview: Per Lipid Taxonomy. documented as of this encounter (statuses as of 03/11/2024) Immunizations Name Administration Dates Next Due COVID-19 [...] Influenza, Quadriva lent, No Preserve, IM 03/11/2016 TD, Preservative Free 10/15/2020 TDAP, Age 7 [...] (15 years old or older) No 01/28/20 Cognitive Status Response Date of Assessm ent Because of a physical, menta l, or emotional condition, do you have serious difficulty concentrating, remembering, or making decisions? (5 years old or older) No 01/28/2020 documented as of this encounter Progress Notes * Lalita Manjarrez, [facility] - 03/11/2024 3:16 PM EST Medication Therapy Disease Management - Anticoagulation Patient: Scott Virgen Sr. | : 1950 Subjective Contacts Contact Date/Time Type Contact Phone/Fax 03/11/2024 03:17 PM EST Phone (Outgoing) Scott Virgen Sr. (Self) [phone] (H) Left Message 03/11/2024 03:20 PM EST Email (Outgoing) Scott Virgen Sr. (Self) MyG message Patient-Reported Symptoms: Patient Findings Positives: Signs/symptoms of bleeding (has been having blood in his mouth upon waking (does sleep with a CPAP)) Negatives: Signs/symptoms of thrombosis, Change in health, Change in alcohol use, Change in activity, Upcoming invasive procedure, Missed doses, Extra doses, Change in medications, Change in diet/appetite, Bruising Objective Current Warfarin Dose As of 03/12/2024 Warfarin maintenance plan: 2.5 mg (5 mg x 0.5) every Mon; 5 mg (5 mg x 1) all other days INR Result As of 03/12/2024 INR goal: 2.0-3.0 INR used for dosin.7 (03/11/2024) Assessment & Plan Warfarin Plan As of 03/12/2024 Full warfarin instructions: 2.5 mg every Mon; 5 mg all other days Next INR check: 04/12/2024 Repeat PT/INR in 4 week(s) Weekly dose: not changed Additional Dosing Information: I spent a total of 10-19 minutes (exact time 10 mins) on the date of service in preparation, delivery, and documentation of the care provided to Hernanhiro Tania Virgen Sr. excluding any time spent in the performance of separately billed services or time spent by another provider/QHP. Lalita Manjarrez [facility] Clinical Pharmacist 03/11/2024, 3:17 PM documented in this encounter Plan of Treatment Upcoming Encounters Date Type Department Care Team (Late st Contact Info) Description 04/12/2024 9:10 AM EST Anticoagulation Pharmacy, [place] [address] [place] [address] [facility] [address] [place] [address] 04/24/2024 2:00 PM EST Office Visit Family [facility], [facility] [address] [place] [address] Cj Irby MD [address] [place] [address] 07/01/2024 8:30 AM EST Office Visit Cardiology, [facility] [address] [place] [address] Rafael Damon, DO [address] [place] [address] 09/18/2024 10:00 AM EDT Office Visit Sleep Disorders Ctr [facility] [address] [place] [phone] Vivian Del Cid CRNP [address] [place] [address] 10/07/2024 1:00 PM EDT Cardiac Studies Cardiac Studies, [facility] [address] [place] [address] 01/28/2025 9:30 AM EDT Office Visit Cardiology, [facility] [address] [place] [address] Rafael Damon, [address] [place] [address] Scheduled Procedures Name Priority Associated Diagnoses Date/Ti me COLONOSCOPY FLEXIBLE PROXIMAL DIAGNOSTIC Recall History of colon polyps Health Maintenance Due Date Last Done Comments Adult Wellness Visit 12/19/2018 12/19/2017 COVID-19 Vaccine ( season) 2024 02/24/2023, 06/26/2020, 05/29/2020 HbA1c 05/24/2024 05/24/2023, 10/07, 09/07/2021, Additional history exists GFR 09/04/2024 03/06/2024, 05/08, 11/17/2022, Additional history exists Albumin/Creatinine Ratio 10/23/2024 024, 10/27/2022, 09/07/2021, Additional history exists Depression Monitoring 10/23/2024 10/24/2023 Boateng's Esophagus Surveilance 02/03/2025 02/03/2022, 02/03/2022, 09/20/2018, Additional history exists CKD HGB USE SMARTSET 12429 03/06/202503/06, 03/29/2023, 03/29/2023, Additional history exists CKD PHOS USE SMARTSET 02793 03/06/202502/07, 10/27/2022, 09/05/2003 Colonoscopy 02/03/2027 02/03/2022, 01/07, [...] this encounter Medical Devices Implanted Type Area Insurance Claim Representative Device Identifier Shelf Expiration Date Model / Serial / Lot Suture Steel 6 B&S19 M654g - [id number] Implanted:Qty: 4 on 01/29/2020 [place]avan [place] [facility] [place] Sternum JNJ : [employer] 08/05/2024 [id number] / / QDBAKS documented as of this encounter Visit Diagnoses Diagnosis Anticoagulation management encounter- Primary Encounter for therapeutic drug monitoring Paroxysmal atrial fibrillation (HCC) Atrial fibrillation documented in this encounter Advance Directives * [...] Yes, not cu rrently available Care Teams Diamond Assorter Relationship Specialty Start Date End Date Cj Irby MD [address] [place] [address] PCP - General 10/29/1997 documented as of this encounter"
--- OUTSIDE RECORDS SUMMARY | 2024-03-20 14:55 | External Medical Summary | Summary of Care ---
Author Name Unknown Organization [facility] Address [address] Care Team Providers Care Aircraft Skin Burnisher Name Role Phone Cj Irby MD Primary Care Provider [phone] Reason for Visit * Reason Onset Date Comments Advice 03/12/2024 Encounter Details Date Type Department Care Team (Late st Contact Info) Description 03/12/2024 Telephone Pharmacy, [facility] [place] [address] [facility] [place] [address] [facility] [address] [place] [address] Advice Allergies No known active allergiesdocumented as of this encounter (statuses as of 03/12/2024) Medications Medication Sig Dispensed Refills Start Date [...] as of this encounter (statuses as of 03/12/2024) Active Problems Problem Noted Date Diagnosed Date Nonrheumatic aortic valve stenosis 07/31/2023 SHILOH (generalized anxiety disorder) 05/12/2022 Gouty arthropathy 05/12/2022 Prediabetes 09/13/2021 Overview: Per Prediabetes protocol Chronic kidney disease, stage 3a 09/15/2020 Overview: Per CKD protocol S/P CABG x 3 02/02/2020 Paroxysmal atrial fibrillation 02/02/2020 Coronary artery disease invo lving te[place] coronary artery of tejon heart without angina pectoris 01/27/2020 Boateng's esophagus [...] as of this encounter (statuses as of 03/12/2024) Resolved Problems Problem Noted Date Diagnosed Date [...] Directive brochure offered , patient declined. CHEST [id number] 11/25/200411/2017 Lung field abnormal 09/24/2004 07/07/19 19 BENIGN NEOPLASM LG BOWEL 05/08/2000 COUGH SECONDARY TO POST-NASAL DRIP 11/16/1999 10/18/2016 Mixed dyslipidemia 04/20/ 9 Overview: Per Lipid Taxonomy. documented as of this encounter (statuses as of 03/12/2024) Immunizations Name Administration Dates Next Due COVID-19 [...] encounter Miscellaneous Notes * Telephone Encounter - Lalita Manjarrez RP - 03/12/2024 3:01 PM EST Spoke to patient via phone. Reviewed Dr. Damon's documentation: Patient was to take his last dose of coumadin 03/14, then restart coumadin the evening of the procedure with 10 mg for 2 days, then resume previous dose. Repeat pt/inr 2 weeks after procedure. Lalita Manjarrez, PharmD, BCACP Clinical Pharmacist Medication Therapy Disease Management 03/12/2024, 3:03 PM * Telephone Encounter - Natalee Stewart CPhT - 03/12/2024 1:15 PM EST Caller's name: Scott Preferred call back number(OFFICE NUMBER FOR ): [phone] Reason for call: requesting a call from Lalita stating after he spoke with you yesterday he spoke with Dr. Damon and he would like to discuss what Dr. Damon advised him to do regarding the warfarin. Natalee Stewart CPhT, MD Structural Rigger II [facility] ([facility]) [phone] [place] [address] ext [phone] documented in this encounter Plan of Treatment Upcoming Encounters Date Type Department Care Team (Late st Contact Info) Description 04/12/2024 9:10 AM EST Anticoagulation Pharmacy, [place] [address] [place] [address] [facility] [address] [place] [address] 04/24/2024 2:00 PM EST Office Visit Family [facility] [address] [place] [address] Cj Irby MD [address] [place] [address] 07/01/2024 8:30 AM EST Office Visit Cardiology, [facility] [address] [facility] [place] [address] Rafael Damon, [address] [place] [address] 09/18/2024 10:00 AM EDT Office Visit Sleep Disorders Ctr [facility] [address] [place] [phone] Vivian Del Cid CRNP [address] [place] [address] 10/07/2024 1:00 PM EDT Cardiac Studies Cardiac Studies, [facility] [address] [place] [address] 01/28/2025 9:30 AM EDT Office Visit Cardiology, [facility] [address] [place] [address] Rafael Damon, DO [address] [place] [address] Scheduled Procedures Name Priority Associated Diagnoses Date/Ti [...] Additional history exists CKD HGB USE SMARTSET 81373 03/06/202503/06, 03/29/2023, 03/29/2023, Additional history exists CKD PHOS USE SMARTSET 87394 03/06/202502/07, 10/27/2022, 09/05/2003 Colonoscopy 02/03/2027 02/03/2022, 01/07, 11/23/2016, Additional history exists DTap/Tdap Vaccines (3 - Td or Tdap) 10/15/2030 10/15/2020, 09/08/2010, 07/07/2000 Pneumococcal Vaccine: 65+ Years Completed 04/15/2015, 03/17/2014, 04/10/2013 RETIRED - COLONOSCOPY-EVERY 5 YRS AGES 18-100 Discontinued 02/03/2022, 02/03/2022, 11/23/2016, Additional history exists Zoster Vaccines Completed 02/02/2023, 0508/2022, 11/10/2011 Influenza Vaccine (FLU shot) Completed 01/31/2024, [...] this encounter Medical Devices Implanted Type Area Digester Cook Device Identifier Shelf Expiration Date Model / Serial / Lot Suture Steel 6 B&S19 M654g - [id number] Implanted:Qty: 4 on 01/29/2020 by Pavan Hernandez MD at [place] [facility] [place] N/A: Sternum JNJ : [employer] 08/05/2024 [id number] / / QDBAKS documented as of this encounter Visit Diagnoses Diagnosis Paroxysmal atrial fibrillation (HCC)- Primary Atrial fibrillation documented in this encounter Advance [...] Yes, not cu rrently available Care Teams Aircraft Skin Burnisher Relationship Specialty Start Date End Date Cj Irby MD [address] [place] [address] PCP - General 10/29/1997 documented as of this encounter
--- OUTSIDE RECORDS SUMMARY | 2024-03-20 14:55 | External Medical Summary | Summary of Care ---
Author Name Unknown Organization [facility] Address [address] [facility] [place] [address] Phone [phone] Care Team Providers Care Credit Card Specialist Name Role Phone Cj Irby MD Primary Care Provider [phone] Reason for Visit * Reason Onset Date Comments Test Results 03/11/2024 Encounter Details Date Type Department Care Team (Late st Contact Info) Description 03/11/2024 Telephone Cardiology, [facility] [address] [place] [address] Rafael Damon, [address] [place] [address] Test Results Allergies No known active allergiesdocumented [...] fibrillation 02/02/2020 Coronary artery disease invo lving [place] coronary artery of [place] heart without angina pectoris 01/27/2020 Boateng's esophagus [...] Directive brochure offered , patient declined. CHEST [id number] 11/25/200411/2017 Lung field abnormal 09/24/2004 07/07/19 19 [...] encounter Miscellaneous Notes * Telephone Encounter - Rafael Damon, - 03/11/2024 6:30 PM EST Latest Reference Range & Units 03/11/24 09:04 SODIUM 135 - 146 mmol/L 140 POTASSIUM 3.5 - 5.1 mmol/L 4.7 CHLORIDE 98 - 107 mmol/L 108 (H) CO2 22 - 32 mmol/L 23 BUN 6 - 20 mg/dL 30 (H) CREATININE 0.6 - 1.2 mg/dL 1.3 (H) EGFR >=60 mL/min 56 (L) ANION GAP 7 - 15 mmol/L 9 GLUCOSE 70 - 120 mg/dL 101 CALCIUM 8.4 - 10.2 mg/dL 9.1 INR 0.8 - 1.2 2.7 (H) (H): Data is abnormally high (L): Data is abnormally low A repeat chemistry panel was performed which revealed improved creatinine of 1.3 down from 1.6 lastweek. Potassium has improved as well. Stable findings. INR level 2.7. With regards to upcoming Orthopedic Surgery, proceed with surgery as planned. As noted in the previous pharmacy note, Patient was to take his last dose of coumadin 03/14, then restart coumadin the evening of the procedure with 10 mg for 2 days, then resume previous dose. Repeat pt/inr 2 weeks after procedure. Plan discussed with the patient. Questions answered to his satisfaction. Rafael Damon DO documented in this encounter Plan of Treatment Upcoming Encounters Date Type Department Care Team (Late st Contact Info) Description 04/12/2024 9:10 AM EST Anticoagulation Pharmacy, [place] [address] [place] [address] [facility] [address] [place] [address] 04/24/2024 2:00 PM EST Office Visit [facility] [address] [place] [address] Cj Irby MD [address] [place] [address] 07/01/2024 8:30 AM EST Office Visit Cardiology, [facility] [address] [facility] [place] [address] Rafael Damon DO [address] [place] [address] 09/18/2024 10:00 AM EDT Office Visit Sleep Disorders Ctr [facility] [address] [place] [phone] Vivian Del Cid CRNP [address] [place] [address] 10/07/2024 1:00 PM EDT Cardiac Studies Cardiac Studies, [facility] [address] [place] [address] 01/28/2025 9:30 AM EDT Office Visit Cardiology, [facility] [address] [place] [address] Rafael Damon, DO [address] [place] [address] Scheduled Procedures Name Priority Associated Diagnoses Date/Ti [...] Additional history exists CKD HGB USE SMARTSET 03428 03/06/202503/06, 03/29/2023, 03/29/2023, Additional history exists CKD PHOS USE SMARTSET 02368 03/06/202502/07, 10/27/2022, 09/05/2003 Colonoscopy 02/03/2027 02/03/2022, 01/07, [...] this encounter Medical Devices Implanted Type Area Dialysis Technician Device Identifier Shelf Expiration Date Model / Serial / Lot Suture Steel 6 B&S19 M654g - [id number] Implanted:Qty: 4 on 01/29/2020 [place] Pavan Hernandez [place] [facility] [place] Sternum JNJ : [employer] 08/05/2024 M654G / / QDBAKS documented as of this encounter Advance Directives * Full Code [...] Yes, not cu rrently available Care Teams Credit Card Specialist Relationship Specialty Start Date End Date Cj Irby MD [address] [place] [address] PCP - General 10/29/1997 documented as of this encounter
--- OUTSIDE RECORDS SUMMARY | 2024-03-20 14:55 | External Medical Summary | Summary of Care ---
Author Name Unknown Organization [facility] Address [address] [facility] [place] [address] Phone [phone] Care Team Providers Care Emergency Management Specialist Name Role Phone Cj Irby MD Primary Care Provider [phone] Reason for Visit * Reason Onset Date Comments Test Results 03/11/2024 Encounter Details Date Type Department Care Team (Late st Contact Info) Description 03/11/2024 Telephone Cardiology, [facility] [address] [place] [address] Rafael Damon, [address] [place] [address] Test Results Allergies No known active allergiesdocumented [...] Diagnosed Date Nonrheumatic aortic valve stenosis 07/31/2023 SHIOLH (generalized anxiety disorder) 05/12/2022 Gouty arthropathy 05/12/2022 Prediabetes 09/13/2021 Overview: Per Prediabetes protocol Chronic kidney disease, stage 3a 09/15/2020 Overview: Per CKD protocol S/P CABG x 3 02/02/2020 Paroxysmal atrial fibrillation 02/02/2020 Coronary artery disease invo lving [place] coronary artery of [place] heart without angina pectoris 01/27/2020 Boateng's esophagus [...] Directive brochure offered , patient declined. CHEST [id number] 11/25/200411/2017 Lung field abnormal 09/24/2004 07/07/19 19 [...] Upcoming Encounters Date Type Department Care Team (Latest Contact Info) Description 03/12/2024 6:00 AM EST Anticoagulation Pharmacy, [address] [place] [address] [place] [address] [place] [address] Anticoagulation management encounter*; Paroxysmal atrial fibrillation (HCC) 04/12/2024 9:10 AM EST Anticoagulation Pharmacy, [place] [address] [place] [address] [place] [address] [place] [address] 04/24/2024 2:00 PM EST Office Visit [facility] [address] [place] [address] Cj Irby MD [address] [place] [facility] [place] [address] 07/01/2024 8:30 AM EST Office Visit Cardiology, [facility] [address] [facility] [place] [address] Rafael Damon DO [address] [facility] [place] [address] 09/18/2024 10:00 AM EDT Office Visit Sleep Disorders Ctr [facility] [address] [facility] [place] [phone] Vivian Del Cid CRNP [address] [facility] [place] [address] 10/07/2024 1:00 PM EDT Cardiac Studies Cardiac Studies, [facility] [address] [facility] [place] [address] 01/28/2025 9:30 AM EDT Office Visit Cardiology, [facility] [address] [facility] [place] [address] Rafael Damon, [address] [place] [address] Scheduled Procedures Name Priority Associated Diagnoses Date/Ti [...] Additional history exists CKD HGB USE SMARTSET 57685 03/06/202503/06, 03/29/2023, 03/29/2023, Additional history exists CKD PHOS USE SMARTSET 68511 03/06/202502/07, 10/27/2022, 09/05/2003 Colonoscopy 02/03/2027 02/03/2022, 01/07, [...] this encounter Medical Devices Implanted Type Area Ham Stringer Device Identifier Shelf Expiration Date Model / Serial / Lot Suture Steel 6 B&S19 M654g - [id number] Implanted:Qty: 4 on 01/29/2020 by Pavan Hernandez MD [place] [facility] [place]A: Sternum JNTania : [employer] 08/05/2024 M654G / / [...] Yes, not cu rrently available Care Teams Emergency Management Specialist Relationship Specialty Start Date End Date Cj Irby MD [address] [place] [address] PCP - General 10/29/1997 documented as of this encounter
--- OUTSIDE RECORDS SUMMARY | 2024-03-20 14:56 | External Medical Summary | Summary of Care ---
Author Name Unknown Organization [facility] Address [address] [place] [address] Phone [phone] Care Team Providers Care Office Coordinator Receptionist Name Role Phone Holly Irby MD Primary Care Provider Reason for Visit * Reason Comments eRx-Medication Refill Encounter Details Date Type Department Care Team (Late st Contact Info) Description 03/06/2024 Refill [facility] [address] [place] [address] Holly Irby MD [address] [place] [address] Allergies No known active allergiesdocumented as of this encounter (statuses as of 03/06/2024) Medications Medication Sig Dispensed Refills Start Date End Date Status VITAMIN D 1000 UNIT PO CAPSIndications: Vitamin D deficiency 1 capsule daily 30 Cap 11 1 Active Vitamin B-12 1000 MCG Oral TabletIndication s:B12 deficiency Take by mouth 1 Tablet in the morning. 100 Tablet 3 2 Active Aspirin Low Dose 81 MG Oral Tablet Chewable (aspirin)Indicat ions:Paroxysmal atrial fibrillation (HCC),CAD (coronary artery disease) TAKE 2 TABLETS BY MOUTH EVERY DAY 180 Tablet 3 3 Active Meclizine HCl 25 MG Oral Tablet (Antivert)Indica tions:Benign paroxysmal vertigo, unspecified laterality Take 1 Tablet by mouth 3 times a day as needed for Dizziness. 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 90 Tablet 3 4 Active Warfarin Sodium 5 MG Oral Tablet (Coumadin)Indica tions:Paroxysmal atrial fibrillation (HCC) TAKE 1 TABLET BY MOUTH DAILY DIRECTED BY ANTICOAGULATION CLINIC 90 Tablet 3 4 Active LORazepam 1 MG Oral Tablet (Ativan)Indicati ons:Anxiety disorder, unspecified type TAKE 1/2 - 1 TABLET BY MOUTH DAILY NEEDED FOR ANXIETY 30 Tablet 4 Active Additional Information Patient not taking.Reported on 01/15/2024 Fish Oil 300 MG Oral Capsule Take by mouth. Active Allopurinol 100 MG Oral Tablet (Zyloprim)Indica tions:Gouty arthropathy TAKE 1 TABLET BY MOUTH EVERY DAY IN THE MORNING 90 Tablet 1 4 Active Lisinopril 10 MG Oral Tablet (Prinivil) Take 1 Tablet by mouth in the morning. 90 Tablet 3 4 Active Metoprolol Tartrate 25 MG Oral Tablet (Lopressor)Indic ations:HTN, goal below 140/90 TAKE 1 TABLET BY MOUTH EVERY 12 HOURS 180 Tablet 3 4 Active traZODone HCl 50 MG Oral Tablet (Desyrel) TAKE 1 TO 2 TABLETS BY MOUTH AT BEDTIME 180 Tablet 3 4 Active traZODone HCl 50 MG Oral Tablet (Desyrel) TAKE 1 TO 2 TABLETS BY MOUTH AT BEDTIME 180 Tablet 3 3 024 Discontinued documented as of this encounter (statuses as of 03/06/2024) Active Problems Problem Noted Date Diagnosed Date Nonrheumatic aortic valve stenosis 07/31/2023 SHILOH (generalized anxiety disorder) 05/12/2022 Gouty arthropathy 05/12/2022 Prediabetes 09/13/2021 Overview: Per Prediabetes protocol Chronic kidney disease, stage 3a 09/15/2020 Overview: Per CKD protocol S/P CABG x 3 02/02/2020 Paroxysmal atrial fibrillation 02/02/2020 Coronary artery disease invo lving [place] coronary artery of [place] heart without angina pectoris 01/27/2020 Boateng's esophagus [...] as of this encounter (statuses as of 03/06/2024) Resolved Problems Problem Noted Date Diagnosed Date [...] Directive brochure offered , patient declined. CHEST [id number] 11/25/200411/2017 Lung field abnormal 09/24/2004 07/07/19 19 BENIGN NEOPLASM LG BOWEL 05/08/2000 COUGH SECONDARY TO POST-NASAL DRIP 11/16/1999 10/18/2016 Mixed dyslipidemia 9 Overview: Per Lipid Taxonomy. documented as of this encounter (statuses as of 03/06/2024) Immunizations Name Administration Dates Next Due COVID-19 [...] encounter Miscellaneous Notes * Telephone Encounter - Martha Logan, [facility] - 03/06/2024 8:50 PM EDT Signed Prescriptions: Disp Refills traZODone HCl 50 MG Oral Tablet (Desyrel) 180 Ta*3 Sig: TAKE 1 TO 2 TABLETS BY MOUTH AT BEDTIMEAuthorizing Provider: HOLLY IRBY User: MARTHA LOGAN documented in this encounter Plan of Treatment Upcoming Encounters Date Type Department Care Team (Late st Contact Info) Description 03/13/2024 9:50 AM EST Anticoagulation Pharmacy, [place] [address] [facility], [place] [address] [facility] [address] [facility] [address] 04/24/2024 2:00 PM EST Office Visit [facility] [place] [address] [facility] [phone] [facility] [address] [facility] [address] 07/01/2024 8:30 AM EST Office Visit Cardiology, [facility] [address] [place] [address] Rafael Damon, DO [address] [place] [address] 09/18/2024 10:00 AM EDT Office Visit Sleep Disorders Ctr [facility] [address] [place] [phone] Vivian Del Cid CRNP [address] [place] [address] 10/07/2024 1:00 PM EDT Cardiac Studies Cardiac Studies, [facility] [address] [place] [address] 01/28/2025 9:30 AM EDT Office Visit Cardiology, [facility] [address] [place] [address] Rafael Damon, DO [address] [place] [address] Scheduled Procedures Name Priority Associated Diagnoses Date/Ti me COLONOSCOPY FLEXIBLE PROXIMAL DIAGNOSTIC Recall History of colon polyps Health Maintenance Due Date Last Done Comments Adult Wellness Visit 12/19/2018 12/19/2017 CKD PHOS USE SMARTSET 08644 10/28/2023 10/27/2022, 0 09/05/2003 GFR 11/22/2023 05/24/2023, 11/05, 10/27/2022, Additional history exists COVID-19 Vaccine ( season) 2024 02/24/2023, 06/26/2020, 05/29/2020 CKD HGB USE SMARTSET 62957 03/29/202403/29, 03/29/2023, 10/14/2021, Additional history exists HbA1c 05/24/2024 05/24/2023, 10/07, 09/07/2021, Additional history exists Albumin/Creatinine Ratio 10/23/2024 024, 10/27/2022, 09/07/2021, Additional history exists Depression Monitoring 10/23/2024 10/24/2023 Boateng's Esophagus Surveilance 02/03/2025 02/03/2022, 02/03/2022, 09/20/2018, Additional history exists Colonoscopy 02/03/2027 02/03/2022, 01/07, 11/23/2016, Additional history exists DTap/Tdap Vaccines (3 - Td or Tdap) 10/15/2030 10/15/2020, 09/08/2010, 07/07/2000 Pneumococcal Vaccine: 65+ Years Completed 04/15/2015, 03/17/2014, 04/10/2013 RETIRED - COLONOSCOPY-EVERY 5 YRS AGES 18-100 Discontinued 02/03/2022, 02/03/2022, 11/23/2016, Additional history exists Zoster Vaccines Completed 02/02/2023, 05/0 08/2022, 11/10/2011 Influenza Vaccine (FLU shot) Completed [...] this encounter Medical Devices Implanted Type Area Career Technical Counselor Device Identifier Shelf Expiration Date Model / Serial / Lot Suture Steel 6 B&S19 M654g - [id number] Implanted:Qty: 4 on 01/29/2020 by Pavan Hernandez MD at OR [facility] N/A: Sternum JNJ : [employer] 08/05/2024 [...] Yes, not cu rrently available Care Teams Office Coordinator Receptionist Relationship Specialty Start Date End Date Holly Irby MD [address] [place] [address] PCP - General 10/29/1997 documented as of this encounter
--- OUTSIDE RECORDS SUMMARY | 2024-03-20 14:56 | External Medical Summary | Summary of Care ---
Author Name Unknown Organization [facility] Address [address] [place] [address] Phone [phone] Care Team Providers Care Ticket Taker Ferryboat Name Role Phone Cj Irby MD Primary Care Provider Reason for Visit * Reason Comments Outpatient Testing Encounter Details Date Type Department Care Team (Late st Contact Info) Description 03/06/2024 11:30 AM EDT Laboratory Laboratory, [place] [address] [place] [address] [facility] [address] [place], [place] [id number] Chronic kidney disease, unspecified CKD stage; Dyslipidemia; HTN, goal below 130/80 Allergies No known active allergiesdocumented as of [...] for Dizziness. 30 Tablet 1 12/12/2022 Active traZODone HCl 50 MG Oral Tablet (Desyrel) TAKE 1 TO 2 TABLETS BY MOUTH AT BEDTIME 180 Tablet 3 02/06/2023 Active Ezetimibe 10 MG Oral Tablet (Zetia)Indications [...] 12 HOURS 180 Tablet 3 02/02/2024 Active documented as of this encounter (statuses as of 03/06/2024) Active Problems Problem Noted Date Diagnosed Date Nonrheumatic aortic valve stenosis 07/31/2023 SHILOH (generalized anxiety disorder) 05/12/2022 Gouty arthropathy 05/12/2022 Prediabetes 09/13/2021 Overview: Per Prediabetes protocol Chronic kidney disease, stage 3a 09/15/2020 Overview: Per CKD protocol S/P CABG x 3 02/02/2020 Paroxysmal atrial fibrillation 02/02/2020 Coronary artery disease invo lving [place] coronary artery of [place] heart without angina pectoris 01/27/2020 Boateng's esophagus [...] Directive brochure offered , patient declined. CHEST [id number] 11/25/200411/2017 Lung field abnormal 09/24/2004 07/07/19 19 [...] No 01/28/2020 documented as of this encounter Plan of Treatment Upcoming Encounters Date Type Department Care Team (Late st Contact Info) Description 03/13/2024 9:50 AM EST [facility] [place] [address] [facility] [address] [facility] [address] [facility] [address] 04/24/2024 2:00 PM EST Office Visit Family Practice, [place] [address] [facility] [place] [address] Cj Irby MD [address] [facility] [address] 07/01/2024 8:30 AM EST Office Visit Cardiology, [facility] [address] [place] [address] Rafael Damon, DO [address] [place] [address] 09/18/2024 10:00 AM EDT Office Visit Sleep Disorders Ctr [facility] [address] [place] [address] Vivian Del Cid CRNP [address] [place] [address] 10/07/2024 1:00 PM EDT Cardiac Studies Cardiac Studies, [facility] [address] [facility] [place] [address] 01/28/2025 9:30 AM EDT Office Visit Cardiology, [facility] [address] [place] [address] Rafael Damon, DO [address] [place] [address] Pending Results Name Type Priority Associated Diagnoses Date /Time PHOSPHORUS Lab Routine Chronic kidney disease, unspecified CKD stage 03/06/2024 11:37 AM EDT COMPREHENSIVE METABOLIC PANEL Lab Routine Chronic kidney disease, unspecified CKD stage 03/06/2024 11:37 AM EDT HGB Lab Routine Chronic kidney disease, unspecified CKD stage 03/06/2024 11:37 AM EDT LIPID PANEL WITH DIRECT LDL IF TG IS HIGH Lab Routine Dyslipidemia 03/06/2024 11:37 AM EDT Scheduled Procedures Name Priority Associated Diagnoses Date/Ti me COLONOSCOPY FLEXIBLE PROXIMAL DIAGNOSTIC Recall History of colon polyps Health Maintenance Due Date Last Done Comments Adult Wellness Visit 12/19/2018 12/19/2017 CKD PHOS USE SMARTSET 60376 10/28/2023 10/27/2022, 0 09/05/2003 GFR 11/22/2023 05/24/2023, 11/05, 10/27/2022, Additional history exists COVID-19 Vaccine ( season) 2024 02/24/2023, 06/26/2020, 05/29/2020 CKD HGB USE SMARTSET 77452 03/29/202403/29, 03/29/2023, 10/14/2021, Additional history exists HbA1c [...] this encounter Medical Devices Implanted Type Area Air Defence Officer Device Identifier Shelf Expiration Date Model / Serial / Lot Suture Steel 6 B&S19 M654g - [id number] Implanted:Qty: 4 on 01/29/2020 by Pavan Hernandez MD at OR [facility] N/A: Beau JNJ : [employer] 08/05/2024 M654G / / QDBAKS documented as of this encounter Visit Diagnoses Diagnosis Chronic kidney disease, unspecified CKD stage Dyslipidemia Other and unspecified hyperlipidemia HTN, goal below 130/80 Unspecified essential hypertension documented in this encounter [...] Yes, not cu rrently available Care Teams Ticket Taker Ferryboat Relationship Specialty Start Date End Date Cj Irby MD [address] [place] [address] PCP - General 10/29/1997 documented as of this encounter
--- OUTSIDE RECORDS SUMMARY | 2024-03-20 14:56 | External Medical Summary ---
Author Name Unknown Address Unknown Organization K01:[facility] [place] [address] [place] [address] Laboratory Report Ordering Provider Test Date Status HERLINDA GAVIRIA 03/11/2024 09:04:45 Final Warfarin Therapy
INR: 2 .0-3.0 conventional anticoagulation
INR: 2.5- 3.5 high intensity anticoagulation Observation Date Value Abnormality Reference (Units ) Status PT 03/11/2024 09:04:45 28.8 Above high normal 11 .6-15.2 (seconds) Final INR 03/11/2024 09:04:45 2.7 Above high normal 0. 8-1.2 Final Performing Location [facility] [place] [address] [place] [address]
--- OUTSIDE RECORDS SUMMARY | 2024-03-20 14:56 | External Medical Summary ---
Author Name Unknown Address Unknown Organization [id number]:[facility]ORY [facility] [place] - [address] [facility] [place] [address] Laboratory Report Ordering Provider Test Date Status JOELLE BARRERA 03/06/2024 11:37:18 Final Observation Date Value Abnormality Reference (Units ) Status BUN 03/06/2024 11:37:18 31 Above high normal 6-20 (mg/dL) Final Creatinine 03/06/2024 11:37:18 1.6 Above high normal 0.6-1.2 (mg/dL) Final Glomerular filtration rate/1.73 sq M.predicted [Volume Rate/Area] in Serum, Plasma or Blood by Creatinine-based formula (CKD-EPI) 03/06/2024 11:37:18 45 Below low normal >=60 (mL/min) Final eGFR is calculated based on the CKD-EPI 2020 equation. Sodium 03/06/2024 11:37:18 140 135-146 (m mol/L) Final Potassium 03/06/2024 11:37:18 5.0 3.5-5.1 (m mol/L) Final Cl 03/06/2024 11:37:18 105 98-107 (mm ol/L) Final CO2 03/06/2024 11:37:18 24 22-32 (mmo l/L) Final Anion gap 03/06/2024 11:37:18 11 7-15 (mmol /L) Final Glucose 03/06/2024 11:37:18 92 70-120 (mg /dL) Final Albumin 03/06/2024 11:37:18 4.1 3.8-5.0 (g /dL) Final AST (Aspartate aminotransferase) 03/06/2024 11:37:18 21 10-50 (U/L) Final Alk Phos 03/06/2024 11:37:18 127 35-130 (U/ L) Final Bilirubin, Total 03/06/2024 11:37:18 0.4 <=1 .2 (mg/dL) Final Calcium 03/06/2024 11:37:18 8.9 8.4-10.2 ( mg/dL) Final Protein 03/06/2024 11:37:18 6.9 6.0-8.3 (g /dL) Final ALT (Alanine aminotransferase) 03/06/2024 11:37:18 19 10-50 (U/L) Final Performing Location LAB[facility]ATORY [facility] [place] - [facility] [address] [facility] [address]
--- OUTSIDE RECORDS SUMMARY | 2024-03-20 14:56 | External Medical Summary ---
Author Name Unknown Address Unknown Organization K01:LABORATORY [facility] [place] - [address] [place] [address] Laboratory Report Ordering Provider Test Date Status JD BARRERALAURA 03/06/2024 11:37:18 Final Observation Date Value Abnormality Reference (Units ) Status Hemoglobin 03/06/2024 11:37:18 12.5 Below low normal 14 .0-16.8 (g/dL) Final Performing Location LABORATORY [facility] - [address] [place] [address]
--- OUTSIDE RECORDS SUMMARY | 2024-03-20 14:56 | External Medical Summary | Summary of Care ---
Author Name Unknown Organization [facility] Address [address] [place] [address] Phone [phone] Care Team Providers Care Electrical Laboratory Technician Name Role Phone Cj Irby MD Primary Care Provider [phone] Reason for Visit * Reason Comments Outpatient Testing Encounter Details Date Type Department Care Team (Late st Contact Info) Description 03/11/2024 9:10 AM EST Laboratory Laboratory, [place] [address] [place] [address] [facility] [address] [place] [address] Paroxysmal atrial fibrillation (HCC); Anticoagulation management encounter; HTN, goal below 130/80 Allergies No known [...] fibrillation 02/02/2020 Coronary artery disease invo lving [place] coronary artery of [place] heart without angina pectoris 01/27/2020 Boateng's esophagus [...] Directive brochure offered , patient declined. CHEST [id number] 11/25/200411/2017 Lung field abnormal 09/24/2004 07/07/19 19 [...] Care Team (Late st Contact Info) Description 04/24/2024 2:00 PM EST Office Visit [facility] [address] [place] [address] Cj Irby MD [address] [facility] [address] 07/01/2024 8:30 AM EST Office Visit Cardiology, [facility] [address] [place] [address] Rafael Damon, [address] [place] [address] 09/18/2024 10:00 AM EDT Office Visit Sleep Disorders Ctr [facility] [address] [facility] [place] [address] Vivian Del Cid CRNP [address] [facility] [place] [address] 10/07/2024 1:00 PM EDT Cardiac Studies Cardiac Studies, [facility] [address] [facility] [place] [address] 01/28/2025 9:30 AM EDT Office Visit Cardiology, [facility] [address] [facility] [place] [address] Rafael Damon, [address] [place] [address] Pending Results Name Type Priority Associated Diagnoses Date /Time PT INR Lab Routine Paroxysmal atrial fibrillation (HCC) Anticoagulation management encounter 03/11/2024 9:04 AM EST BASIC METABOLIC PANEL Lab Routine HTN, goal below 130/80 03/11/2024 9:04 AM EST Scheduled Procedures Name Priority Associated Diagnoses Date/Ti [...] Additional history exists CKD HGB USE SMARTSET 02288 03/06/202503/06, 03/29/2023, 03/29/2023, Additional history exists CKD PHOS USE SMARTSET 20902 03/06/202502/07, 10/27/2022, 09/05/2003 Colonoscopy 02/03/2027 02/03/2022, 01/07, [...] this encounter Medical Devices Implanted Type Area Convict Guard Device Identifier Shelf Expiration Date Model / Serial / Lot Suture Steel 6 B&S19 M654g - [id number] Implanted:Qty: 4 on 01/29/2020 by Pavan Hernandez MD at OR [facility] N/A: Sternum JNJ : [employer] 08/05/2024 M654G / / QDBAKS documented as of this encounter Visit Diagnoses Diagnosis Paroxysmal atrial fibrillation (HCC) Atrial fibrillation Anticoagulation management encounter Encounter for therapeutic drug monitoring HTN, goal below 130/80 Unspecified essential hypertension [...] Yes, not cu rrently available Care Teams Electrical Laboratory Technician Relationship Specialty Start Date End Date Cj Irby MD [address] [place] [address] PCP - General 10/29/1997 documented as of this encounter
--- OUTSIDE RECORDS SUMMARY | 2024-03-20 14:56 | External Medical Summary | Summary of Care ---
Author Name Unknown Organization [facility] Address [address] [facility] [place] [address] Phone [phone] Care Team Providers Care Sql Report Developer Name Role Phone Cj Irby MD Primary Care Provider [phone] Reason for Visit * Reason Onset Date Comments Test Results 03/06/2024 Encounter Details Date Type Department Care Team (Late st Contact Info) Description 03/06/2024 Telephone Cardiology, [facility] [address] [place] [address] Rafael Damon, DO [address] [place] [address] Test Results Allergies No known active allergiesdocumented as of this encounter (statuses as of 03/07/2024) Medications Medication Sig Dispensed Refills Start Date [...] as of this encounter (statuses as of 03/07/2024) Active Problems Problem Noted Date Diagnosed Date Nonrheumatic aortic valve stenosis 07/31/2023 SHILOH (generalized anxiety disorder) 05/12/2022 Gouty arthropathy 05/12/2022 Prediabetes 09/13/2021 Overview: Per Prediabetes protocol Chronic kidney disease, stage 3a 09/15/2020 Overview: Per CKD protocol S/P CABG x 3 02/02/2020 Paroxysmal atrial fibrillation 02/02/2020 Coronary artery disease invo lving [place] coronary artery of [place] heart without angina pectoris 01/27/2020 Boateng's esophagus [...] as of this encounter (statuses as of 03/07/2024) Resolved Problems Problem Noted Date Diagnosed Date [...] Directive brochure offered , patient declined. CHEST [id number] 11/25/200411/2017 Lung field abnormal 09/24/2004 07/07/19 19 BENIGN NEOPLASM LG BOWEL 05/08/2000 COUGH SECONDARY TO POST-NASAL DRIP 11/16/1999 10/18/2016 Mixed dyslipidemia 9 Overview: Per Lipid Taxonomy. documented as of this encounter (statuses as of 03/07/2024) Immunizations Name Administration Dates Next Due COVID-19 [...] encounter Miscellaneous Notes * Telephone Encounter - Kitty Ortez CMA - 03/06/2024 12:26 PM EDT Office note from 01/14, EKG, and Dr. Damon's note from faxed to Dr. Keating at [phone]. Successful fax transmission confirmation received. * Telephone Encounter - Rafael Damon DO - 03/06/2024 11:58 AM EDT Preoperative EKG performed 03/06/2024 at 905 reviewed and interpreted independently: Sinus bradycardia 48 bpm with first-degree AV block, FL interval 252 ms. Stable findings, unchangedcompared to the previous dated 07/31/2023. Patient stable to proceed with orthopedic surgery without further cardiac testing. Ful pre op note on chart from 01/15/24. Cardio nursing, please notify pt and fax EKG, today's note and 01/[address] Rishabh [place] ortho. Rafael Damon DO documented in this encounter Plan of Treatment Upcoming Encounters Date Type Department Care Team (Late st Contact Info) Description 03/13/2024 9:50 AM EST Anticoagulation Pharmacy, [place] [address] [place] [address] [place] [facility] [address] [place] [address] 04/24/2024 2:00 PM EST Office [facility], [place] [address] [place] [facility] [place] [address] Cj Irby MD [address] [place] [address] 07/01/2024 8:30 AM EST Office Visit Cardiology, [facility] [address] [facility] [place] [address] Rafael Damon DO [address] [place] [address] 09/18/2024 10:00 AM EDT Office Visit [facility] Disorders Ctr [facility] [place] [phone] Vivian Del Cid CRNP [address] [place] [address] 10/07/2024 1:00 PM EDT Cardiac Studies Cardiac Studies, [facility] [address] [facility] [place] [address] 01/28/2025 9:30 AM EDT Office Visit Cardiology, [facility] [address] [place] [address] Rafael Damon, [address] [place] [address] Scheduled Procedures Name Priority Associated Diagnoses Date/Ti [...] Additional history exists CKD HGB USE SMARTSET 72749 03/06/202503/06, 03/29/2023, 03/29/2023, Additional history exists CKD PHOS USE SMARTSET 06691 03/06/202502/07, 10/27/2022, 09/05/2003 Colonoscopy 02/03/2027 02/03/2022, 01/07, [...] this encounter Medical Devices Implanted Type Area Talent Partner Device Identifier Shelf Expiration Date Model / Serial / Lot Suture Steel 6 B&S19 M654g - [id number] Implanted:Qty: 4 on 01/29/2020 by Pavan Hernandez MD at [place] [facility] N/A: Sternum JNJ : [employer] 08/05/2024 [...] Yes, not cu rrently available Care Teams Sql Report Developer Relationship Specialty Start Date End Date Cj Irby MD [address] [place] [address] PCP - General 10/29/1997 documented as of this encounter
--- OUTSIDE RECORDS SUMMARY | 2024-03-20 14:56 | External Medical Summary | Summary of Care ---
Author Name Unknown Organization [facility] Address [address] [facility] [place] [address] Phone [phone] Care Team Providers Care Employee Development Director Name Role Phone Cj Irby MD Primary Care Provider [phone] Reason for Visit * Reason Onset Date Comments Test Results 03/06/2024 Encounter Details Date Type Department Care Team (Late st Contact Info) Description 03/06/2024 Telephone Cardiology, [facility] [address] [place] [address] Rafael Damon, [address] [place] [address] Test Results Allergies No known active allergiesdocumented [...] fibrillation 02/02/2020 Coronary artery disease invo lving [place] coronary artery of [place] heart without angina pectoris 01/27/2020 Boateng's esophagus [...] Directive brochure offered , patient declined. CHEST [id number] 11/25/200411/2017 Lung field abnormal 09/24/2004 07/07/19 19 [...] note from faxed to Dr. Keating at [phone]. Successful fax transmission confirmation received. * Telephone Encounter - Rafael Damon DO - 03/06/2024 11:58 AM EDT Preoperative EKG performed 03/06/2024 at 905 reviewed and interpreted independently: Sinus bradycardia 48 bpm with first-degree AV block, PA interval 252 ms. Stable findings, unchangedcompared to the previous dated 07/31/2023. Patient stable to proceed with orthopedic surgery without further cardiac testing. Ful pre op note on chart from 01/15/24. Cardio nursing, please notify pt and fax EKG, today's note and 01/[address] Rishabh cline. Rafael Damon DO documented in this encounter Plan of Treatment Upcoming Encounters Date Type Department Care Team (Late st Contact Info) Description 03/13/2024 9:50 AM EST Anticoagulation Pharmacy, [place] [address] [place] [address] [facility] [address] [place] [address] 04/24/2024 2:00 PM EST Office Visit [place] [address] [place] [address] Cj Irby MD [address] [place] [address] 07/01/2024 8:30 AM EST Office Visit Cardiology, [facility] [address] [place] [address] Rafael Damon DO [address] [place] [address] 09/18/2024 10:00 AM EDT Office Visit [facility] Disorders [facility] [address] [place] [phone] Vivian Del Cid CRNP [address] [place] [address] 10/07/2024 1:00 PM EDT Cardiac Studies Cardiac Studies, [facility] [address] [place] [address] 01/28/2025 9:30 AM EDT Office Visit Cardiology, [facility] [address] [place] [address] Rafael Damon, DO [address] [place] [address] Scheduled Procedures Name Priority Associated Diagnoses Date/Ti me COLONOSCOPY FLEXIBLE PROXIMAL DIAGNOSTIC Recall History of colon polyps Health Maintenance Due Date Last Done Comments Adult Wellness Visit 12/19/2018 12/19/2017 CKD PHOS USE SMARTSET 55487 10/28/2023 10/27/2022, 0 09/05/2003 GFR 11/22/2023 05/24/2023, 11/05, 10/27/2022, Additional history exists COVID-19 Vaccine ( season) 2024 02/24/2023, 06/26/2020, 05/29/2020 CKD HGB USE SMARTSET 17245 03/29/202403/29, 03/29/2023, 10/14/2021, Additional history exists HbA1c [...] this encounter Medical Devices Implanted Type Area Fancy Stitcher Device Identifier Shelf Expiration Date Model / Serial / Lot Suture Steel 6 B&S19 M654g - [id number] Implanted:Qty: 4 on 01/29/2020 by Pavan Hernandez [place] [facility] [place] Beeum JNTania : [employer] 08/05/2024 [id number] / [...] Yes, not cu rrently available Care Teams Employee Development Director Relationship Specialty Start Date End Date Cj Irby MD [address] [place] [address] PCP - General 10/29/1997 documented as of this encounter
--- OUTSIDE RECORDS SUMMARY | 2024-03-20 14:56 | External Medical Summary ---
Author Name Unknown Address Unknown Organization [id number]:[facility] [place] [facility] [address] [facility] [address] Laboratory Report Ordering Provider Test Date Status GLENDY LUGO 03/11/2024 09:04:45 Final Observation Date Value Abnormality Reference (Units ) Status BUN 03/11/2024 09:04:45 30 Above high normal 6-20 (mg/dL) Final Creatinine 03/11/2024 09:04:45 1.3 Above high normal 0.6-1.2 (mg/dL) Final Glomerular filtration rate/1.73 sq M.predicted [Volume Rate/Area] in Serum, Plasma or Blood by Creatinine-based formula (CKD-EPI) 03/11/2024 09:04:45 56 Below low normal >=60 (mL/min) Final eGFR is calculated based on the CKD-EPI 2020 equation. Sodium 03/11/2024 09:04:45 140 135-146 (m mol/L) Final Potassium 03/11/2024 09:04:45 4.7 3.5-5.1 (m mol/L) Final Cl 03/11/2024 09:04:45 108 Above high normal 98 -107 (mmol/L) Final CO2 03/11/2024 09:04:45 23 22-32 (mmo l/L) Final Anion gap 03/11/2024 09:04:45 9 7-15 (mmol /L) Final Glucose 03/11/2024 09:04:45 101 70-120 (mg /dL) Final Calcium 03/11/2024 09:04:45 9.1 8.4-10.2 ( mg/dL) Final Performing Location [facility] [place] [address] [place] [address]
--- OUTSIDE RECORDS SUMMARY | 2024-03-20 14:56 | External Medical Summary ---
Author Name Unknown Address Unknown Organization [id number]:[facility]ORY [facility] [place] - [address] [facility] [place] [address] Laboratory Report Ordering Provider Test Date Status JOELLE BARRERA 03/06/2024 11:37:18 Final Observation Date Value Abnormality Reference (Units ) Status Triglyceride 03/06/2024 11:37:18 84 <=174 ( mg/dL) Final Triglyceride Reference Range s (mg/dL):
<150 Acceptable
150-174 Borderline high
175-499 High
>=500 Very high Cholesterol 03/06/2024 11:37:18 132 <200 (mg /dL) Final Total Cholesterol Reference Ranges (mg/dL):
<200 Desirable
200-239 Borderline high
>=240 High HDL 03/06/2024 11:37:18 47 >39 (mg/dL ) Final HDL Cholesterol Reference Ra nges (mg/dL):
>=60 High (Desirable)
<50 Low (Undesirable) For Females
<40 Low (Undesirable) For Males NON-HDL CHOLESTEROL 03/06/2024 11:37:18 85 <=159 (mg/dL) Final Non-HDL Cholesterol Referenc e Range (mg/dL):
<100 Target level for high risk ASCVD patient
<130 Optimal for general population
130-159 Near optimal for general population
160-189 Borderline High
190-219 High
>=220 Very High LDL, (calculated) 03/06/2024 11:37:18 68 <= 129 (mg/dL) Final LDL Cholesterol Reference Ra nges (mg/dL):
<70 Target level for high risk ASCVD patient
<100 Optimal for general population
100-129 Near optimal for general population
130-159 Borderline high
160-189 High
>=190 Very high Performing Location LAB[facility]ATORY [facility] [place] - [address] [facility] [address]
--- OUTSIDE RECORDS SUMMARY | 2024-03-20 14:56 | External Medical Summary | Summary of Care ---
Author Name Unknown Organization [facility] Address [address] [facility] [place] [address] Phone [phone] Care Team Providers Care Rose Grader Name Role Phone Cj Irby MD Primary Care Provider [phone] Reason for Visit * Reason Onset Date Comments Test Results 03/07/2024 Encounter Details Date Type Department Care Team (Late st Contact Info) Description 03/07/2024 Telephone Cardiology, [facility] [address] [place] [address] Rafael Damon, [address] [place] [address] Test Results Allergies No known active allergiesdocumented as of this encounter (statuses as of 03/08/2024) Medications Medication Sig Dispensed Refills Start Date [...] as of this encounter (statuses as of 03/08/2024) Active Problems Problem Noted Date Diagnosed Date Nonrheumatic aortic valve stenosis 07/31/2023 SHILOH (generalized anxiety disorder) 05/12/2022 Gouty arthropathy 05/12/2022 Prediabetes 09/13/2021 Overview: Per Prediabetes protocol Chronic kidney disease, stage 3a 09/15/2020 Overview: Per CKD protocol S/P CABG x 3 02/02/2020 Paroxysmal atrial fibrillation 02/02/2020 Coronary artery disease invo lving [place] coronary artery of [place] heart without angina pectoris 01/27/2020 Boateng's esophagus [...] as of this encounter (statuses as of 03/08/2024) Resolved Problems Problem Noted Date Diagnosed Date [...] Directive brochure offered , patient declined. CHEST [id number] 11/25/200411/2017 Lung field abnormal 09/24/2004 07/07/19 19 BENIGN NEOPLASM LG BOWEL 05/08/2000 COUGH SECONDARY TO POST-NASAL DRIP 11/16/1999 10/18/2016 Mixed dyslipidemia 9 Overview: Per Lipid Taxonomy. documented as of this encounter (statuses as of 03/08/2024) Immunizations Name Administration Dates Next Due COVID-19 [...] 03/08/2024 9:52 AM EDT Sent patient a [employer] message to make aware. * Telephone Encounter [...] Description 03/13/2024 9:50 AM EST Anticoagulation Pharmacy, [place] [address] [place] [facility] [place] [address] [place] [facility] [address] [place] [facility] [place] [address] 04/24/2024 2:00 PM EST Office Visit Family [facility] [address] [place] [address] Cj Irby MD [address] [place] [address] 07/01/2024 8:30 AM EST Office Visit Cardiology, [facility] [address] [place] [address] Rafael Damon DO [address] [place] [address] 09/18/2024 10:00 AM EDT Office Visit Sleep Disorders [facility] [address] [place] [phone] Vivian Del Cid CRNP [address] [place] [address] 10/07/2024 1:00 PM EDT Cardiac Studies Cardiac Studies, [facility] [address] [place] [address] 01/28/2025 9:30 AM EDT Office Visit Cardiology, [facility] [address] [place] [address] Rafael Damon DO [address] [place] [address] Scheduled Orders Name Type Priority Associated Diagnoses Orde r Schedule BASIC METABOLIC PANEL Lab Routine HTN, goal below 130/80 Expected: 03/11/2024, Expires: 03/07/2025 Scheduled Procedures Name Priority Associated Diagnoses Date/Ti [...] Additional history exists CKD HGB USE SMARTSET 32659 03/06/202503/06, 03/29/2023, 03/29/2023, Additional history exists CKD PHOS USE SMARTSET 33017 03/06/202502/07, 10/27/2022, 09/05/2003 Colonoscopy 02/03/2027 02/03/2022, 01/07, [...] this encounter Medical Devices Implanted Type Area Accounts Payable Lead Device Identifier Shelf Expiration Date Model / Serial / Lot Suture Steel 6 B&S19 M654g - [id number] Implanted:Qty: 4 on 01/29/2020 by Pavan Hernandez MD [place] [facility] [place] Sternum JN[place] : [employer] 08/05/2024 [id number] / / [id number] documented as of this encounter Visit Diagnoses Diagnosis HTN, goal [...] Yes, not cu rrently available Care Teams Rose Grader Relationship Specialty Start Date End Date Cj Irby MD [address] [place] [address] PCP - General 10/29/1997 documented as of this encounter
--- OUTSIDE RECORDS SUMMARY | 2024-03-20 14:56 | External Medical Summary ---
Author Name Unknown Address Unknown Organization K01:LAB[facility]ATORY [facility] - [address] [place] [address] Laboratory Report Ordering Provider Test Date Status JOELLE BARRERA 03/06/2024 11:37:18 Final Observation Date Value Abnormality Reference (Units ) Status Phosphate 03/06/2024 11:37:18 3.3 2.5-4.8 (m g/dL) Final Performing Location LAB[facility]ATORY [facility] - [address] [place] [address]
--- NOTE | 2024-03-20 15:09 | Anesthesiology Progress Note ---
Date of Service March 20, 2024 Anesthesia Post Procedure Vital Signs Vital Signs: Temp Pulse Pulse Resp BP Pulse Ox O2 Del Method 03/20/24 14:50 36.4 C L 64 16 134/69 95 Room Air 03/20/24 14:20 35.7 C L 60 16 109/53 L 94 Room Air 03/20/24 13:50 36.5 C 54 L 16 121/56 L 96 Room Air 03/20/24 13:30 59 L 13 106/46 L 95 Room Air 03/20/24 13:20 36.4 C L 58 L 19 102/44 L 95 Room Air 03/20/24 13:10 55 L 15 101/40 L 97 Oxymask 03/20/24 13:00 57 L 15 100/44 L 97 Oxymask 03/20/24 12:50 54 L 17 87/41 L 99 Oxymask 03/20/24 12:40 36.4 C L 66 20 91/42 L 96 Oxymask 03/20/24 09:08 36.5 C 54 L 18 127/50 L 96 Room Air O2 Flow Rate 03/20/24 14:50 03/20/24 14:20 03/20/24 13:50 03/20/24 13:30 0 03/20/24 13:20 0 03/20/24 13:10 4 03/20/24 13:00 8 03/20/24 12:50 12 03/20/24 12:40 12 03/20/24 09:08 Transfer of Care Handoff Completed per policy Notes Mental Status: alert / awake / arousable and participated in evaluation Nausea / Vomiting: adequately controlled Pain: adequately controlled Airway Patency, RR, SpO2: stable & adequate BP & HR: stable & adequate Hydration State: stable & adequate Neuraxial Anesthesia: was administered Anesthetic Complications: no major complications apparent and Pt Satisfied with anesthetic care
[2024-03-20] MEDS: FUROSEMIDE 20 MG TAB PO SCH (15:28)
[2024-03-20] MEDS: WARFARIN SOD 10 MG TAB PO ONE (15:28)
[2024-03-20] MEDS: KETOROLAC TROMETHAMINE 15 MG/ML VIAL IV SCH (15:28)
[2024-03-20] MEDS: ASCORBIC ACID 500 MG TAB PO SCH (18:03)
[2024-03-20] MEDS: TRANEXAMIC ACID / 0.7% NACL 1,000 MG/100 ML BAG IV SCH (18:20)
[2024-03-20] MEDS: METOPROLOL TARTRATE 25 MG TAB PO SCH (20:55)
[2024-03-20] MEDS: SENNA 8.6 MG TAB PO SCH (20:55)
[2024-03-20] MEDS: EZETIMIBE 10 MG TAB PO SCH (20:56)
[2024-03-20] MEDS: DOCUSATE SODIUM 100 MG CAP PO SCH (20:56)
[2024-03-20] MEDS: ATORVASTATIN 40 MG TAB PO SCH (20:56)
[2024-03-20] MEDS ORDERED: SENNA 8.6 MG TAB PO SCH (21:00)
[2024-03-20] MEDS: traZODone HCL 50 MG TAB PO PRN (22:47)
[2024-03-21] MEDS: oxyCODONE HCL IR 5 MG TAB (IMMEDIATE RELEASE) PO PRN (05:03)
[2024-03-21 06:43] LABS: Hematocrit (blood only) 29.4 % (42.0-52.0); Hemoglobin 10.2 g/dl (14.0-18.0); Mean Corpuscular Hemoglobin 32.4 pg (25.0-34.0); Mean Corpuscular Hgb Conc 34.7 g/dL (32.0-36.0); Mean Corpuscular Volume 93.3 fL (80.0-100.0); Mean Platelet Volume 9.9 fL (9.4-12.4); Platelet Count 182 K/uL (130-400); RDW Coefficient of Variation 13.2 % (11.5-14.5); Red Blood Count 3.15 M/uL (4.70-6.10); White Blood Count 8.99 K/ul (4.8-10.8)
[2024-03-21 07:03] LABS: BUN Creatinine Ratio 24.4 (10-20); Calcium 8.8 mg/dl (8.6-10.3); Creatinine Clr Calc Pharmacy 44.1 ml/min; Potassium 4.5 mmol/L (3.5-5.1)
--- NOTE | 2024-03-21 07:03 | Orthopedic Progress Note ---
Date of Service March 21, 2024 Assessment & Plan (1) Status post right knee replacement: Plan: 74-year-old gentleman postop day 1 from a right knee replacement doing pretty well. Pain is controlled. He is neurologically intact. He is hoping to go home today. Plan: 1. DVT prophylaxis including Thiede teds, SCDs, and back on Coumadin. Will get 10 mg today then back on his normal dose tomorrow. 2. PT/OT. Weight-bear as tolerated. Right total knee protocol. 3. Pain control. Doing well with current pain regimen. 4. Disposition. Plan to discharge home with some home health if he does okay in therapy today. Admission and Anticipated Discharge Date Admission Date: March 20, 2024 Subjective 74-year-old gentleman postop day 1 from a right knee replacement. He is doing pretty well. Had a pretty good night. Pains controlled. No chest pain or shortness of breath. Not feeling dizzy or lightheaded. Physical Exam Physical Exam: Physical examination is a pleasant elderly male. He was lying in bed this morning watching TV and looks pretty comfortable. Examination of the right leg reveals the dressing be clean dry and intact. He can dorsiflex and plantarflex his foot appropriately. He is neurologically intact. Respiratory: normal respiratory effort, lungs clear to auscultation Cardiovascular: RRR, no murmur, no edema Gastrointestinal (Abdomen): normal bowel sounds, soft, nontender, no hepatosplenomegaly Results & Data Vital Signs (Past 12 Hours) Vital Signs Temp Pulse Resp BP Pulse Ox O2 Del Method 03/21/24 02:52 36.8 C 61 20 134/70 96 Room Air, CPAP 03/20/24 23:19 36.5 C 69 14 129/65 94 Room Air 03/20/24 21:00 Room Air, CPAP 03/20/24 19:12 36.4 C L 72 14 156/70 H 96 Room Air Laboratory Results Hemoglobin is 10.2. Hematocrit is 29.4. INR is pending. Electrolytes are pending.
[2024-03-21 07:14] LABS: INR 1.2 (0.9-1.1); Prothrombin Time 12.4 Seconds (9.0-12.0)
[2024-03-21 07:45] VITALS: BP 117/62; PULSE 62; RESP 16; TEMP 97.9; O2SAT 95
[2024-03-21] MEDS: allopurinoL 100 MG TAB PO SCH (07:55)
[2024-03-21] MEDS: amLODIPine BESYLATE 5 MG TAB PO SCH (07:55)
[2024-03-21] MEDS: TAMSULOSIN HCL 0.4 MG CAP PO SCH (07:56)
[2024-03-21] MEDS: MULTIVITAMIN TAB PO SCH (07:56)
[2024-03-21] MEDS: PANTOprazole 40 MG TAB PO SCH (07:56)
[2024-03-21] MEDS: lisinopril 10 MG TAB PO SCH (07:56)
[2024-03-21] MEDS: CYANOCOBALAMIN (B-12) 500 MCG TABLET PO SCH (07:56)
[2024-03-21] MEDS: OMEGA-3 (PURIFIED FISH OIL) 1 GM CAP PO SCH (07:56)
[2024-03-21] MEDS: CHOLECALCIFEROL 25 MCG (1000 UNITS) TAB PO SCH (07:56)
[2024-03-21] MEDS: dexAMETHasone 10 MG in SYRINGE 0 ML IV SCH (07:57)
[2024-03-21] MEDS: WARFARIN SOD 10 MG TAB PO ONE (10:36)
[2024-03-21] MEDS: ASPIRIN 81 MG CHEW PO SCH (10:36)
--- NOTE | 2024-03-23 06:46 | Discharge Summary ---
Date of Service March 23, 2024 Admission HPI (Per Admitting) . The patient is a 74-year-old gentleman long-term patient of mine who now presents for surgical treatment of his right knee. He has a long history of knee problems and we did a left partial knee replacement on him back in 2019. He has done quite well from this. Over the past several years he has developed progressive right knee pain discomfort. We have been injecting his knee on a regular basis which has become less successful. He now like to proceed with right knee replacement. Of note he does have history of cardiac bypass surgery in 2019. He follows by Dr. Wallace and been cleared for surgery. Admission Exam (Per Admitting) . Physical examination reveals a pleasant middle-aged gentleman. Looks to be in pretty good health. Examination of the right knee reveal patient ambulates independently. Is got varus alignment to his knee. He is got bony hypertrophy medially. His range of motion is 5 degrees short of full extension to 120 degrees of flexion. There is no instability. No particular pain with hip motion. He is neurovascularly intact. Principal Diagnosis Same as "Discharge Diagnosis" noted below under Discharge Instructions. Discharge Data Procedures Performed Operation Date: 03/20/24 10:40 Actual Procedures p Right Total Knee Arthroplasty(Right) - Rafael Keating MD Ordered Studies 03/20/24 05:00 US - OR guided needle placemen Routine Hospital Course (1) Status post right knee replacement: This is a 74 year old patient admitted on 03/20/24 and underwent total knee arthroplasty. He tolerated the procedure well and there were no complications. Transferred to the PACU post op and later to the orthopedic floor for further care. He was given ancef for antibiotic prophylaxis. He was also given NEDA stockings, SCDs, and coumadin for DVT prophylaxis. Hemoglobin, hematocrit, and vital signs were monitored during his hospital stay and remained stable. Did not require any blood transfusions. There were no complications during his hospital stay. By post op day #1 the patient was tolerating a regular diet, pain was reasonably controlled with oral pain medicine, and he was participating in physical therapy. On post op day #1 the patient was discharged home and set up with home health care. He was given printed discharge instructions including prescriptions for extra strength tylenol, cefadroxil, zofran, senokot, oxycodone, and flomax. Continue coumadin. Continue physical therapy, weight bearing as tolerated. Continue NEDA stockings. Follow up approximately 2 weeks post op or sooner if there are problems or concerns. Discharge Plan Discharge Items Patient Disposition: Home - Home Health Services Reason For Visit: Right Knee Osteoarthritis Discharge Diagnosis: Right Knee Replacement Activity: Per Instructions section Weightbearing: Full weightbearing Non-emergency contact: Surgeon Call non-emergency contact if: you have any medication questions Follow-up/Referrals: Cj Irby MD [Primary Care Provider] - Diet: Regular and Carb Consistent or DM2 Addtl Attending Provider Instructions: ACTIVITY RECOMMENDATIONS: Diet: * You may resume previous diet. Physical Therapy: * You will go to physical therapy three times each week for four to six weeks after your surgery in order to regain your knee range of motion and to retrain your knee to work properly. * It is just as important to make sure you are getting your knee perfectly straight as it is to regain your knee bend. * Taking a pain pill an hour before therapy can help you have a more productive and comfortable therapy session. Home Exercise: * You were shown a series of exercises (heel props, heel slides, etc.) in the hospital. Do these exercises three to four times each day including the exercises you were shown in physical therapy. Walking: * Get up and walk several times each day. For the first four weeks, try not to stand or walk for more than one hour at a time. If you do stand or walk for more than one hour, you will not hurt anything, but your knee and leg will likely swell. * As you feel comfortable, you may change from the walker or crutches to a cane and then to independent walking. MEDICATIONS: New Medicine: * You will likely be taking one or more of these medications: 1. Oxycodone - A quick and shorter-acting pain medication. Take one to two tablets every six hours to lessen your pain. 2. Coumadin - Thins your blood to lessen the chance of forming a blood clot. * The most common side effects of pain medicine and iron are nausea and constipation. If nausea or constipation is too much of a problem or if you have any questions about your new medicines or doses, call [facility] at . We will try to help you manage these issues. "VERY IMPORTANT TO READ AND REVIEW" Pain: * The immediate post-operative period after knee replacement surgery is often quite painful. * You are given a prescription for pain medicine. You should take it, as directed, when you need it, especially before physical therapy and before going to bed. Pain that interferes with sleep is very common and can last several months. * You will likely need pain medicine for the first four to six weeks. It will not stop all of the pain. The pain will lessen and as you feel better, you may change to milder pain medicine such as Tylenol. * The most common side effects of pain medicine are nausea and constipation, so don't take more than you need. SPECIAL CARE INSTRUCTIONS: TEDs/Elastic Stockings: * The white elastic stockings help limit swelling and prevent blood clots from forming in your legs. The more you wear them, the more they work. * Wear them for six weeks after knee replacement surgery and four weeks after partial knee replacement. Incision Site Care: * Remove dressing postoperative day 2 and then shower. Keep direct shower pressure off the incision site. * After showering, cover flakito with dry gauze and change daily or more frequently if the dressing is getting saturated with drainage. * Use the NEDA stockings to hold dressing in place. DO NOT apply tape on the skin. * May completely stop using bandage if wound is dry and no drainage * [place] are removed between 2 and 3 weeks post-op. If your follow-up appointment is made before 2 weeks, please have your appointment re- scheduled. It is too early to remove the flakito. Prevention of Infection: * Take antibiotics one hour before any dental cleaning, dental work, urological procedure, gastrointestinal procedure or any invasive surgery in order to prevent your new joint from getting infected. * You may get the antibiotics from the doctor performing the procedure or you may call our office at [phone] before and we will call in a prescription to the pharmacy of your choice. Things to Watch For: * Drainage from the incision site that occurs more than one week after your surgery. * Severely increased knee/leg pain or swelling. * Increased redness at the incision site. * Fever above 102 degrees Fahrenheit. * Unusual chest pain or shortness of breath. * Unusual pain or burning with urination. Call [facility] at [phone] with any of the above problems or if you have any questions about your medicines or recovery. FOLLOW UP VISIT: Make an appointment to see your doctor for approximately two weeks after surgery for a progress check and staple removal by calling the office at [phone]. Pending Studies at Discharge: No Stand-Alone Forms: My [facility], Smoking Cessation Medications and DC Order Prescriptions: Continued sennosides [Senokot] 8.6 mg tablet 8.6 mg PO BID 14 Days Qty: 28 0RF Rx Instructions: Take two times a day to prevent/treat constipation acetaminophen [Tylenol Extra Strength] 500 mg tablet 1,000 mg PO TID 30 Days Qty: 180 0RF Rx Instructions: Take 3 times per day to lessen pain. cefadroxil 500 mg capsule 500 mg PO BID 7 Days Qty: 14 0RF Rx Instructions: Take 1 cap twice a day to prevent infection tamsulosin [Flomax] 0.4 mg capsule 0.4 mg PO DAILY Qty: 7 0RF Rx Instructions: Begin night BEFORE surgery to prevent urinary retention ondansetron 4 mg tablet,disintegrating 4 mg PO Q8 PRN (Reason: nausea) Qty: 20 1RF Rx Instructions: Take as needed for nausea oxycodone 5 mg tablet 5 - 10 mg PO Q6 PRN (Reason: pain) Qty: 40 0RF Rx Instructions: Take as needed for pain cholecalciferol (vitamin D3) [Vitamin D3] 1,000 unit Tablet 1,000 unit PO QAM lorazepam 1 mg tablet 0.5 mg PO HS PRN (Reason: Insomnia) albuterol sulfate 90 mcg/actuation HFA aerosol inhaler 2 puff INHALATION Q4H PRN (Reason: Shortness Of Breath Or Wheezing) ezetimibe [Zetia] 10 mg tablet 10 mg PO QPM atorvastatin 80 mg tablet 80 mg PO QPM omega-3 fatty acids [Fish Oil Concentrate] 1,000 mg Capsule 1,000 mg PO QAM aspirin 81 mg tablet,chewable 162 mg PO QAM Rx Instructions: TWO TABLET DOSE EVERY MORNING warfarin 5 mg tablet 5 mg PO 6XWK warfarin 5 mg tablet 2.5 mg PO WK Rx Instructions: TAKE 2.5MG EVERY MONDAY TAKE THIS MED MID-DAY. omeprazole 20 mg capsule,delayed release(DR/EC) 20 mg PO QAM metoprolol tartrate 25 mg tablet 25 mg PO BID trazodone 50 mg tablet 50 mg PO HS PRN (Reason: Insomnia) cyanocobalamin (vitamin B-12) [Vitamin B-12] 1,000 mcg Tablet 1,000 mcg PO QAM amlodipine 2.5 mg Tablet 2.5 mg PO QAM allopurinol 100 mg Tablet 100 mg PO QAM furosemide 20 mg Tablet 20 mg PO 3XWK Patient Comments: takes mon/wed/fri in am lisinopril 10 mg Tablet 10 mg PO QAM Admission Data Admit Date/Time: 03/20/24 12:39 Attending Provider: Rafael Keating Admit Provider: Rafael Keating Primary Care Provider: Cj Irby Other Providers: [facility],Home Health Other Interventions: Discharge Summary Assessment (RN) Last Done: 03/21/24 09:03
== END 2024-03-21 11:00 | disposition home health service (06) ==
LOC: ASU 08:32 → 3E 08:32